=== PATIENT | male | born 1955 | race African-American/Black ===

== ENCOUNTER 2016-12-21 02:11 | Inpatient (IN) | payer MEDICARE, MEDICAID ==
[2016-12-21] VITALS (7 sets, daily range): BP systolic 89–125; BP diastolic 50–62
[~2016-12-21] VITALS: Ht 185.4 cm; Wt 91.3 kg
[~2016-12-21 02:11] MED LIST: ABILIFY5 MG ORAL; ASPIR 8181 MG ORAL; ASPIRIN81 M1 PO; CITALOPRAM HBR20 M1 ORAL; CITALOPRAM HBR20 MG PO; CITALOPRAM10 MG/5 ML PO; COREG6.25 MG ORAL; COREG6.25 MG PO; COUMADIN7.5 MG ORAL; COUMADIN7.5 MG PO; FUROSEMIDE40 MG ORAL; FUROSEMIDE40 MG PO; KLOR-CON 88 MEQ PO; LISINOPRIL5 MG ORAL; METHADONE HCL5 MG PO; NEXIUM40 MG ORAL; NEXIUM40 MG PO; NITROSTAT0.4 MG SL; NORCO 7.5-3251 EACH ORAL; OMEPRAZOLE40 MG PO; OXYCODONE HCL5 M2 ORAL; POTASSIUM CHLOR8 ME3 PO; PRAVACHOL20 MG ORAL; PREVASTATIN SODIUM PO; RANITIDINE HCL150 MG PO; SIMVASTATIN20 MG ORAL; SIMVASTATIN20 MG PO; VICODIN ES 7.51 EACH PO; ZANTAC150 MG ORAL; ZESTRIL5 MG PO
[2016-12-21] MEDS ORDERED: ATIVAN0.5 MG ORAL (02:23)
[2016-12-21] MEDS ORDERED: LASIX40 MG ORAL (02:23)
[2016-12-21] MEDS ORDERED: POTASSIUM CHLO10 ME3 ORAL (02:23)
[2016-12-21] MEDS ORDERED: PROTONIX40 MG ORAL (02:23)
[2016-12-21] MEDS ORDERED: OXYCONTIN20 MG ORAL (02:23)
[2016-12-21] MEDS ORDERED: ASPIR-TRIN325 M1 ORAL (02:23)
[2016-12-21] MEDS ORDERED: CEPHALEXIN500 MG ORAL (02:23)
[2016-12-21] MEDS ORDERED: AMIODARONE HCL200 MG ORAL (02:23)
[2016-12-21] MEDS ORDERED: ROXICODONE15 MG ORAL (02:23)
[2016-12-21] MEDS ORDERED: HYDROmorphone 1mg/ml Carpuject IVP ONE (02:30)
[2016-12-21 02:46] LABS: BASOPHILS % (AUTO) 1.2 % (0.0-2.0); EOSINOPHILS % (AUTO) 4.4 % (0.0-3.0); LYMPHOCYTES % (AUTO) 7.4 % (20.0-45.0); MEAN CORPUSCULAR HEMOGLOBIN 30.1 PG (27.0-31.0); MEAN CORPUSCULAR HGB CONC 31.9 G/DL (32.0-36.0); MEAN CORPUSCULAR VOLUME 95 FL (80-99); MEAN PLATELET VOLUME 7.3 FL (6.5-10.1); MONOCYTES % (AUTO) 7.6 % (1.0-10.0); NEUTROPHILS % (AUTO) 79.4 % (45.0-75.0); PLATELET COUNT 176 K/UL (150-450); RED CELL DISTRIBUTION WIDTH 14.4 % (11.6-14.8); WHITE BLOOD COUNT 7.8 K/UL (4.8-10.8)
[2016-12-21 02:57] LABS: INR 1.1 (0.9-1.1)
[2016-12-21 03:04] LABS: ALANINE AMINOTRANSFERASE 12 U/L (3-41); ALBUMIN/GLOBULIN RATIO 0.9 (1.0-2.7); ANION GAP 14 (5-15); ASPARTATE AMINO TRANSFERASE 27 U/L (5-40); CALCIUM 9.3 mg/dL (8.6-10.2); CARBON DIOXIDE 26 mEQ/L (20-30); CHLORIDE 98 mEQ/L (98-107); CREATININE 1.2 mg/dL (0.7-1.2); GLOMERULAR FILTRATION RATE > 60 mL/min (>60); HEMOLYSIS 2; POTASSIUM 4.4 mEQ/L (3.4-4.9); SODIUM 138 mEQ/L (135-145); TOTAL PROTEIN 6.7 g/dL (6.6-8.7)
[2016-12-21] MEDS ORDERED: Oxycodone/Acetaminophen 5-325 ORAL PRN ×2 (03:30→07:11)
[2016-12-21 03:53] LABS: TROPONIN I < 0.30 ng/mL (<=0.30)
[2016-12-21 03:54] LABS: BILIRUBIN,DIRECT 1.1 mg/dL (0.1-0.3)
--- NOTE | 2016-12-21 04:09 | Emergency Room Report ---
History of Present Illness General Chief Complaint: Chest Pain Source: Patient, Medical Record, EMS Present Illness HPI Is a 61-year-old male with a history of CAD and hypertension. He had a recent tricuspid valve replacement. He was just sent to a skilled nursing for rehabilitation. There he complaining of chest pain and shortness of breath. Was sent here to be evaluated. Patient pain is 10 out of 10. No nausea no vomiting. No fever or chills. No swelling. He has been here in the past for multiple pain complaint. He requested Dilaudid and Benadryl. Allergies: Coded Allergies: DABIGATRAN ETEXILATE (Unverified Allergy, Unknown, 12/21/16) KETOROLAC (Verified Allergy, Unknown, 11/17/11) KETOROLAC TROMETHAMINE (Unverified Allergy, Unknown, 02/05/16) UNK MORPHINE (Verified Allergy, Unknown, 11/17/11) Patient History Past Medical History: see triage record, old chart reviewed, HTN, CAD, CHF Past Surgical History: other Pertinent Family History: none Social History: Denies: drug use Immunizations: other Reviewed Nursing Documentation: PMH: Agreed, PSxH: Agreed Nursing Documentation-PMH Hx Cardiac Problems: Yes - DVT,PE ,IVC filter,3 heart attacks Hx Hypertension: Yes Hx Pacemaker: Yes - Defib/pacemaker Hx COPD: Yes Hx Diabetes: No Hx Cancer: No Hx Gastrointestinal Problems: Yes Hx Neurological Problems: Yes Hx Cerebrovascular Accident: Yes Hx Seizures: Yes Hx Epilepsy: Yes Hx Vertigo: Yes Hx Dizziness: Yes Hx Syncope: Yes Hx Headaches: Yes Hx Numbness: Yes Hx Weakness: Yes - LEFT ARM Hx Fatigue: Yes Review of Systems Eye: Denies: blurred vision, eye pain ENT: Denies: ear pain, nose congestion, throat swelling Respiratory: Denies: cough, shortness of breath Cardiovascular: Reports: chest pain, Denies: palpitations Gastrointestinal: Denies: abdominal pain, diarrhea, nausea, vomiting Musculoskeletal: Denies: back pain, joint pain Skin: Denies: rash Neurological: Denies: headache, numbness Endocrine: Denies: increased thirst, increased urine Hematologic/Lymphatic: Denies: easy bruising All Other Systems: negative except mentioned in HPI Physical Exam Vital Signs Date Time Temp Pulse Resp B/P Pulse Ox O2 Delivery O2 Flow Rate FiO2 12/21/16 02:02 98.4 80 16 118/57 100 Room Air vitals normal Sp02 EP Interpretation: reviewed, normal General Appearance: well appearing, no apparent distress, alert Head: normocephalic, atraumatic Eyes: bilateral eye EOMI, bilateral eye PERRL ENT: hearing grossly normal, normal pharynx Neck: full range of motion, supple, no meningismus Respiratory: chest non-tender, normal breath sounds, rales - Slight rales at the bases Cardiovascular #1: regular rate, rhythm, no murmur Gastrointestinal: normal bowel sounds, non tender, no mass, no organomegaly, no bruit, non-distended Musculoskeletal: back normal, normal range of motion Neurologic: alert, oriented x3 Psychiatric: mood/affect normal Skin: warm/dry Medical Decision Making Diagnostic Impression: Primary Impression: Chest pain Qualified Codes: R07.9 - Chest pain, unspecified Additional Impressions: Opioid dependence Qualified Codes: F11.29 - Opioid dependence with unspecified opioid-induced disorder CHF (congestive heart failure) Qualified Codes: I50.9 - Heart failure, unspecified History of cocaine abuse Anemia Qualified Codes: D64.9 - Anemia, unspecified ER Course Patient presents with chest pain. First set of troponin is negative. I suspect this is more of an opioid/drug-seeking behavior other than cardiac in etiology. Because of his recent surgery, will admit for further workup. He does have some slight fluid overloaded. He diuresed well. I contacted Dr. Michel for admission. Lab Results Impression labs unremarkable EKG Diagnostic Results EKG Time: 04:08 Rate: normal Rhythm: NSR ST Segments: no acute changes Rhythm Strip Diag. Results Rhythm Strip Time: 04:08 EP Interpretation: yes Rate: 80 Rhythm: NSR, no PVC's, no ectopy Chest X-Ray Diagnostic Results Chest X-Ray Diagnostic Results : Chest X-Ray Ordered: Yes # of Views/Limited/Complete: 1 View Indication: Chest Pain EP Interpretation: Yes Interpretation: no consolidation, no pneumothorax, other - CM with right effusion. Last Vital Signs Date Time Temp Pulse Resp B/P Pulse Ox O2 Delivery O2 Flow Rate FiO2 12/21/16 03:22 81 18 Room Air 12/21/16 03:20 125/59 96 12/21/16 02:02 98.4 Status: improved Disposition: ADMITTED INPATIENT Condition: Serious Referrals: Claudio Michel MD (PCP) RONALDO ALVARADO M.D. Dec 21, 2016 04:09
[2016-12-21] MEDS ORDERED: HYDROmorphone 1mg/ml Carpuject IVP PRN ×2 (04:55→08:55)
[2016-12-21] MEDS: HYDROmorphone 1mg/ml Carpuject IVP PRN ×2 (05:39→09:58)
[2016-12-21] MEDS ORDERED: TYLENOL EXTRA500 MG ORAL (06:01)
[2016-12-21] MEDS ORDERED: IPRATROPIU0.2 MG/1 M HHN (06:01)
[2016-12-21] MEDS ORDERED: DOCUSATE SODIU100 MG ORAL (06:01)
[2016-12-21] MEDS ORDERED: ALBUTEROL2.5 MG/3 M INH (06:01)
[2016-12-21] MEDS ORDERED: FLEET ENEMA133 ML RECTAL (06:01)
[2016-12-21] MEDS ORDERED: MILK OF MA400 MG/51 ORAL (06:01)
[2016-12-21] MEDS ORDERED: Miralax 17gm pkt ORAL PRN (06:30)
[2016-12-21] MEDS ORDERED: DuoNeb 0.5-3(2.5)mg/3ml neb HHN PRN (06:30)
--- NOTE | 2016-12-21 08:30 | Diagnostic Imaging Report ---
Indications: Chest pain Technique: Portable AP chest Findings: Comparison: 03/03/14 Cardiac silhouette has increased in size. Pulmonary vascular redistribution, bilateral interstitial infiltrates, bilateral pleural effusions have developed. Calcification and mild elongation aortic arch unchanged. Sternal wires, left chest wall pacemaker now present. IMPRESSION: Development of congestive heart failure Interval sternotomy, pacemaker placement
[2016-12-21] MEDS ORDERED: Heparin 5000 units/ml inj SUBQ SCH (09:00)
[2016-12-21 10:08] LABS: TROPONIN I < 0.30 ng/mL (<=0.30)
--- NOTE | 2016-12-21 10:55 | Consultation ---
History of Present Illness General Date patient seen: Dec 21, 2016 Chief Complaint: Chest Pain Referring physician: Dr. Michel Reason for Consultation: chest pain Present Illness HPI 61 year old male with hx of CAD, underwent tricuspid valve replacement and ICD placement, was transferred to rehab on [place], Pt started having chest pain at the facility and transferred to [facility] [place]. Allergies: Coded Allergies: DABIGATRAN ETEXILATE (Unverified Allergy, Unknown, 12/21/16) KETOROLAC (Verified Allergy, Unknown, 11/17/11) KETOROLAC TROMETHAMINE (Unverified Allergy, Unknown, 02/05/16) UNK MORPHINE (Verified Allergy, Unknown, 11/17/11) Medication History Scheduled Amiodarone Hcl* (Cordarone*), 200 MG ORAL EVERY 12 HOURS, (Reported) Aspirin* (Aspir-Kerry*), 325 MG ORAL DAILY, (Reported) Cephalexin* (Keflex*), 500 MG ORAL EVERY 8 HOURS, (Reported) Docusate Sodium* (Docusate Sodium*), 100 MG ORAL TWICE A DAY, (Reported) Furosemide* (Lasix*), 40 MG ORAL EVERY 12 HOURS, (Reported) Lorazepam* (Ativan*), 0.5 MG ORAL THREE TIMES A DAY, (Reported) Oxycodone Hcl Er* (Oxycontin*), 20 MG ORAL EVERY 12 HOURS, (Reported) Pantoprazole* (Protonix*), 40 MG ORAL DAILY, (Reported) Potassium Chloride (Potassium Chloride), 20 MEQ ORAL DAILY, (Reported) Scheduled PRN Acetaminophen* (Tylenol Extra Strength*), 500 MG ORAL Q6H PRN for Mild Pain/ Temp > 100.5, (Reported) Albuterol Sulfate* (Albuterol Sulfate Hhn*), 3 ML INH Q4H PRN for Shortness of Breath, (Reported) Ipratropium [place] 0.5MG/2.5ML (Ipratropium [place] 0.5MG/2.5ML), 0.5 MG HHN Q4HR PRN for Shortness of Breath, (Reported) Magnesium Hydroxide* (Milk Of Magnesia*), 30 ML ORAL BID PRN for Constipation, ( Reported) Na Phos,M-B/Na Phos,Di-Ba* (Fleet Enema*), 133 ML RECTAL DAILY PRN for Constipation, (Reported) OXYCODONE HCl* (Roxicodone*), 15 MG ORAL Q4HR PRN for For Pain, (Reported) Discontinued Medications Aripiprazole* (Abilify*), 5 MG ORAL DAILY, (Reported) Discontinued Reason: Pt stopped taking med Aspirin* (Aspir 81*), 81 MG ORAL DAILY, (Reported) Discontinued Reason: Pt stopped taking med Carvedilol (Coreg), 6.25 MG ORAL DAILY, (Reported) Discontinued Reason: Pt stopped taking med Citalopram Hydrobromide* (Citalopram Hbr*), 20 MG ORAL BID, (Reported) Discontinued Reason: Pt stopped taking med Esomeprazole Magnesium (Nexium), 40 MG ORAL DAILY, (Reported) Discontinued Reason: Pt stopped taking med Furosemide* (Lasix*), 40 MG ORAL DAILY, (Reported) Discontinued Reason: Pt stopped taking med Hydrocodone Bit/Acetaminophen 7.5-325* ([place] 7.5-325*), 1 TAB ORAL Q6H PRN for For Pain Discontinued Reason: Pt stopped taking med Hydrocodone/Acetaminophen 7.5-750 (Vicodin Es 7.5-750), 1 TAB PO BID, (Reported) Discontinued Reason: Pt stopped taking med Lisinopril (Lisinopril*), 5 MG ORAL BID, (Reported) Discontinued Reason: Pt stopped taking med Methadone Hcl* (Methadone*), 0 PO BID, (Reported) Discontinued Reason: Pt stopped taking med Nitroglycerin (Nitrostat), 0.4 MG SL, (Reported) Discontinued Reason: Pt stopped taking med Omeprazole (Omeprazole), 40 MG PO DAILY, (Reported) Discontinued Reason: Pt stopped taking med Oxycodone Hcl* (Oxycodone Hcl*), MG ORAL PRN, (Reported) Discontinued Reason: Pt stopped taking med Potassium Chloride (Potassium Chloride), 8 MEQ PO BID, (Reported) Discontinued Reason: Pt stopped taking med Pravastatin Sod* (Pravachol*), 20 MG ORAL BEDTIME, (Reported) Discontinued Reason: Pt stopped taking med Ranitidine Hcl* (Zantac*), 150 MG ORAL DAILY, (Reported) Discontinued Reason: Pt stopped taking med Simvastatin (Zocor), 20 MG ORAL BEDTIME, (Reported) Discontinued Reason: Pt stopped taking med Warfarin Sod (Coumadin*), 7.5 MG ORAL DAILY, (Reported) Discontinued Reason: Pt stopped taking med Patient History Healthcare decision maker Resuscitation status Full Code Advanced Directive on File Past Medical/Surgical History Past Medical/Surgical History: (1) History of cocaine abuse (2) Opioid dependence (3) Hypertension (4) History of DVT (deep vein thrombosis) (5) Cardiomyopathy (6) Depression Review of Systems All Other Systems: negative except mentioned in HPI Physical Exam General Appearance: WD/WN, no apparent distress Lines, tubes and drains: peripheral HEENT: normocephalic, atraumatic Neck: non-tender, normal alignment Respiratory/Chest: chest wall non-tender, lungs clear Breasts: no masses Cardiovascular/Chest: normal peripheral pulses, pacemaker/AICD, other - chest wall tenderness Abdomen: normal bowel sounds, non tender Genitourinary/Rectal: normal genital exam, normal rectal exam Extremities: normal range of motion, non-tender Skin Exam: normal pigmentation Neurologic: director of residential services II-XII grossly normal Last 24 Hour Vital Signs Date Time Temp Pulse Resp B/P Pulse Ox O2 Delivery O2 Flow Rate FiO2 12/21/16 09:50 80 18 106/55 99 Nasal Cannula 3.0 12/21/16 08:00 98.2 80 22 89/50 100 Nasal Cannula 3.0 12/21/16 07:24 80 12/21/16 07:11 Nasal Cannula 3.0 32 12/21/16 07:11 98 Nasal Cannula 3.0 32 12/21/16 07:11 83 18 Nasal Cannula 3.0 32 12/21/16 04:16 98.4 18 125/59 96 Room Air 12/21/16 03:22 81 18 Room Air 12/21/16 03:20 81 18 125/59 96 Room Air 12/21/16 02:02 98.4 80 16 118/57 100 Room Air Intake and Output 12/20/16 12/21/16 19:00 07:00 Intake Total 0 ml Output Total 0 ml Balance 0 ml Intake Oral 0 ml Output Urine Total 0 ml Laboratory Tests Test 12/21/16 02:22 12/21/16 08:10 White Blood Count 7.8 K/UL (4.8-10.8) Red Blood Count 2.90 M/UL (4.70-6.10) L Hemoglobin 8.7 G/DL (14.2-18.0) L Hematocrit 27.4 % (42.0-52.0) L Mean Corpuscular Volume 95 FL (80-99) Mean Corpuscular Hemoglobin 30.1 PG (27.0-31.0) Mean Corpuscular Hemoglobin Concent 31.9 G/DL (32.0-36.0) L Red Cell Distribution Width 14.4 % (11.6-14.8) Platelet Count 176 K/UL (150-450) Mean Platelet Volume 7.3 FL (6.5-10.1) Neutrophils (%) (Auto) 79.4 % (45.0-75.0) H Lymphocytes (%) (Auto) 7.4 % (20.0-45.0) L Monocytes (%) (Auto) 7.6 % (1.0-10.0) Eosinophils (%) (Auto) 4.4 % (0.0-3.0) H Basophils (%) (Auto) 1.2 % (0.0-2.0) Prothrombin Time 12.0 SEC (9.30-11.50) H Prothromb Time International Ratio 1.1 (0.9-1.1) Activated Partial Thromboplast Time 27 SEC (23-33) Sodium Level 138 mEQ/L (135-145) Potassium Level 4.4 mEQ/L (3.4-4.9) Chloride Level 98 mEQ/L (98-107) Carbon Dioxide Level 26 mEQ/L (20-30) Anion Gap 14 (5-15) Blood Urea Nitrogen 15 mg/dL (7-23) Creatinine 1.2 mg/dL (0.7-1.2) Estimat Glomerular Filtration Rate > 60 mL/min (>60) Glucose Level 102 mg/dL (74-106) Calcium Level 9.3 mg/dL (8.6-10.2) Total Bilirubin 1.9 mg/dL (0.0-1.2) H Direct Bilirubin 1.1 mg/dL (0.1-0.3) H Aspartate Amino Transf (AST/SGOT) 27 U/L (5-40) Alanine Aminotransferase (ALT/SGPT) 12 U/L (3-41) Alkaline Phosphatase 325 U/L (40-129) H Total Creatine Kinase 97 U/L (38-174) Creatine Kinase MB 2.0 ng/mL (< 6.7) Creatine Kinase MB Relative Index 2.0 Troponin I < 0.30 ng/mL (<=0.30) < 0.30 ng/mL (<=0.30) Pro-B-Type Natriuretic Peptide 3221 pg/mL (0-125) H Total Protein 6.7 g/dL (6.6-8.7) Albumin 3.3 g/dL (3.5-5.2) L Globulin 3.4 g/dL Albumin/Globulin Ratio 0.9 (1.0-2.7) L Height (Feet): 6 Height (Inches): 1.00 Weight (Pounds): 215 Medications Current Medications Medications (Trade) Dose Ordered Sig/Ana Route PRN Reason Start Time Stop Time Status Last Admin Dose Admin Acetaminophen (Tylenol) 650 mg Q4H PRN ORAL T>100.5 12/21/16 06:30 01/20/17 06:29 Albuterol/ Ipratropium (DuoNeb 0.5-3(2.5)mg/3ml) 3 ml Q4H PRN HHN Shortness of Breath 12/21/16 06:30 12/26/16 06:29 Dextrose (Dextrose 50%) STAT PRN IV Hypoglycemia 12/21/16 06:30 01/20/17 06:29 Furosemide (Lasix) 40 mg EVERY 8 HOURS IV 12/21/16 14:00 01/20/17 13:59 Heparin Sodium (Porcine) (Heparin 5000 units/ml) 5,000 units EVERY 12 HOURS SUBQ 12/21/16 09:00 01/20/17 08:59 12/21/16 09:38 Hydromorphone HCl (Dilaudid) 1 mg Q4H PRN IVP For Pain 12/21/16 05:28 12/28/16 05:27 12/21/16 09:58 Ondansetron HCl (Zofran) 4 mg Q6H PRN IVP Nausea & Vomiting 12/21/16 06:30 01/20/17 06:29 Oxycodone/ Acetaminophen (Percocet 5-325) 1 tab Q4H PRN ORAL Moderate Pain (Pain Scale 4-6) 12/21/16 07:11 12/28/16 03:29 Polyethylene Glycol (Miralax) 17 gm DAILYPRN PRN ORAL Constipation 12/21/16 06:30 01/20/17 06:29 Temazepam (Restoril) 15 mg HSPRN PRN ORAL Insomnia 12/21/16 21:00 12/28/16 20:59 Assessment/Plan Problem List: (1) Chest wall pain following surgery ICD Codes: G89.12 - Acute post-thoracotomy pain SNOMED: 181468481 (2) COPD (chronic obstructive pulmonary disease) ICD Codes: J44.9 - Chronic obstructive pulmonary disease, unspecified SNOMED: 28746349 (3) Cardiomyopathy ICD Codes: I42.9 - Cardiomyopathy SNOMED: 85168196 Assessment/Plan symptomatic treatment doubt acute ACS echo diuretics cardiology evaluation BLAKE SHETTY Dec 21, 2016 10:55
[2016-12-21] MEDS: Eucerin Cream 15gm TOPIC SCH (14:56)
--- NOTE | 2016-12-21 17:57 | Cardiology Progress Note ---
Assessment/Plan Assessment/Plan [id number] full note dicated noton naticoagualtion ? lv thrmbus will start lwo dose heparin keep ptt about 50 after 24 hour start on couamdin watch for periocardil bleedigng Objective Last 24 Hour Vital Signs Date Time Temp Pulse Resp B/P Pulse Ox O2 Delivery O2 Flow Rate FiO2 12/21/16 16:00 80 12/21/16 14:20 80 113/59 12/21/16 12:10 88 18 100 Nasal Cannula 2.0 12/21/16 12:00 98.2 80 21 101/54 99 Nasal Cannula 3.0 12/21/16 11:50 80 16 99 Nasal Cannula 2.0 12/21/16 11:39 80 12/21/16 09:50 80 18 106/55 99 Nasal Cannula 3.0 12/21/16 08:00 98.2 80 22 89/50 100 Nasal Cannula 3.0 12/21/16 07:24 80 12/21/16 07:11 Nasal Cannula 3.0 32 12/21/16 07:11 98 Nasal Cannula 3.0 32 12/21/16 07:11 83 18 Nasal Cannula 3.0 32 12/21/16 04:16 98.4 18 125/59 96 Room Air 12/21/16 03:22 81 18 Room Air 12/21/16 03:20 81 18 125/59 96 Room Air 12/21/16 02:02 98.4 80 16 118/57 100 Room Air Intake and Output 12/20/16 12/21/16 19:00 07:00 Intake Total 0 ml Output Total 0 ml Balance 0 ml Intake Oral 0 ml Output Urine Total 0 ml Laboratory Tests Test 12/21/16 02:22 12/21/16 08:10 White Blood Count 7.8 K/UL (4.8-10.8) Red Blood Count 2.90 M/UL (4.70-6.10) L Hemoglobin 8.7 G/DL (14.2-18.0) L Hematocrit 27.4 % (42.0-52.0) L Mean Corpuscular Volume 95 FL (80-99) Mean Corpuscular Hemoglobin 30.1 PG (27.0-31.0) Mean Corpuscular Hemoglobin Concent 31.9 G/DL (32.0-36.0) L Red Cell Distribution Width 14.4 % (11.6-14.8) Platelet Count 176 K/UL (150-450) Mean Platelet Volume 7.3 FL (6.5-10.1) Neutrophils (%) (Auto) 79.4 % (45.0-75.0) H Lymphocytes (%) (Auto) 7.4 % (20.0-45.0) L Monocytes (%) (Auto) 7.6 % (1.0-10.0) Eosinophils (%) (Auto) 4.4 % (0.0-3.0) H Basophils (%) (Auto) 1.2 % (0.0-2.0) Prothrombin Time 12.0 SEC (9.30-11.50) H Prothromb Time International Ratio 1.1 (0.9-1.1) Activated Partial Thromboplast Time 27 SEC (23-33) Sodium Level 138 mEQ/L (135-145) Potassium Level 4.4 mEQ/L (3.4-4.9) Chloride Level 98 mEQ/L (98-107) Carbon Dioxide Level 26 mEQ/L (20-30) Anion Gap 14 (5-15) Blood Urea Nitrogen 15 mg/dL (7-23) Creatinine 1.2 mg/dL (0.7-1.2) Estimat Glomerular Filtration Rate > 60 mL/min (>60) Glucose Level 102 mg/dL (74-106) Calcium Level 9.3 mg/dL (8.6-10.2) Total Bilirubin 1.9 mg/dL (0.0-1.2) H Direct Bilirubin 1.1 mg/dL (0.1-0.3) H Aspartate Amino Transf (AST/SGOT) 27 U/L (5-40) Alanine Aminotransferase (ALT/SGPT) 12 U/L (3-41) Alkaline Phosphatase 325 U/L (40-129) H Total Creatine Kinase 97 U/L (38-174) Creatine Kinase MB 2.0 ng/mL (< 6.7) Creatine Kinase MB Relative Index 2.0 Troponin I < 0.30 ng/mL (<=0.30) < 0.30 ng/mL (<=0.30) Pro-B-Type Natriuretic Peptide 3221 pg/mL (0-125) H Total Protein 6.7 g/dL (6.6-8.7) Albumin 3.3 g/dL (3.5-5.2) L Globulin 3.4 g/dL Albumin/Globulin Ratio 0.9 (1.0-2.7) L AZ ALVAREZ Dec 21, 2016 17:57
[2016-12-21] MEDS ORDERED: Heparin 5000 units/ml inj IV ONE (18:00)
[2016-12-21 18:39] LABS: MEAN CORPUSCULAR HEMOGLOBIN 30.7 PG (27.0-31.0); MEAN CORPUSCULAR HGB CONC 32.5 G/DL (32.0-36.0); MEAN CORPUSCULAR VOLUME 94 FL (80-99); MEAN PLATELET VOLUME 6.1 FL (6.5-10.1); PLATELET COUNT 150 K/UL (150-450); RED BLOOD COUNT 2.56 M/UL (4.70-6.10); RED CELL DISTRIBUTION WIDTH 14.4 % (11.6-14.8); WHITE BLOOD COUNT 6.8 K/UL (4.8-10.8)
[2016-12-21] MEDS ORDERED: Heparin 25,000u/D5W 500ml 500 ML IV SCH ×2 (18:45→18:47)
--- NOTE | 2016-12-21 19:50 | History & Physical ---
History and Physical History & Physicial Dictated for Int Med-Dr Michel no. [id number]. ISAIAS ORTIZ Dec 21, 2016 19:50
[2016-12-21 19:54] LABS: ANISOCYTOSIS 1+; BAND NEUTROPHILS % (MANUAL) 0 % (0-8); BASOPHILS % (MANUAL) 1 % (0-2); EOSINOPHILS % (MANUAL) 3 % (0-3); HYPOCHROMASIA 1+; LYMPHOCYTES % (MANUAL) 15 % (20-45); NEUTROPHILS % (MANUAL) 73 % (45-75); PLATELET ESTIMATE ADEQUATE; PLATELET MORPHOLOGY NORMAL; TOTAL CELLS COUNTED 100
[2016-12-21] MEDS: Cephalexin 500mg cap ORAL SCH (20:22)
[2016-12-21] MEDS: Amiodarone 200mg tab ORAL SCH (20:22)
[2016-12-21] MEDS: LORazepam 0.5mg tab ORAL PRN (22:25)
[2016-12-21 22:44] LABS: APPEARANCE,URINE CLEAR; KETONES,URINE NEGATIVE (NEGATIVE); LEUKOCYTE ESTERASE ,URINE 1+ (NEGATIVE); NITRITE,URINE NEGATIVE (NEGATIVE); PH,URINE 6 (4.5-8.0); PROTEIN,URINE 2+ (NEGATIVE); UROBILINOGEN,URINE 12 MG/DL (0.0-1.0)
[2016-12-21 22:53] LABS: AMORPHOUS SEDIMENT,UR FEW /LPF; BACTERIA,URINE FEW /HPF; RBC,URINE 0-2 /HPF (0 - 0)
[2016-12-21 22:54] LABS: ICTOTEST NEGATIVE
[2016-12-22 00:02] VITALS: BP 110/57
[2016-12-22 04:00] VITALS: BP 126/69
--- NOTE | 2016-12-22 04:28 | Consultation ---
DATE OF CONSULTATION: 12/21/2016 CARDIOLOGY CONSULTATION REFERRING PHYSICIAN: Claudio Michel M.D. REASON FOR REFERRAL: Chest pain and shortness of breath. HISTORY OF PRESENT ILLNESS: This 61-year-old gentleman with history of multiple medical problems. The patient has been hospitalized at [facility] between 10/28/2016 and was discharged yesterday. A number number of surgeries performed on his heart, in fact four procedures apparently. According to the patient, he was subsequently discharged yesterday to a convalescent facility. When he got there, he complained of shortness of breath and chest pressure. He was transferred to the emergency room here at [facility] and was readmitted. He feels better at the present time. He indicates that the pressure was present even before the surgery, but improved, now occurred again and he was more short of breath than usual. He has had some dizziness when he stands up, but not to the point of passing out, and he has shortness of breath on exertion, uses two pillows with the head of bed elevation, cannot sleep at night at all for various reasons so he cannot tell when he wakes up because of shortness of breath. PAST MEDICAL HISTORY: Extensive. He has been hospitalized previously here at [facility], but several things have occurred since then. The patient's most recent records in the ICU notes from [facility], he apparently has a history of ischemic cardiomyopathy, intracardiac defibrillator placement for permanent pacing as well as factor V Leiden deficiency, venous thromboembolism, CVA, and IVC filter. He was transferred because of congestive heart failure and signs of tricuspid regurgitation with congestion in setting of normal coronary angiogram with ejection fraction of 52% and status post tricuspid valve annuloplasty on 11/21/2016 recovered well on the floor and was transferred back to ICU for worsening , found to have tamponade, has the pericardial window on 12/04/2016 and subsequently had another procedure for removal of atrial lead, he had a permanent pacemaker revision, he had some function and eventually was apparently doing well. He also has a history of chronic back pain, deep venous thrombosis as mentioned, narcotic drug use, pleural effusion on the right side, and tricuspid valvular disorder as well as left-sided weakness, narcotic use, panic disorder, agoraphobia, pericardial effusion, pleural effusions, right heart failure, systolic heart failure, history of chronic recurrent chest pain. ALLERGIES: Toradol and Pradaxa. SOCIAL HISTORY: He used to smoke, use cocaine, and alcohol. REVIEW OF SYSTEMS: Gastrointestinal: He does have some constipation and some nausea. No bloody or black stool. Genitourinary: No discomfort on urination. Pulmonary: Occasional coughing. Constitutional: Negative. Neurologic: Negative. PHYSICAL EXAMINATION: GENERAL: The patient is an elderly gentleman, in no respiratory distress. He is lying down approximately 30 degrees head of bed elevation including two pillows that he is using. NECK: Supple. LUNGS: His lungs are relatively clear, although decreased breath sounds at the right base is noted. CARDIAC: Regular rate and rhythm. No heaves or thrills noted. ABDOMEN: Soft. There is some tenderness. No guarding. EXTREMITIES: There is a dressing on his legs bilaterally distal to the knees from reaction that he had to Eliquis according to himself. NEUROLOGIC: He is awake, responsive, and in no apparent respiratory distress. LABORATORY AND DIAGNOSTIC DATA: His laboratory values today white count is 7.8, hemoglobin 8.7, and platelet count of 176,000. His sodium 138, potassium 4.4, chloride 98, bicarbonate 26, BUN 15, creatinine 1.2, and glucose of 102. Bilirubin of 1.9. Alkaline phosphatase was 325. CK of 97. Three sets of cardiac enzymes are negative. ProBNP is only 3200. Albumin is 3.3. Coagulations, INR of 1.1 and PTT of 27. Chest x-ray shows congestive heart failure, sternotomy, and pacemaker implantation. Venous duplex, there is no evidence of DVT. CT angiogram showed no evidence of pulmonary embolism or aortic dissection, dependent atelectasis and cardiomegaly was noted. Aorta was normal caliber. He had chest x-ray that showed development of congestive heart failure and sternotomy and venous duplex showed no evidence of deep venous thrombosis. Preliminary echocardiogram shows septal hypokinesis, synchronous motion may be secondary to pacing, echogenic material found in the apex, cannot exclude thrombus, ejection fraction 40% to 45%, technically difficult study, moderate biatrial enlargement, and mild aortic vegetation. Aortic valve of 3, moderate mitral regurgitation with peak mitral valve of 5 mean of 2, mitral flow pseudo normalized, tricuspid velocities systolic pressure of 52. ASSESSMENT AND PLAN: 1. Congestive heart failure. 2. Questionable apical left ventricular thrombus. 3. Factor V Leiden deficiency, off anticoagulation due to removal of atrial leads on the 12/15/2016. 4. Recent tricuspid annuloplasty repair with a 30 Chadwick-Castanon pericardial valve. 5. Tamponade status post pericardial window. 6. Permanent pacemaker implantable cardioversion defibrillator implantation with atrial leads, redo recently. 7. Pleural effusion status post thoracentesis possibly. 8. Ischemic cardiomyopathy. 9. History of cerebrovascular accident. 10. History of inferior vena cava filter placement. 11. Renal insufficiency history. Dr. Adler, this patient was seen in cardiac consultation. It appears that the patient is not on anticoagulation, should be because of the factor V Leiden deficiency and has a possibility of a left ventricular thrombus. His pacemaker lead was removed six days ago and I suspect it will be okay to resume him on anticoagulation, although, I am not sure while that had not been initiated prior to his discharge. His medications on discharge do not include anticoagulation, but he has been maintained on unfractionated heparin subcutaneous injections for DVT prophylaxis. In either case, I think we do not have any cardiothoracic surgeon on staff here and I suspect that it should be okay by now, I will try to see if I can find out if safe to start him on blood thinners at this time and do so. He should be continued on diuretics. I do not think he needs any THUY inhibitors or ARBs as his LV function is not that bad. He should be watched on telemetry. His amiodarone should be continued and further recommendations depending on the results of his response to the above treatment. The case is quite complicated, highly dangerous, and threatening. Louis Orozco M.D. DR: TYRELL JOB#: [id number] CC:
--- NOTE | 2016-12-22 04:28 | History and Physical Report ---
DATE OF ADMISSION: 12/21/2016 CHIEF COMPLAINT: The patient is a 61-year-old, male, who presents with chief complaint of chest pain. HISTORY OF PRESENT ILLNESS: The patient was admitted to [facility] from 10/27/2016 to 12/20/2016. [facility]. The patient underwent a tricuspid valve replacement at [facility]. The patient also underwent a defibrillator replacement at that time, annuloplasty on 11/21/2016 and a pacemaker replacement at that time. The patient also had a pericardial window placed on 12/04/2016. The patient [facility] at [facility] yesterday 12/[facility]/2016. Early this morning, 12/21/2016, approximately 12:30 a.m., the patient began to experience chest pain. Chest pain is substernal in nature. It is constant. It radiates to the left shoulder. The patient presented to [facility]. The patient was admitted for chest pain to rule out acute coronary syndrome. PAST MEDICAL HISTORY: Significant for, 1. Congestive heart failure. 2. Tricuspid bowel insufficiency as above. 3. Factor 5 Leiden deficiency. 4. History of cerebrovascular accident. 5. History of deep venous thrombosis. PAST SURGICAL HISTORY: Significant for, 1. Tricuspid valve annuloplasty on 11/21/2016, as above. 2. Pericardial window, as above. 3. Pacemaker implantation and replacement, as above. CURRENT MEDICATIONS: 1. Tylenol 500 mg one tablet p.o. q.4 hours p.r.n. 2. Albuterol 2.5 mg nebulized q.4 hours p.r.n. 3. Amiodarone 200 mg one tablet p.o. twice daily. 4. Aspirin 325 mg one tablet p.o. daily. 5. Keflex 500 mg one tablet p.o. four times daily. 6. Lasix 40 mg one tablet p.o. q.2 hours. 7. Atrovent 0.5 mg q.4 hours p.r.n. 8. Ativan 0.5 mg one tablet p.o. 3 times daily. 9. Oxycodone 20 mg one tablet p.o. twice daily. 10. Oxycodone 15 mg one tablet p.o. q.4 hours p.r.n. 11. Protonix 40 mg one tablet p.o. daily. 12. Potassium chloride 10 mEq one tablet p.o. daily. ALLERGIES: To Toradol and morphine, however, the patient states that he has tolerated morphine in the past with Benadryl. 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 The patient denies tobacco or alcohol use. REVIEW OF SYSTEMS: Constitutional: The patient denies weight loss or weight gain. The patient denies fevers or chills. HEENT: The patient denies ear or throat pain. The patient denies headache. Cardiovascular: The patient complains of chest pain as above. The patient denies palpitations. Abdomen: The patient denies nausea, vomiting, diarrhea, or constipation. Genitourinary: The patient denies dysuria or increased frequency of urination. Neuromuscular: The patient denies seizures or generalized weakness. PHYSICAL EXAMINATION: VITAL SIGNS: Temperature 97.5 degrees, respirations 22, pulse 80, and blood pressure 112/62. GENERAL: The patient is a well-developed, well-nourished, male, in no apparent distress. HEENT: Pupils are equal and responsive to light and accommodation. Extraocular movements are intact. NECK: Supple without lymphadenopathy. CHEST: Lungs are clear to auscultation bilaterally with crackles at bilateral bases. ABDOMEN: Soft, nontender, and nondistended. Positive bowel sounds. No hepatosplenomegaly. Currently, no rebound or guarding noted. CARDIOVASCULAR: Regular rhythm and rate. S1 and S2 are normal with 2/6 systolic ejection murmur. EXTREMITIES: Negative for clubbing, cyanosis, or edema. RECTAL: Refused. GENITAL: Refused. NEUROLOGIC: Cranial nerves II through XII are grossly intact without focal deficits. Motor strength is 5/5 bilaterally. Deep tendon reflexes are 2+ plantar. LABORATORY STUDIES: WBC 7.8, hemoglobin 8.2, hematocrit 27.4, and platelets 176,000. Sodium 138, potassium 4.4, chloride 98, CO2 26, BUN 15, creatinine 1.2, and glucose 102. Total bilirubin elevated at 1.9. Direct bilirubin elevated at 1.1. Troponin is less than 0.3. BNP elevated at 3221. ASSESSMENT: This is a 61-year-old male. 1. Congestive heart failure. 2. Chest pain. 3. Factor 5 Leiden deficiency. 4. Tricuspid valve regurgitation. 5. History of cerebrovascular accident. 6. History of deep venous thrombosis. TREATMENT: 1. Congestive heart failure/tricuspid regurgitation. The patient is status post tricuspid annuloplasty as above. A Cardiology consultation was obtained with Dr. Louis Orozco. Serial troponin levels will be run. The patient has been started empirically on Lasix. An echocardiogram is pending. 2. Factor 5 Leiden deficiency/deep venous thrombosis. The patient is status post IVC filter placement. 3. History of cerebrovascular accident. Logan Awan M.D. DR: LISA JOB#: [id number] CC:
[2016-12-22] MEDS: Cephalexin 500mg cap ORAL SCH ×3 (06:01→21:34)
--- NOTE | 2016-12-22 07:30 | Cardiology Progress Note ---
Assessment/Plan Assessment/Plan 1. Congestive heart failure. 2. Questionable apical left ventricular thrombus. 3. Factor V Leiden deficiency, off anticoagulation due to removal of atrial leads on the 12/15/2016. 4. Recent tricuspid annuloplasty repair with a 30 Chadwick-Castanon pericardial valve. 5. Tamponade status post pericardial window. 6. Permanent pacemaker implantable cardioversion defibrillator implantation with atrial leads, redo recently. 7. Pleural effusion status post thoracentesis possibly. 8. Ischemic cardiomyopathy. 9. History of cerebrovascular accident. 10. History of inferior vena cava filter placement. 11. Renal insufficiency history. 12. anemia with acute drop in h/h 13. ? LV thrombus 14. Eliquis intolerance heparin never started as hgb dropped await stool sample no labs yet as pt hard stick may need picc line seem better to me will decrease lasix would like to start low dose heparin iff hgb ok and no bleeding will d/w pmd Subjective Cardiovascular: Reports: chest pain - some , Denies: lightheadedness, palpitations Respiratory: Reports: shortness of breath - some still Gastrointestinal/Abdominal: Denies: abdominal pain Genitourinary: Denies: burning Objective Last 24 Hour Vital Signs Date Time Temp Pulse Resp B/P Pulse Ox O2 Delivery O2 Flow Rate FiO2 12/22/16 04:00 80 12/22/16 04:00 97.9 80 18 126/69 98 Nasal Cannula 2.0 28 12/22/16 00:02 97.9 80 20 110/57 100 Nasal Cannula 2.0 28 12/22/16 00:00 80 12/21/16 20:01 98.2 80 20 109/62 100 Nasal Cannula 2.0 12/21/16 20:00 80 12/21/16 19:22 80 18 Nasal Cannula 2.0 12/21/16 19:21 Nasal Cannula 2.0 28 12/21/16 19:21 98 Nasal Cannula 2.0 28 12/21/16 16:30 97.5 80 22 112/62 98 Nasal Cannula 2.0 12/21/16 16:00 80 12/21/16 14:20 80 113/59 12/21/16 12:10 88 18 100 Nasal Cannula 2.0 12/21/16 12:00 98.2 80 21 101/54 99 Nasal Cannula 3.0 12/21/16 11:50 80 16 99 Nasal Cannula 2.0 12/21/16 11:39 80 12/21/16 09:50 80 18 106/55 99 Nasal Cannula 3.0 12/21/16 08:00 98.2 80 22 89/50 100 Nasal Cannula 3.0 General Appearance: no apparent distress, alert Neck: no JVD Cardiovascular: normal rate, regular rhythm Respiratory/Chest: crackles/rales - right base only Abdomen: normal bowel sounds, non tender, soft Extremities: other - bilaterally dresed Intake and Output 12/21/16 12/22/16 19:00 07:00 Intake Total 340 ml 120 ml Output Total 500 ml Balance 340 ml -380 ml Intake Oral 340 ml 120 ml Output Urine Total 500 ml Laboratory Tests Test 12/21/16 08:10 12/21/16 18:15 12/21/16 22:21 Troponin I < 0.30 ng/mL (<=0.30) White Blood Count 6.8 K/UL (4.8-10.8) Red Blood Count 2.56 M/UL (4.70-6.10) L Hemoglobin 7.8 G/DL (14.2-18.0) L Hematocrit 24.1 % (42.0-52.0) L Mean Corpuscular Volume 94 FL (80-99) Mean Corpuscular Hemoglobin 30.7 PG (27.0-31.0) Mean Corpuscular Hemoglobin Concent 32.5 G/DL (32.0-36.0) Red Cell Distribution Width 14.4 % (11.6-14.8) Platelet Count 150 K/UL (150-450) Mean Platelet Volume 6.1 FL (6.5-10.1) L Neutrophils (%) (Auto) % (45.0-75.0) Lymphocytes (%) (Auto) % (20.0-45.0) Monocytes (%) (Auto) % (1.0-10.0) Eosinophils (%) (Auto) % (0.0-3.0) Basophils (%) (Auto) % (0.0-2.0) Differential Total Cells Counted 100 Neutrophils % (Manual) 73 % (45-75) Lymphocytes % (Manual) 15 % (20-45) L Monocytes % (Manual) 8 % (1-10) Eosinophils % (Manual) 3 % (0-3) Basophils % (Manual) 1 % (0-2) Band Neutrophils 0 % (0-8) Platelet Estimate Adequate Platelet Morphology Normal Hypochromasia 1+ Anisocytosis 1+ Activated Partial Thromboplast Time 27 SEC (23-33) Urine Color Brown Urine Appearance Clear Urine pH 6 (4.5-8.0) Urine Specific [place] 1.015 (1.005-1.035) Urine Protein 2+ (NEGATIVE) H Urine Glucose (UA) Negative (NEGATIVE) Urine Ketones Negative (NEGATIVE) Urine Occult Blood Negative (NEGATIVE) Urine Nitrite Negative (NEGATIVE) Urine Bilirubin 1+ (NEGATIVE) H Urine Ictotest Negative Urine Urobilinogen 12 MG/DL (0.0-1.0) H Urine Leukocyte Esterase 1+ (NEGATIVE) H Urine RBC 0-2 /HPF (0 - 0) H Urine WBC 2-4 /HPF (0 - 0) Urine Squamous Epithelial Cells None /LPF (NONE/OCC) Urine Amorphous Sediment Few /LPF (NONE) H Urine Bacteria Few /HPF (NONE) [place] ALVAREZ Dec 22, 2016 07:30
[2016-12-22 08:00] VITALS: BP 115/66
[2016-12-22] MEDS: Aspirin EC 325mg tab ORAL SCH (08:20)
[2016-12-22] MEDS: LORazepam 0.5mg tab ORAL PRN (08:20)
[2016-12-22] MEDS: Amiodarone 200mg tab ORAL SCH ×2 (08:20→21:34)
--- NOTE | 2016-12-22 08:54 | Consultation ---
History of Present Illness General Chief Complaint: Chest Pain Referring physician: Dr. Michel Reason for Consultation: chest pain Present Illness Allergies: Coded Allergies: DABIGATRAN ETEXILATE (Unverified Allergy, Unknown, 12/21/16) KETOROLAC (Verified Allergy, Unknown, 11/17/11) KETOROLAC TROMETHAMINE (Unverified Allergy, Unknown, 02/05/16) UNK MORPHINE (Verified Allergy, Unknown, 11/17/11) Medication History Scheduled Amiodarone Hcl* (Cordarone*), 200 MG ORAL EVERY 12 HOURS, (Reported) Aspirin* (Aspir-Kerry*), 325 MG ORAL DAILY, (Reported) Cephalexin* (Keflex*), 500 MG ORAL EVERY 8 HOURS, (Reported) Docusate Sodium* (Docusate Sodium*), 100 MG ORAL TWICE A DAY, (Reported) Furosemide* (Lasix*), 40 MG ORAL EVERY 12 HOURS, (Reported) Lorazepam* (Ativan*), 0.5 MG ORAL THREE TIMES A DAY, (Reported) Oxycodone Hcl Er* (Oxycontin*), 20 MG ORAL EVERY 12 HOURS, (Reported) Pantoprazole* (Protonix*), 40 MG ORAL DAILY, (Reported) Potassium Chloride (Potassium Chloride), 20 MEQ ORAL DAILY, (Reported) Scheduled PRN Acetaminophen* (Tylenol Extra Strength*), 500 MG ORAL Q6H PRN for Mild Pain/ Temp > 100.5, (Reported) Albuterol Sulfate* (Albuterol Sulfate Hhn*), 3 ML INH Q4H PRN for Shortness of Breath, (Reported) Ipratropium [place] 0.5MG/2.5ML (Ipratropium [place] 0.5MG/2.5ML), 0.5 MG HHN Q4HR PRN for Shortness of Breath, (Reported) Magnesium Hydroxide* (Milk Of Magnesia*), 30 ML ORAL BID PRN for Constipation, ( Reported) Na Phos,M-B/Na Phos,Di-Ba* (Fleet Enema*), 133 ML RECTAL DAILY PRN for Constipation, (Reported) OXYCODONE HCl* (Roxicodone*), 15 MG ORAL Q4HR PRN for For Pain, (Reported) Discontinued Medications Aripiprazole* (Abilify*), 5 MG ORAL DAILY, (Reported) Discontinued Reason: Pt stopped taking med Aspirin* (Aspir 81*), 81 MG ORAL DAILY, (Reported) Discontinued Reason: Pt stopped taking med Carvedilol (Coreg), 6.25 MG ORAL DAILY, (Reported) Discontinued Reason: Pt stopped taking med Citalopram Hydrobromide* (Citalopram Hbr*), 20 MG ORAL BID, (Reported) Discontinued Reason: Pt stopped taking med Esomeprazole Magnesium (Nexium), 40 MG ORAL DAILY, (Reported) Discontinued Reason: Pt stopped taking med Furosemide* (Lasix*), 40 MG ORAL DAILY, (Reported) Discontinued Reason: Pt stopped taking med Hydrocodone Bit/Acetaminophen 7.5-325* (Denio 7.5-325*), 1 TAB ORAL Q6H PRN for For Pain Discontinued Reason: Pt stopped taking med Hydrocodone/Acetaminophen 7.5-750 (Vicodin Es 7.5-750), 1 TAB PO BID, (Reported) Discontinued Reason: Pt stopped taking med Lisinopril (Lisinopril*), 5 MG ORAL BID, (Reported) Discontinued Reason: Pt stopped taking med Methadone Hcl* (Methadone*), 0 PO BID, (Reported) Discontinued Reason: Pt stopped taking med Nitroglycerin (Nitrostat), 0.4 MG SL, (Reported) Discontinued Reason: Pt stopped taking med Omeprazole (Omeprazole), 40 MG PO DAILY, (Reported) Discontinued Reason: Pt stopped taking med Oxycodone Hcl* (Oxycodone Hcl*), MG ORAL PRN, (Reported) Discontinued Reason: Pt stopped taking med Potassium Chloride (Potassium Chloride), 8 MEQ PO BID, (Reported) Discontinued Reason: Pt stopped taking med Pravastatin Sod* (Pravachol*), 20 MG ORAL BEDTIME, (Reported) Discontinued Reason: Pt stopped taking med Ranitidine Hcl* (Zantac*), 150 MG ORAL DAILY, (Reported) Discontinued Reason: Pt stopped taking med Simvastatin (Zocor), 20 MG ORAL BEDTIME, (Reported) Discontinued Reason: Pt stopped taking med Warfarin Sod (Coumadin*), 7.5 MG ORAL DAILY, (Reported) Discontinued Reason: Pt stopped taking med Patient History Healthcare decision maker Resuscitation status Full Code Advanced Directive on File Physical Exam Last 24 Hour Vital Signs Date Time Temp Pulse Resp B/P Pulse Ox O2 Delivery O2 Flow Rate FiO2 7/14/17 08:00 98.2 80 21 115/66 98 Nasal Cannula 2.0 12/22/16 07:58 Nasal Cannula 2.0 12/22/16 07:58 98 Nasal Cannula 2.0 12/22/16 07:57 80 16 Nasal Cannula 2.0 12/22/16 04:00 80 12/22/16 04:00 97.9 80 18 126/69 98 Nasal Cannula 2.0 12/22/16 00:02 97.9 80 20 110/57 100 Nasal Cannula 2.0 12/22/16 00:00 80 12/21/16 20:01 98.2 80 20 109/62 100 Nasal Cannula 2.0 12/21/16 20:00 80 12/21/16 19:22 80 18 Nasal Cannula 2.0 12/21/16 19:21 Nasal Cannula 2.0 12/21/16 19:21 98 Nasal Cannula 2.0 12/21/16 16:30 97.5 80 22 112/62 98 Nasal Cannula 2.0 12/21/16 16:00 80 12/21/16 14:20 80 113/59 12/21/16 12:10 88 18 100 Nasal Cannula 2.0 12/21/16 12:00 98.2 80 21 101/54 99 Nasal Cannula 3.0 12/21/16 11:50 80 16 99 Nasal Cannula 2.0 12/21/16 11:39 80 12/21/16 09:50 80 18 106/55 99 Nasal Cannula 3.0 Intake and Output 12/21/16 12/22/16 19:00 07:00 Intake Total 340 ml 120 ml Output Total 500 ml Balance 340 ml -380 ml Intake Oral 340 ml 120 ml Output Urine Total 500 ml Laboratory Tests Test 12/21/16 18:15 12/21/16 22:21 White Blood Count 6.8 K/UL (4.8-10.8) Red Blood Count 2.56 M/UL (4.70-6.10) L Hemoglobin 7.8 G/DL (14.2-18.0) L Hematocrit 24.1 % (42.0-52.0) L Mean Corpuscular Volume 94 FL (80-99) Mean Corpuscular Hemoglobin 30.7 PG (27.0-31.0) Mean Corpuscular Hemoglobin Concent 32.5 G/DL (32.0-36.0) Red Cell Distribution Width 14.4 % (11.6-14.8) Platelet Count 150 K/UL (150-450) Mean Platelet Volume 6.1 FL (6.5-10.1) L Neutrophils (%) (Auto) % (45.0-75.0) Lymphocytes (%) (Auto) % (20.0-45.0) Monocytes (%) (Auto) % (1.0-10.0) Eosinophils (%) (Auto) % (0.0-3.0) Basophils (%) (Auto) % (0.0-2.0) Differential Total Cells Counted 100 Neutrophils % (Manual) 73 % (45-75) Lymphocytes % (Manual) 15 % (20-45) L Monocytes % (Manual) 8 % (1-10) Eosinophils % (Manual) 3 % (0-3) Basophils % (Manual) 1 % (0-2) Band Neutrophils 0 % (0-8) Platelet Estimate Adequate Platelet Morphology Normal Hypochromasia 1+ Anisocytosis 1+ Activated Partial Thromboplast Time 27 SEC (23-33) Urine Color Brown Urine Appearance Clear Urine pH 6 (4.5-8.0) Urine Specific [place] 1.015 (1.005-1.035) Urine Protein 2+ (NEGATIVE) H Urine Glucose (UA) Negative (NEGATIVE) Urine Ketones Negative (NEGATIVE) Urine Occult Blood Negative (NEGATIVE) Urine Nitrite Negative (NEGATIVE) Urine Bilirubin 1+ (NEGATIVE) H Urine Ictotest Negative Urine Urobilinogen 12 MG/DL (0.0-1.0) H Urine Leukocyte Esterase 1+ (NEGATIVE) H Urine RBC 0-2 /HPF (0 - 0) H Urine WBC 2-4 /HPF (0 - 0) Urine Squamous Epithelial Cells None /LPF (NONE/OCC) Urine Amorphous Sediment Few /LPF (NONE) H Urine Bacteria Few /HPF (NONE) Height (Feet): 6 Height (Inches): 1.00 Weight (Pounds): 209 Medications Current Medications Medications (Trade) Dose Ordered Sig/Ana Route PRN Reason Start Time Stop Time Status Last Admin Dose Admin Acetaminophen (Tylenol) 650 mg Q4H PRN ORAL T>100.5 12/21/16 06:30 01/20/17 06:29 Albuterol/ Ipratropium (DuoNeb 0.5-3(2.5)mg/3ml) 3 ml Q4H PRN HHN Shortness of Breath 12/21/16 06:30 12/26/16 06:29 12/21/16 12:18 Amiodarone HCl (Cordarone) 200 mg EVERY 12 HOURS ORAL 12/21/16 21:00 01/20/17 20:59 12/22/16 08:20 Aspirin (Ecotrin) 325 mg DAILY ORAL 12/22/16 09:00 01/21/17 08:59 12/22/16 08:20 Cephalexin (Keflex) 500 mg EVERY 8 HOURS ORAL 12/21/16 20:00 12/28/16 19:59 12/22/16 06:01 Dextrose (Dextrose 50%) STAT PRN IV Hypoglycemia 12/21/16 06:30 01/20/17 06:29 Furosemide (Lasix) 40 mg BID IV 12/22/16 09:00 01/21/17 08:59 12/22/16 08:20 Hydromorphone HCl (Dilaudid) 1.5 mg Q3H PRN IVP Severe Pain (Pain Scale 7-10) 12/21/16 11:00 12/28/16 10:59 12/22/16 06:00 Lorazepam (Ativan) 0.5 mg Q8H PRN ORAL For Anxiety 12/21/16 21:08 12/28/16 21:07 12/22/16 08:20 Multi-Ingredient Ointment (Eucerin) 1 applic DAILY TOPIC 12/22/16 12:30 01/21/17 12:29 12/21/16 14:56 Ondansetron HCl (Zofran) 4 mg Q6H PRN IVP Nausea & Vomiting 12/21/16 06:30 01/20/17 06:29 Oxycodone/ Acetaminophen (Percocet 5-325) 1 tab Q4H PRN ORAL Moderate Pain (Pain Scale 4-6) 12/21/16 07:11 12/28/16 03:29 Polyethylene Glycol (Miralax) 17 gm DAILYPRN PRN ORAL Constipation 12/21/16 06:30 01/20/17 06:29 Temazepam (Restoril) 15 mg HSPRN PRN ORAL Insomnia 12/21/16 21:00 12/28/16 20:59 Assessment/Plan Assessment/Plan (1) Chest wall pain following surgery (2) S/P Tricuspid valve replacement (3) Congestive heart failure (4) COPD (chronic obstructive pulmonary disease) (5) Lumbar DDD (6) Lumbar Spondylosis (7) Lumbar Radiculopathy Seen dictated HILTON CABRALES Dec 22, 2016 08:54
--- NOTE | 2016-12-22 10:48 | Diagnostic Imaging Report ---
Indication: DYSPNEA Technique: One view of the chest Comparison: 12/23/2016 Findings: There is increased lateral mid and lower lung pleural fluid or thickening. There is new apparent pleural-based opacity in the right upper hemithorax. There is increased pleural fluid on the left. There is increased retrocardiac consolidation. The heart remains enlarged. There is a left chest AICD again demonstrated. Mild interstitial congestive changes persists, probably stable allowing for technical differences. Prior median sternotomy Impression: Increasing bilateral pleural effusions, particularly on the right. Pleural fluid on the right may be loculated, given the nondependent distribution, although this would be unusual given the rapid development. Cardiomegaly
[2016-12-22 10:56] LABS: MEAN CORPUSCULAR HGB CONC 31.8 G/DL (32.0-36.0); MEAN CORPUSCULAR VOLUME 94 FL (80-99); MEAN PLATELET VOLUME 6.3 FL (6.5-10.1); PLATELET COUNT 153 K/UL (150-450); RED BLOOD COUNT 2.69 M/UL (4.70-6.10); RED CELL DISTRIBUTION WIDTH 14.2 % (11.6-14.8); WHITE BLOOD COUNT 6.3 K/UL (4.8-10.8)
[2016-12-22 11:01] LABS: INR 1.2 (0.9-1.1); PROTHROMBIN TIME 12.3 SEC (9.30-11.50)
[2016-12-22 11:19] LABS: ANION GAP 8 (5-15); CARBON DIOXIDE 31 mEQ/L (20-30); CHLORIDE 97 mEQ/L (98-107); CREATININE 1.3 mg/dL (0.7-1.2); GLOMERULAR FILTRATION RATE > 60 mL/min (>60); HEMOLYSIS 6; PHOSPHORUS 3.7 mg/dL (2.5-4.8); POTASSIUM 3.8 mEQ/L (3.4-4.9); SODIUM 136 mEQ/L (135-145)
[2016-12-22 11:20] LABS: ANISOCYTOSIS 1+; BAND NEUTROPHILS % (MANUAL) 0 % (0-8); BASOPHILS % (MANUAL) 0 % (0-2); EOSINOPHILS % (MANUAL) 6 % (0-3); HYPOCHROMASIA 1+; LYMPHOCYTES % (MANUAL) 13 % (20-45); NEUTROPHILS % (MANUAL) 71 % (45-75); PLATELET ESTIMATE ADEQUATE; PLATELET MORPHOLOGY NORMAL; TOTAL CELLS COUNTED 100
[2016-12-22 11:39] LABS: PATH BLOOD SMEAR/OMC SENT TO PATHOLOGIST
[2016-12-22 11:40] LABS: RETICULOCYTE COUNT 0.8 % (0.0-2.0)
[2016-12-22 11:59] LABS: TROPONIN I < 0.30 ng/mL (<=0.30)
[2016-12-22 12:00] VITALS: BP 108/64
[2016-12-22 12:29] LABS: ERYTHROCYTE SEDIMENTATION RATE 90 MM/HR (0-20)
--- NOTE | 2016-12-22 13:53 | Pulmonology Progress Note ---
Assessment/Plan Assessment/Plan ASSESSMENT Congestive heart failure. Possible apical left ventricular thrombus. Factor V Leiden deficiency, off anticoagulation due to removal of atrial leads on the 12/15/2016. Recent tricuspid annuloplasty repair Chest wall pain/postop pain Tamponade , status post pericardial window. AICD , redone recently. Pleural effusion bilateral, R>L Ischemic cardiomyopathy. moderate pulmonary HTN valvular heart disease: moderate AR, moderate TR, mdoerate MR History of cerebrovascular accident. History of inferior vena cava filter placement. Acute anemia Renal insufficiency history. Eliquis intolerance PLAN OF CARE tele O2 HHN prn fup CXR Increasing bilateral pleural effusions, particularly on the right. Pleural fluid on the right may be loculated, given the nondependent distribution, although this would be unusual given the rapid development fup with CXR in am serial troponin negative, ECG no acute changes, therefore patient was ruled out for acute UT chest pain is a chest wall pain,reproducible on palpation due to recent open heart surgery cardio follows ECHO this admission with EF 40-45% and RVSP of 52 c/w moderate pulmonary HTN, moderate AR, MR, TR and possible left apical thrombus diuretic monitor renal parameters, I/O, e/lytes Lasix dose decreased this am by cardio patient needs a/coagulation HH with small trend up intolerant to Eliquis probably should be started on low dose of Heparin gtt would recommend to consider heme eval for recommendation for a/coagulation in hospital and on discharge continue ASA, Amiodarone, abx GI prophylaxis pain management bowel regimen case discussed and evaluated by supervising physician . Subjective Allergies: Coded Allergies: DABIGATRAN ETEXILATE (Unverified Allergy, Unknown, 12/21/16) KETOROLAC (Verified Allergy, Unknown, 11/17/11) KETOROLAC TROMETHAMINE (Unverified Allergy, Unknown, 02/05/16) UNK MORPHINE (Verified Allergy, Unknown, 11/17/11) Subjective reports occasional chest wall pain s/p recent open heart surgery denies SOB, on RA pulse oximetry stable Objective Last 24 Hour Vital Signs Date Time Temp Pulse Resp B/P Pulse Ox O2 Delivery O2 Flow Rate FiO2 12/22/16 12:00 98.2 81 21 108/64 97 Nasal Cannula 2.0 12/22/16 08:00 98.2 80 21 115/66 98 Nasal Cannula 2.0 12/22/16 07:58 Nasal Cannula 2.0 12/22/16 07:58 98 Nasal Cannula 2.0 12/22/16 07:57 80 16 Nasal Cannula 2.0 12/22/16 04:00 80 12/22/16 04:00 97.9 80 18 126/69 98 Nasal Cannula 2.0 12/22/16 00:02 97.9 80 20 110/57 100 Nasal Cannula 2.0 12/22/16 00:00 80 12/21/16 20:01 98.2 80 20 109/62 100 Nasal Cannula 2.0 12/21/16 20:00 80 12/21/16 19:22 80 18 Nasal Cannula 2.0 12/21/16 19:21 Nasal Cannula 2.0 12/21/16 19:21 98 Nasal Cannula 2.0 12/21/16 16:30 97.5 80 22 112/62 98 Nasal Cannula 2.0 12/21/16 16:00 80 12/21/16 14:20 80 113/59 Intake and Output 12/21/16 12/22/16 19:00 07:00 Intake Total 340 ml 120 ml Output Total 500 ml Balance 340 ml -380 ml Intake Oral 340 ml 120 ml Output Urine Total 500 ml General Appearance: WD/WN, no acute distress HEENT: normocephalic, atraumatic, anicteric, mucous membranes moist, PERRL Respiratory/Chest: chest wall non-tender, lungs clear, no respiratory distress , other - sternal scar healed well , left chest surgical incision with steri strips, intact, tenderness on palaption around surgical site, mild edema Cardiovascular: normal rate, regular rhythm, no JVD, edema - +1 BLE Abdomen: normal bowel sounds, soft, non tender, non distended Extremities: other - trace to + 1 edema BLE Neurologic/Psychiatric: no motor/sensory deficits, alert, oriented x 3, responsive Lymphatic: no neck adenopathy Musculoskeletal: normal muscle bulk Laboratory Tests 12/21/16 18:15: White Blood Count 6.8, Red Blood Count 2.56L, Hemoglobin 7.8L, Hematocrit 24.1L , Mean Corpuscular Volume 94, Mean Corpuscular Hemoglobin 30.7, Mean Corpuscular Hemoglobin Concent 32.5, Red Cell Distribution Width 14.4, Platelet Count 150, Mean Platelet Volume 6.1L, Neutrophils (%) (Auto) , Lymphocytes (%) ( Auto) , Monocytes (%) (Auto) , Eosinophils (%) (Auto) , Basophils (%) (Auto) , Differential Total Cells Counted 100, Neutrophils % (Manual) 73, Lymphocytes % ( Manual) 15L, Monocytes % (Manual) 8, Eosinophils % (Manual) 3, Basophils % ( Manual) 1, Band Neutrophils 0, Platelet Estimate Adequate, Platelet Morphology Normal, Hypochromasia 1+, Anisocytosis 1+, Activated Partial Thromboplast Time 27 12/21/16 22:21: Urine Color Brown, Urine Appearance Clear, Urine pH 6, Urine Specific [place] 1.015, Urine Protein 2+H, Urine Glucose (UA) Negative, Urine Ketones Negative, Urine Occult Blood Negative, Urine Nitrite Negative, Urine Bilirubin 1+H, Urine Ictotest Negative, Urine Urobilinogen 12H, Urine Leukocyte Esterase 1+H, Urine RBC 0-2H, Urine WBC 2-4, Urine Squamous Epithelial Cells None, Urine Amorphous Sediment FewH, Urine Bacteria Few 12/22/16 10:30: White Blood Count 6.3, Red Blood Count 2.69L, Hemoglobin 8.1L, Hematocrit 25.4L , Mean Corpuscular Volume 94, Mean Corpuscular Hemoglobin 30.0, Mean Corpuscular Hemoglobin Concent 31.8L, Red Cell Distribution Width 14.2, Platelet Count 153, Mean Platelet Volume 6.3L, Neutrophils (%) (Auto) , Lymphocytes (%) (Auto) , Monocytes (%) (Auto) , Eosinophils (%) (Auto) , Basophils (%) (Auto) , Differential Total Cells Counted 100, Neutrophils % ( Manual) 71, Lymphocytes % (Manual) 13L, Monocytes % (Manual) 10, Eosinophils % ( Manual) 6H, Basophils % (Manual) 0, Band Neutrophils 0, Platelet Estimate Adequate, Platelet Morphology Normal, Hypochromasia 1+, Anisocytosis 1+, Activated Partial Thromboplast Time 26, Erythrocyte Sedimentation Rate 90H, Reticulocyte Count 0.8, Prothrombin Time 12.3H, Prothromb Time International Ratio 1.2H, Sodium Level 136, Potassium Level 3.8, Chloride Level 97L, Carbon Dioxide Level 31H, Anion Gap 8, Blood Urea Nitrogen 14, Creatinine 1.3H, Estimat Glomerular Filtration Rate > 60, Glucose Level 91, Calcium Level 9.0, Phosphorus Level 3.7, Iron Level 45L, Total Iron Binding Capacity 238L, Percent Iron Saturation 19, Unsaturated Iron Binding 193, Lactate Dehydrogenase 265H, Troponin I < 0.30, Albumin 3.2L, Carcinoembryonic Antigen 5.3H, Vitamin B12 Level 514, Folate [Pending] Current Medications Medications (Trade) Dose Ordered Sig/Ana Route PRN Reason Start Time Stop Time Status Last Admin Dose Admin Acetaminophen (Tylenol) 650 mg Q4H PRN ORAL T>100.5 12/21/16 06:30 01/20/17 06:29 Albuterol/ Ipratropium (DuoNeb 0.5-3(2.5)mg/3ml) 3 ml Q4H PRN HHN Shortness of Breath 12/21/16 06:30 12/26/16 06:29 12/21/16 12:18 Amiodarone HCl (Cordarone) 200 mg EVERY 12 HOURS ORAL 12/21/16 21:00 01/20/17 20:59 12/22/16 08:20 Aspirin (Ecotrin) 325 mg DAILY ORAL 12/22/16 09:00 01/21/17 08:59 12/22/16 08:20 Cephalexin (Keflex) 500 mg EVERY 8 HOURS ORAL 12/21/16 20:00 12/28/16 19:59 12/22/16 06:01 Dextrose (Dextrose 50%) STAT PRN IV Hypoglycemia 12/21/16 06:30 01/20/17 06:29 Furosemide (Lasix) 40 mg BID IV 12/22/16 09:00 01/21/17 08:59 12/22/16 08:20 Hydromorphone HCl (Dilaudid) 1.5 mg Q3H PRN IVP Severe Pain (Pain Scale 7-10) 12/21/16 11:00 12/28/16 10:59 12/22/16 12:20 Lorazepam (Ativan) 0.5 mg Q8H PRN ORAL For Anxiety 12/21/16 21:08 12/28/16 21:07 12/22/16 08:20 Multi-Ingredient Ointment (Eucerin) 1 applic DAILY TOPIC 12/22/16 12:30 01/21/17 12:29 12/21/16 14:56 Ondansetron HCl (Zofran) 4 mg Q6H PRN IVP Nausea & Vomiting 12/21/16 06:30 01/20/17 06:29 Oxycodone/ Acetaminophen (Percocet 5-325) 1 tab Q4H PRN ORAL Moderate Pain (Pain Scale 4-6) 12/21/16 07:11 12/28/16 03:29 Pantoprazole (Protonix) 40 mg DAILY ORAL 12/22/16 14:00 01/21/17 13:59 Polyethylene Glycol (Miralax) 17 gm DAILYPRN PRN ORAL Constipation 12/21/16 06:30 01/20/17 06:29 Temazepam (Restoril) 15 mg HSPRN PRN ORAL Insomnia 12/21/16 21:00 12/28/16 20:59 Greg ([facility])Katerine NP Dec 22, 2016 13:53
[2016-12-22] MEDS ORDERED: Lidocaine 1% Plain 30 ml INJ SCH (15:15)
[2016-12-22] MEDS ORDERED: Heparin 2000 units/Ns 1000ml INJ SCH (15:15)
--- NOTE | 2016-12-22 15:57 | Internal Med Progress Note ---
Subjective Physician Name Claudio Michel Attending Physician Claudio Michel MD Current Medications Medications (Trade) Dose Ordered Sig/Ana Route PRN Reason Start Time Stop Time Status Last Admin Dose Admin Acetaminophen (Tylenol) 650 mg Q4H PRN ORAL T>100.5 12/21/16 06:30 01/20/17 06:29 Albuterol/ Ipratropium (DuoNeb 0.5-3(2.5)mg/3ml) 3 ml Q4H PRN HHN Shortness of Breath 12/21/16 06:30 12/26/16 06:29 12/21/16 12:18 Amiodarone HCl (Cordarone) 200 mg EVERY 12 HOURS ORAL 12/21/16 21:00 01/20/17 20:59 12/22/16 08:20 Aspirin (Ecotrin) 325 mg DAILY ORAL 12/22/16 09:00 01/21/17 08:59 12/22/16 08:20 Cephalexin (Keflex) 500 mg EVERY 8 HOURS ORAL 12/21/16 20:00 12/28/16 19:59 12/22/16 13:55 Chlorhexidine Gluconate (Tara-Hex 2%) 1 applic DAILY TOPIC 12/23/16 09:00 01/22/17 08:59 Dextrose (Dextrose 50%) STAT PRN IV Hypoglycemia 12/21/16 06:30 01/20/17 06:29 Furosemide (Lasix) 40 mg BID IV 12/22/16 09:00 01/21/17 08:59 12/22/16 08:20 Heparin Sodium/ Sodium Chloride (Heparin 2000 units/Ns 1000ml premix) 2,000 unit ONCE INJ 12/22/16 15:15 12/23/16 23:59 Hydromorphone HCl (Dilaudid) 1.5 mg Q3H PRN IVP Severe Pain (Pain Scale 7-10) 12/21/16 11:00 12/28/16 10:59 12/22/16 15:27 Lidocaine HCl (Xylocaine 1% 30ml) 30 ml ONCE INJ 12/22/16 15:15 12/23/16 23:59 Lorazepam (Ativan) 0.5 mg Q8H PRN ORAL For Anxiety 12/21/16 21:08 12/28/16 21:07 12/22/16 08:20 Multi-Ingredient Ointment (Eucerin) 1 applic DAILY TOPIC 12/22/16 12:30 01/21/17 12:29 12/21/16 14:56 Ondansetron HCl (Zofran) 4 mg Q6H PRN IVP Nausea & Vomiting 12/21/16 06:30 01/20/17 06:29 Oxycodone/ Acetaminophen (Percocet 5-325) 1 tab Q4H PRN ORAL Moderate Pain (Pain Scale 4-6) 12/21/16 07:11 12/28/16 03:29 Pantoprazole (Protonix) 40 mg DAILY ORAL 12/22/16 14:00 01/21/17 13:59 12/22/16 13:55 Polyethylene Glycol (Miralax) 17 gm DAILYPRN PRN ORAL Constipation 12/21/16 06:30 01/20/17 06:29 Temazepam (Restoril) 15 mg HSPRN PRN ORAL Insomnia 12/21/16 21:00 12/28/16 20:59 Allergies: Coded Allergies: DABIGATRAN ETEXILATE (Unverified Allergy, Unknown, 12/21/16) KETOROLAC (Verified Allergy, Unknown, 11/17/11) KETOROLAC TROMETHAMINE (Unverified Allergy, Unknown, 02/05/16) UNK MORPHINE (Verified Allergy, Unknown, 11/17/11) Subjective awake, alert, responsive, NAD, No CP or SOB Objective Last Vital Signs Date Time Temp Pulse Resp B/P Pulse Ox O2 Delivery O2 Flow Rate FiO2 12/22/16 12:00 98.2 81 21 108/64 97 Nasal Cannula 2.0 12/22/16 07:58 28 Laboratory Tests Test 12/21/16 18:15 12/21/16 22:21 12/22/16 10:30 White Blood Count 6.8 K/UL (4.8-10.8) 6.3 K/UL (4.8-10.8) Red Blood Count 2.56 M/UL (4.70-6.10) L 2.69 M/UL (4.70-6.10) L Hemoglobin 7.8 G/DL (14.2-18.0) L 8.1 G/DL (14.2-18.0) L Hematocrit 24.1 % (42.0-52.0) L 25.4 % (42.0-52.0) L Mean Corpuscular Volume 94 FL (80-99) 94 FL (80-99) Mean Corpuscular Hemoglobin 30.7 PG (27.0-31.0) 30.0 PG (27.0-31.0) Mean Corpuscular Hemoglobin Concent 32.5 G/DL (32.0-36.0) 31.8 G/DL (32.0-36.0) L Red Cell Distribution Width 14.4 % (11.6-14.8) 14.2 % (11.6-14.8) Platelet Count 150 K/UL (150-450) 153 K/UL (150-450) Mean Platelet Volume 6.1 FL (6.5-10.1) L 6.3 FL (6.5-10.1) L Neutrophils (%) (Auto) % (45.0-75.0) % (45.0-75.0) Lymphocytes (%) (Auto) % (20.0-45.0) % (20.0-45.0) Monocytes (%) (Auto) % (1.0-10.0) % (1.0-10.0) Eosinophils (%) (Auto) % (0.0-3.0) % (0.0-3.0) Basophils (%) (Auto) % (0.0-2.0) % (0.0-2.0) Differential Total Cells Counted 100 100 Neutrophils % (Manual) 73 % (45-75) 71 % (45-75) Lymphocytes % (Manual) 15 % (20-45) L 13 % (20-45) L Monocytes % (Manual) 8 % (1-10) 10 % (1-10) Eosinophils % (Manual) 3 % (0-3) 6 % (0-3) H Basophils % (Manual) 1 % (0-2) 0 % (0-2) Band Neutrophils 0 % (0-8) 0 % (0-8) Platelet Estimate Adequate Adequate Platelet Morphology Normal Normal Hypochromasia 1+ 1+ Anisocytosis 1+ 1+ Activated Partial Thromboplast Time 27 SEC (23-33) 26 SEC (23-33) Urine Color Brown Urine Appearance Clear Urine pH 6 (4.5-8.0) Urine Specific [place] 1.015 (1.005-1.035) Urine Protein 2+ (NEGATIVE) H Urine Glucose (UA) Negative (NEGATIVE) Urine Ketones Negative (NEGATIVE) Urine Occult Blood Negative (NEGATIVE) Urine Nitrite Negative (NEGATIVE) Urine Bilirubin 1+ (NEGATIVE) H Urine Ictotest Negative Urine Urobilinogen 12 MG/DL (0.0-1.0) H Urine Leukocyte Esterase 1+ (NEGATIVE) H Urine RBC 0-2 /HPF (0 - 0) H Urine WBC 2-4 /HPF (0 - 0) Urine Squamous Epithelial Cells None /LPF (NONE/OCC) Urine Amorphous Sediment Few /LPF (NONE) H Urine Bacteria Few /HPF (NONE) Erythrocyte Sedimentation Rate 90 MM/HR (0-20) H Reticulocyte Count 0.8 % (0.0-2.0) Prothrombin Time 12.3 SEC (9.30-11.50) H Prothromb Time International Ratio 1.2 (0.9-1.1) H Sodium Level 136 mEQ/L (135-145) Potassium Level 3.8 mEQ/L (3.4-4.9) Chloride Level 97 mEQ/L (98-107) L Carbon Dioxide Level 31 mEQ/L (20-30) H Anion Gap 8 (5-15) Blood Urea Nitrogen 14 mg/dL (7-23) Creatinine 1.3 mg/dL (0.7-1.2) H Estimat Glomerular Filtration Rate > 60 mL/min (>60) Glucose Level 91 mg/dL (74-106) Calcium Level 9.0 mg/dL (8.6-10.2) Phosphorus Level 3.7 mg/dL (2.5-4.8) Iron Level 45 ug/dL (59-158) L Total Iron Binding Capacity 238 ug/dL (250-400) L Percent Iron Saturation 19 % (15-50) Unsaturated Iron Binding 193 ug/dL (112-346) Lactate Dehydrogenase 265 U/L (135-230) H Troponin I < 0.30 ng/mL (<=0.30) Albumin 3.2 g/dL (3.5-5.2) L Carcinoembryonic Antigen 5.3 ng/mL H Vitamin B12 Level 514 pg/mL (211-946) Folate Pending Intake and Output 12/21/16 12/22/16 19:00 07:00 Intake Total 340 ml 120 ml Output Total 500 ml Balance 340 ml -380 ml Intake Oral 340 ml 120 ml Output Urine Total 500 ml Objective General: No acute distress, awake and alert HEENT: NCAT, sclera anicteric, PERRL, EOMI. Neck: Supple, no significant jugular venous distention, Left IJ cath. Lungs: Good inspiratory effort, no accessory muscle use, clear to auscultation bilaterally, no Wheeze or Rales. Heart: Regular rate and rhythm, normal S1/S2, no murmurs, Left ICD with steri strips. Abdomen: soft, nontender, nondistended. Normoactive bowel sounds. / Rectal: Refused and deferred. Extremities: No Cyanosis , clubbing or edema. Bilateral LE's THUY bandage Neuro: A&O x 3, Able to move all extremities Skin: warm, no rashes or lesions Psych: Normal mood and affect Assessment/Plan Assessment/Plan 1. Congestive heart failure. 2. Questionable apical left ventricular thrombus / LV thrombus 3. Factor V Leiden deficiency, off anticoagulation due to removal of atrial leads on the 12/15/2016. 4. Recent tricuspid annuloplasty repair with a 30 Chadwick-Castanon pericardial valve. 5. Tamponade status post pericardial window. 6. Permanent pacemaker implantable cardioversion defibrillator implantation with atrial leads, redo recently. 7. Pleural effusion status post thoracentesis possibly. 8. Ischemic cardiomyopathy. 9. History of cerebrovascular accident. 10. History of inferior vena cava filter placement. 11. Renal insufficiency history. 12. Anemia with acute drop in h/h 13. Eliquis intolerance Plan: monitor labs stool for OOB Start Heparin Drip and Coumadin PT Mobility Full code F/U with cardiology recommendations Claudio Michel MD Dec 22, 2016 15:57
[2016-12-22 16:00] VITALS: BP 122/61
[2016-12-22] MEDS ORDERED: Heparin 25,000u/D5W 500ml (VTE/AF) IV SCH (16:30)
[2016-12-22] MEDS ORDERED: NS Irrig 1000ml ONE (16:58)
--- NOTE | 2016-12-22 17:30 | Wound Care Consultation ---
Wound Assessment Wound Assessment : Wound Number: #1 Wound Present on Admission: Yes New Wound: No Status Change of Wound: No Wound Location Body Site Modif: left, right, lower Wound Location Body Site: leg Wound Type: other - dry skin Elyssa Test: Does not Elyssa Wound Drainage Amount: None Wound Drainage Odor: None/Absent Tissue Surrounding Wound: Intact Wound Comment #1 Left and right lower leg dry skin noted Recommendation -Keep clean and dry -Apply A&D oint daily for moisturizer -Optimize nutrition -Assess and f/u with MD for any changes MARK VASQUEZ RN Dec 22, 2016 17:30
[2016-12-22] MEDS: Vitamin A&D Oint 2oz Tube TOPIC SCH (21:34)
[2016-12-22] MEDS ORDERED: Enoxaparin 100mg Inj SUBQ SCH (23:30)
[2016-12-23 04:00] VITALS: BP 114/67
[2016-12-23] MEDS: Cephalexin 500mg cap ORAL SCH ×3 (06:06→20:44)
[2016-12-23 07:28] LABS: BASOPHILS % (AUTO) 1.3 % (0.0-2.0); EOSINOPHILS % (AUTO) 5.4 % (0.0-3.0); LYMPHOCYTES % (AUTO) 14.6 % (20.0-45.0); MEAN CORPUSCULAR HGB CONC 32.4 G/DL (32.0-36.0); MEAN CORPUSCULAR VOLUME 95 FL (80-99); MEAN PLATELET VOLUME 7.3 FL (6.5-10.1); MONOCYTES % (AUTO) 7.2 % (1.0-10.0); NEUTROPHILS % (AUTO) 71.4 % (45.0-75.0); PLATELET COUNT 153 K/UL (150-450); RED BLOOD COUNT 2.66 M/UL (4.70-6.10); RED CELL DISTRIBUTION WIDTH 14.8 % (11.6-14.8); WHITE BLOOD COUNT 7.1 K/UL (4.8-10.8)
[2016-12-23 07:46] LABS: INR 1.2 (0.9-1.1); PROTHROMBIN TIME 12.7 SEC (9.30-11.50)
[2016-12-23 08:00] VITALS: BP 115/67
[2016-12-23] MEDS: Dyna-Hex 2% Top Sol 8oz TOPIC SCH (08:06)
[2016-12-23] MEDS: LORazepam 0.5mg tab ORAL PRN (08:11)
[2016-12-23] MEDS: Furosemide 40mg tab ORAL SCH ×2 (08:11→20:45)
[2016-12-23] MEDS: Aspirin EC 325mg tab ORAL SCH (08:11)
[2016-12-23] MEDS: Eucerin Cream 15gm TOPIC SCH (08:12)
[2016-12-23] MEDS: Vitamin A&D Oint 2oz Tube TOPIC SCH ×2 (08:12→20:46)
[2016-12-23] MEDS: Amiodarone 200mg tab ORAL SCH ×2 (08:12→20:45)
[2016-12-23 08:22] LABS: IRON 39 ug/dL (59-158)
[2016-12-23 08:23] LABS: HEMOLYSIS 8; TOTAL IRON BINDING CAPACITY 238 ug/dL (250-400)
[2016-12-23 08:28] LABS: ANION GAP 14 (5-15); CALCIUM 9.1 mg/dL (8.6-10.2); CARBON DIOXIDE 27 mEQ/L (20-30); CHLORIDE 98 mEQ/L (98-107); CREATININE 1.4 mg/dL (0.7-1.2); GLOMERULAR FILTRATION RATE > 60 mL/min (>60); HEMOLYSIS 11; MAGNESIUM 1.6 mg/dL (1.7-2.5); POTASSIUM 4.1 mEQ/L (3.4-4.9); SODIUM 139 mEQ/L (135-145)
[2016-12-23 08:30] LABS: TROPONIN I < 0.30 ng/mL (<=0.30)
--- NOTE | 2016-12-23 09:24 | Cardiology Progress Note ---
Assessment/Plan Assessment/Plan 1. Congestive heart failure. 2. Questionable apical left ventricular thrombus. 3. Factor V Leiden deficiency, off anticoagulation due to removal of atrial leads on the 12/15/2016. 4. Recent tricuspid annuloplasty repair with a 30 Chadwick-Castanon pericardial valve. 5. Tamponade status post pericardial window. 6. Permanent pacemaker implantable cardioversion defibrillator implantation with atrial leads removal and redo 12/14 7. Pleural effusion status post thoracentesis possibly. 8. Ischemic cardiomyopathy. 9. History of cerebrovascular accident. 10. History of inferior vena cava filter placement. 11. Renal insufficiency history. 12. anemia with acute drop in h/h 13. ? LV thrombus 14. Eliquis intolerance heparin never started as hgb dropped btu was started on lmwh full dose when repeat hgb showed stable today is 8 day post atrial lead removal should probably be ok will decrease lovenox to 90mg await stool sample labs ntoed no iv access seem better to me will decrease lasix Subjective Cardiovascular: Denies: chest pain Respiratory: Reports: shortness of breath Gastrointestinal/Abdominal: Denies: abdominal pain Genitourinary: Denies: burning Objective Last 24 Hour Vital Signs Date Time Temp Pulse Resp B/P Pulse Ox O2 Delivery O2 Flow Rate FiO2 12/23/16 08:00 97.8 81 20 115/67 97 Nasal Cannula 3.0 12/23/16 07:25 98 Nasal Cannula 2.0 28 12/23/16 07:25 Nasal Cannula 2.0 28 12/23/16 07:24 80 16 Nasal Cannula 2.0 28 12/23/16 04:00 80 12/23/16 04:00 98.1 80 19 114/67 99 Room Air 12/23/16 00:00 80 12/22/16 20:00 80 12/22/16 19:11 82 17 Nasal Cannula 2.0 28 12/22/16 19:11 99 Nasal Cannula 2.0 28 12/22/16 19:11 Nasal Cannula 2.0 28 12/22/16 16:00 80 12/22/16 16:00 97.2 83 20 122/61 97 Nasal Cannula 2.0 12/22/16 12:00 98.2 81 21 108/64 97 Nasal Cannula 2.0 12/22/16 12:00 80 General Appearance: no apparent distress, alert Neck: supple Cardiovascular: normal rate, regular rhythm Respiratory/Chest: crackles/rales - right base Abdomen: normal bowel sounds, non tender, soft Extremities: other - dressed Intake and Output 12/22/16 12/23/16 19:00 07:00 Output Total 600 ml Balance -600 ml Output Urine Total 600 ml # Voids 2 2 Laboratory Tests Test 12/22/16 10:30 12/22/16 19:00 12/23/16 07:00 White Blood Count 6.3 K/UL (4.8-10.8) 7.1 K/UL (4.8-10.8) Red Blood Count 2.69 M/UL (4.70-6.10) L 2.66 M/UL (4.70-6.10) L Hemoglobin 8.1 G/DL (14.2-18.0) L 8.2 G/DL (14.2-18.0) L Hematocrit 25.4 % (42.0-52.0) L 25.4 % (42.0-52.0) L Mean Corpuscular Volume 94 FL (80-99) 95 FL (80-99) Mean Corpuscular Hemoglobin 30.0 PG (27.0-31.0) 31.0 PG (27.0-31.0) Mean Corpuscular Hemoglobin Concent 31.8 G/DL (32.0-36.0) L 32.4 G/DL (32.0-36.0) Red Cell Distribution Width 14.2 % (11.6-14.8) 14.8 % (11.6-14.8) Platelet Count 153 K/UL (150-450) 153 K/UL (150-450) Mean Platelet Volume 6.3 FL (6.5-10.1) L 7.3 FL (6.5-10.1) Neutrophils (%) (Auto) % (45.0-75.0) 71.4 % (45.0-75.0) Lymphocytes (%) (Auto) % (20.0-45.0) 14.6 % (20.0-45.0) L Monocytes (%) (Auto) % (1.0-10.0) 7.2 % (1.0-10.0) Eosinophils (%) (Auto) % (0.0-3.0) 5.4 % (0.0-3.0) H Basophils (%) (Auto) % (0.0-2.0) 1.3 % (0.0-2.0) Differential Total Cells Counted 100 Neutrophils % (Manual) 71 % (45-75) Lymphocytes % (Manual) 13 % (20-45) L Monocytes % (Manual) 10 % (1-10) Eosinophils % (Manual) 6 % (0-3) H Basophils % (Manual) 0 % (0-2) Band Neutrophils 0 % (0-8) Platelet Estimate Adequate Platelet Morphology Normal Hypochromasia 1+ Anisocytosis 1+ Erythrocyte Sedimentation Rate 90 MM/HR (0-20) H Reticulocyte Count 0.8 % (0.0-2.0) Prothrombin Time 12.3 SEC (9.30-11.50) H 12.7 SEC (9.30-11.50) H Prothromb Time International Ratio 1.2 (0.9-1.1) H 1.2 (0.9-1.1) H Activated Partial Thromboplast Time 26 SEC (23-33) Sodium Level 136 mEQ/L (135-145) 139 mEQ/L (135-145) Potassium Level 3.8 mEQ/L (3.4-4.9) 4.1 mEQ/L (3.4-4.9) Chloride Level 97 mEQ/L (98-107) L 98 mEQ/L (98-107) Carbon Dioxide Level 31 mEQ/L (20-30) H 27 mEQ/L (20-30) Anion Gap 8 (5-15) 14 (5-15) Blood Urea Nitrogen 14 mg/dL (7-23) 15 mg/dL (7-23) Creatinine 1.3 mg/dL (0.7-1.2) H 1.4 mg/dL (0.7-1.2) H Estimat Glomerular Filtration Rate > 60 mL/min (>60) > 60 mL/min (>60) Glucose Level 91 mg/dL (74-106) 98 mg/dL (74-106) Calcium Level 9.0 mg/dL (8.6-10.2) 9.1 mg/dL (8.6-10.2) Phosphorus Level 3.7 mg/dL (2.5-4.8) Iron Level 45 ug/dL (59-158) L 39 ug/dL (59-158) L Total Iron Binding Capacity 238 ug/dL (250-400) L 238 ug/dL (250-400) L Percent Iron Saturation 19 % (15-50) 16 % (15-50) Unsaturated Iron Binding 193 ug/dL (112-346) 199 ug/dL (112-346) Lactate Dehydrogenase 265 U/L (135-230) H Troponin I < 0.30 ng/mL (<=0.30) < 0.30 ng/mL (<=0.30) Albumin 3.2 g/dL (3.5-5.2) L Carcinoembryonic Antigen 5.3 ng/mL H 5.4 ng/mL H Vitamin B12 Level 514 pg/mL (211-946) 562 pg/mL (211-946) Folate Pending Stool Occult Blood Pending Magnesium Level 1.6 mg/dL (1.7-2.5) L Pro-B-Type Natriuretic Peptide 3941 pg/mL (0-125) H Microbiology Date/Time Source Procedure Growth Status 12/21/16 10:15 Nasal Nares MRSA Culture - Final NO METHICILLIN RESISTANT STAPH AUREUS... Complete 12/21/16 10:15 Rectum VRE Culture - Final NO VANCOMYCIN RESISTANT ENTEROCOCCUS ... Complete [place] ALVAREZ Dec 23, 2016 09:24
[2016-12-23] MEDS: Enoxaparin 100mg Inj SUBQ SCH ×2 (10:43→23:30)
--- NOTE | 2016-12-23 11:17 | Pulmonology Progress Note ---
Assessment/Plan Assessment/Plan ASSESSMENT Congestive heart failure. Possible apical left ventricular thrombus. Factor V Leiden deficiency, off anticoagulation due to removal of atrial leads on the 12/15/2016. Recent tricuspid annuloplasty repair Chest wall pain/postop pain Tamponade , status post pericardial window. AICD , redone recently. Pleural effusion bilateral, R>L Ischemic cardiomyopathy. moderate pulmonary HTN valvular heart disease: moderate AR, moderate TR, mdoerate MR History of cerebrovascular accident. History of inferior vena cava filter placement. Acute anemia Renal insufficiency history. Eliquis intolerance hypo Mg PLAN OF CARE tele O2 HHN prn fup CXR Increasing bilateral pleural effusions, particularly on the right. Pleural fluid on the right may be loculated, given the nondependent distribution, although this would be unusual given the rapid development fup with CXR serial troponin negative, ECG no acute changes, therefore patient was ruled out for acute [place] chest pain is a chest wall pain,reproducible on palpation due to recent open heart surgery cardio follows ECHO this admission with EF 40-45% and RVSP of 52 c/w moderate pulmonary HTN, moderate AR, MR, TR and possible left apical thrombus diuretic monitor renal parameters, I/O, e/lytes Lasix dose decreased by cardio patient started on a/coagulation with Lovenox and Coumadin to bridge to therapeutic INR HH at baseline, anemia workup with low iron and low TIBC intolerant to Eliquis continue ASA, Amiodarone, abx GI prophylaxis pain management bowel regimen case discussed and evaluated by supervising physician . Subjective Allergies: Coded Allergies: DABIGATRAN ETEXILATE (Unverified Allergy, Unknown, 12/21/16) KETOROLAC (Verified Allergy, Unknown, 11/17/11) KETOROLAC TROMETHAMINE (Unverified Allergy, Unknown, 02/05/16) UNK MORPHINE (Verified Allergy, Unknown, 11/17/11) Subjective reports occasional chest wall pain s/p recent open heart surgery denies SOB, on O2 via NC pulse oximetry stable started on Lovenox Mg low Objective Last 24 Hour Vital Signs Date Time Temp Pulse Resp B/P Pulse Ox O2 Delivery O2 Flow Rate FiO2 12/23/16 08:00 97.8 81 20 115/67 97 Nasal Cannula 3.0 12/23/16 08:00 80 12/23/16 07:25 98 Nasal Cannula 2.0 28 12/23/16 07:25 Nasal Cannula 2.0 28 12/23/16 07:24 80 16 Nasal Cannula 2.0 28 12/23/16 04:00 80 12/23/16 04:00 98.1 80 19 114/67 99 Room Air 12/23/16 00:00 80 12/22/16 20:00 80 12/22/16 19:11 82 17 Nasal Cannula 2.0 28 12/22/16 19:11 99 Nasal Cannula 2.0 28 12/22/16 19:11 Nasal Cannula 2.0 28 12/22/16 16:00 80 12/22/16 16:00 97.2 83 20 122/61 97 Nasal Cannula 2.0 12/22/16 12:00 98.2 81 21 108/64 97 Nasal Cannula 2.0 12/22/16 12:00 80 Intake and Output 12/22/16 12/23/16 19:00 07:00 Output Total 600 ml Balance -600 ml Output Urine Total 600 ml # Voids 2 2 Objective General Appearance: WD/WN, no acute distress HEENT: normocephalic, atraumatic, anicteric, mucous membranes moist, PERRL Respiratory/Chest: chest wall non-tender, lungs clear, no respiratory distress , old sternal scar healed well ,elft upper chest surgical site with steri strips, intact, tenderness on palpation around it, mild edema, no erythema Cardiovascular: normal rate, V pacing on tele, no JVD, edema - +1 BLE Abdomen: normal bowel sounds, soft, non tender, non distended Extremities: other - trace to + 1 edema BLE Neurologic/Psychiatric: no motor/sensory deficits, alert, oriented x 3, responsive Lymphatic: no neck adenopathy Musculoskeletal: normal muscle bulk Microbiology Date/Time Source Procedure Growth Status 12/21/16 10:15 Nasal Nares MRSA Culture - Final NO METHICILLIN RESISTANT STAPH AUREUS... Complete 12/21/16 10:15 Rectum VRE Culture - Final NO VANCOMYCIN RESISTANT ENTEROCOCCUS ... Complete Laboratory Tests 12/22/16 19:00: Stool Occult Blood [Pending] 12/23/16 07:00: White Blood Count 7.1, Red Blood Count 2.66L, Hemoglobin 8.2L, Hematocrit 25.4L , Mean Corpuscular Volume 95, Mean Corpuscular Hemoglobin 31.0, Mean Corpuscular Hemoglobin Concent 32.4, Red Cell Distribution Width 14.8, Platelet Count 153, Mean Platelet Volume 7.3, Neutrophils (%) (Auto) 71.4, Lymphocytes (% ) (Auto) 14.6L, Monocytes (%) (Auto) 7.2, Eosinophils (%) (Auto) 5.4H, Basophils (%) (Auto) 1.3, Prothrombin Time 12.7H, Prothromb Time International Ratio 1.2H, Sodium Level 139, Potassium Level 4.1, Chloride Level 98, Carbon Dioxide Level 27, Anion Gap 14, Blood Urea Nitrogen 15, Creatinine 1.4H, Estimat Glomerular Filtration Rate > 60, Glucose Level 98, Calcium Level 9.1, Magnesium Level 1.6L, Iron Level 39L, Total Iron Binding Capacity 238L, Percent Iron Saturation 16, Unsaturated Iron Binding 199, Troponin I < 0.30, Pro-B-Type Natriuretic Peptide 3941H, Carcinoembryonic Antigen 5.4H, Vitamin B12 Level 562 Current Medications Medications (Trade) Dose Ordered Sig/Ana Route PRN Reason Start Time Stop Time Status Last Admin Dose Admin Acetaminophen (Tylenol) 650 mg Q4H PRN ORAL T>100.5 12/21/16 06:30 01/20/17 06:29 Albuterol/ Ipratropium (DuoNeb 0.5-3(2.5)mg/3ml) 3 ml Q4H PRN HHN Shortness of Breath 12/21/16 06:30 12/26/16 06:29 12/21/16 12:18 Amiodarone HCl (Cordarone) 200 mg EVERY 12 HOURS ORAL 12/21/16 21:00 01/20/17 20:59 12/23/16 08:12 Aspirin (Ecotrin) 325 mg DAILY ORAL 12/22/16 09:00 01/21/17 08:59 12/23/16 08:11 Cephalexin (Keflex) 500 mg EVERY 8 HOURS ORAL 12/21/16 20:00 12/28/16 19:59 12/23/16 06:06 Chlorhexidine Gluconate (Tara-Hex 2%) 1 applic DAILY TOPIC 12/23/16 09:00 01/22/17 08:59 Dextrose (Dextrose 50%) STAT PRN IV Hypoglycemia 12/21/16 06:30 01/20/17 06:29 Enoxaparin Sodium (Lovenox) 90 mg Q12H SUBQ 12/23/16 11:30 01/22/17 11:29 12/23/16 10:43 Furosemide (Lasix) 40 mg EVERY 12 HOURS ORAL 12/23/16 09:00 01/22/17 08:59 12/23/16 08:11 Heparin Sodium/ Sodium Chloride (Heparin 2000 units/Ns 1000ml premix) 2,000 unit ONCE INJ 12/22/16 15:15 12/23/16 23:59 Hydromorphone HCl (Dilaudid) 1.5 mg Q3H PRN SUBQ Severe Pain (Pain Scale 7-10) 12/22/16 23:00 12/29/16 22:59 12/23/16 09:17 Lidocaine HCl (Xylocaine 1% 30ml) 30 ml ONCE INJ 12/22/16 15:15 12/23/16 23:59 Lorazepam (Ativan) 0.5 mg Q8H PRN ORAL For Anxiety 12/21/16 21:08 12/28/16 21:07 12/23/16 08:11 Multi-Ingredient Ointment (Eucerin) 1 applic DAILY TOPIC 12/22/16 12:30 01/21/17 12:29 12/21/16 14:56 Ondansetron HCl (Zofran) 4 mg Q6H PRN IVP Nausea & Vomiting 12/21/16 06:30 01/20/17 06:29 Oxycodone/ Acetaminophen (Percocet 5-325) 1 tab Q4H PRN ORAL Moderate Pain (Pain Scale 4-6) 12/21/16 07:11 12/28/16 03:29 Pantoprazole (Protonix) 40 mg DAILY ORAL 12/22/16 14:00 01/21/17 13:59 12/23/16 08:11 Polyethylene Glycol (Miralax) 17 gm DAILYPRN PRN ORAL Constipation 12/21/16 06:30 01/20/17 06:29 Temazepam (Restoril) 15 mg HSPRN PRN ORAL Insomnia 12/21/16 21:00 12/28/16 20:59 Vitamin A/Vitamin D (A & D Oint) 1 applic EVERY 12 HOURS TOPIC 12/22/16 21:00 01/21/17 20:59 12/23/16 08:12 Warfarin Sodium (Coumadin per pharmacy) 1 ea DAILY PRN MISC PER RX PROTOCOL 12/23/16 06:00 01/22/17 05:59 Warfarin Sodium (Coumadin) 3 mg COUMADIN ONCE ORAL 12/23/16 17:00 12/23/16 17:01 Greg ([facility])Katerine NP Dec 23, 2016 11:17
--- NOTE | 2016-12-23 11:32 | Diagnostic Imaging Report ---
Indication: Shortness of breath Technique: XRAY CHEST 1 V Comparison: 12/22/16 Findings: Cardiomediastinal silhouette is stable. Sternotomy wires and left chest pacemaker are again noted. There is again interstitial edema and a left basilar pleural effusion. Moderate right possibly loculated pleural fluid is unchanged. The osseous structures are stable. Impression: No significant change from 12/22/16.
[2016-12-23 12:00] VITALS: BP 118/67
--- NOTE | 2016-12-23 12:43 | Internal Med Progress Note ---
Subjective Date of Service: Dec 23, 2016 Physician Name Isaias Ortiz Attending Physician Claudio Michel MD Current Medications Medications (Trade) Dose Ordered Sig/Ana Route PRN Reason Start Time Stop Time Status Last Admin Dose Admin Acetaminophen (Tylenol) 650 mg Q4H PRN ORAL T>100.5 12/21/16 06:30 01/20/17 06:29 Albuterol/ Ipratropium (DuoNeb 0.5-3(2.5)mg/3ml) 3 ml Q4H PRN HHN Shortness of Breath 12/21/16 06:30 12/26/16 06:29 12/21/16 12:18 Amiodarone HCl (Cordarone) 200 mg EVERY 12 HOURS ORAL 12/21/16 21:00 01/20/17 20:59 12/23/16 08:12 Aspirin (Ecotrin) 325 mg DAILY ORAL 12/22/16 09:00 01/21/17 08:59 12/23/16 08:11 Cephalexin (Keflex) 500 mg EVERY 8 HOURS ORAL 12/21/16 20:00 12/28/16 19:59 12/23/16 06:06 Chlorhexidine Gluconate (Tara-Hex 2%) 1 applic DAILY TOPIC 12/23/16 09:00 01/22/17 08:59 Dextrose (Dextrose 50%) STAT PRN IV Hypoglycemia 12/21/16 06:30 01/20/17 06:29 Enoxaparin Sodium (Lovenox) 90 mg Q12H SUBQ 12/23/16 11:30 01/22/17 11:29 12/23/16 10:43 Furosemide (Lasix) 40 mg EVERY 12 HOURS ORAL 12/23/16 09:00 01/22/17 08:59 12/23/16 08:11 Heparin Sodium/ Sodium Chloride (Heparin 2000 units/Ns 1000ml premix) 2,000 unit ONCE INJ 12/22/16 15:15 12/23/16 23:59 Hydromorphone HCl (Dilaudid) 1.5 mg Q3H PRN SUBQ Severe Pain (Pain Scale 7-10) 12/22/16 23:00 12/29/16 22:59 12/23/16 12:29 Lidocaine HCl (Xylocaine 1% 30ml) 30 ml ONCE INJ 12/22/16 15:15 12/23/16 23:59 Lorazepam (Ativan) 0.5 mg Q8H PRN ORAL For Anxiety 12/21/16 21:08 12/28/16 21:07 12/23/16 08:11 Magnesium Sulfate (Magnesium Sulfate 1gm/100ml) 100 ml @ 100 mls/hr Q1H IVPB 12/23/16 12:15 12/23/16 14:14 Multi-Ingredient Ointment (Eucerin) 1 applic DAILY TOPIC 12/22/16 12:30 01/21/17 12:29 12/21/16 14:56 Ondansetron HCl (Zofran) 4 mg Q6H PRN IVP Nausea & Vomiting 12/21/16 06:30 01/20/17 06:29 Oxycodone/ Acetaminophen (Percocet 5-325) 1 tab Q4H PRN ORAL Moderate Pain (Pain Scale 4-6) 12/21/16 07:11 12/28/16 03:29 Pantoprazole (Protonix) 40 mg DAILY ORAL 12/22/16 14:00 01/21/17 13:59 12/23/16 08:11 Polyethylene Glycol (Miralax) 17 gm DAILYPRN PRN ORAL Constipation 12/21/16 06:30 01/20/17 06:29 Temazepam (Restoril) 15 mg HSPRN PRN ORAL Insomnia 12/21/16 21:00 12/28/16 20:59 Vitamin A/Vitamin D (A & D Oint) 1 applic EVERY 12 HOURS TOPIC 12/22/16 21:00 01/21/17 20:59 12/23/16 08:12 Warfarin Sodium (Coumadin per pharmacy) 1 ea DAILY PRN MISC PER RX PROTOCOL 12/23/16 06:00 01/22/17 05:59 Warfarin Sodium 3 mg 3 mg COUMADIN ONCE ORAL 12/23/16 17:00 12/23/16 17:01 Allergies: Coded Allergies: DABIGATRAN ETEXILATE (Unverified Allergy, Unknown, 12/21/16) KETOROLAC (Verified Allergy, Unknown, 11/17/11) KETOROLAC TROMETHAMINE (Unverified Allergy, Unknown, 02/05/16) UNK MORPHINE (Verified Allergy, Unknown, 11/17/11) ROS Limited/Unobtainable: No Constitutional: Reports: no symptoms HEENT: Reports: no symptoms Cardiovascular: Reports: chest pain Respiratory: Reports: no symptoms Gastrointestinal/Abdominal: Reports: no symptoms Genitourinary: Reports: no symptoms Neurologic/Psychiatric: Reports: no symptoms Subjective 61 YO M admitted with chest pain. S/P tricuspid anuloplasty. Cover for Int [place] -Dr Michel. Objective Last Vital Signs Date Time Temp Pulse Resp B/P Pulse Ox O2 Delivery O2 Flow Rate FiO2 12/23/16 12:00 98.2 80 21 118/67 98 Room Air 12/23/16 08:00 3.0 12/23/16 07:25 28 General Appearance: WD/WN, no apparent distress, alert EENT: PERRL/EOMI, normal ENT inspection, TMs normal Neck: non-tender, normal alignment, supple Cardiovascular: normal peripheral pulses, normal rate, regular rhythm, no gallop/murmur, no JVD Respiratory/Chest: chest wall non-tender, lungs clear, normal breath sounds, no respiratory distress, no accessory muscle use Abdomen: normal bowel sounds, non tender, soft, no organomegaly, no mass Edema: trace edema Neurologic: immersion 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 II-XII grossly normal Skin: normal pigmentation Laboratory Tests Test 12/22/16 19:00 12/23/16 07:00 Stool Occult Blood Negative (NEGATIVE) White Blood Count 7.1 K/UL (4.8-10.8) Red Blood Count 2.66 M/UL (4.70-6.10) L Hemoglobin 8.2 G/DL (14.2-18.0) L Hematocrit 25.4 % (42.0-52.0) L Mean Corpuscular Volume 95 FL (80-99) Mean Corpuscular Hemoglobin 31.0 PG (27.0-31.0) Mean Corpuscular Hemoglobin Concent 32.4 G/DL (32.0-36.0) Red Cell Distribution Width 14.8 % (11.6-14.8) Platelet Count 153 K/UL (150-450) Mean Platelet Volume 7.3 FL (6.5-10.1) Neutrophils (%) (Auto) 71.4 % (45.0-75.0) Lymphocytes (%) (Auto) 14.6 % (20.0-45.0) L Monocytes (%) (Auto) 7.2 % (1.0-10.0) Eosinophils (%) (Auto) 5.4 % (0.0-3.0) H Basophils (%) (Auto) 1.3 % (0.0-2.0) Prothrombin Time 12.7 SEC (9.30-11.50) H Prothromb Time International Ratio 1.2 (0.9-1.1) H Sodium Level 139 mEQ/L (135-145) Potassium Level 4.1 mEQ/L (3.4-4.9) Chloride Level 98 mEQ/L (98-107) Carbon Dioxide Level 27 mEQ/L (20-30) Anion Gap 14 (5-15) Blood Urea Nitrogen 15 mg/dL (7-23) Creatinine 1.4 mg/dL (0.7-1.2) H Estimat Glomerular Filtration Rate > 60 mL/min (>60) Glucose Level 98 mg/dL (74-106) Calcium Level 9.1 mg/dL (8.6-10.2) Magnesium Level 1.6 mg/dL (1.7-2.5) L Iron Level 39 ug/dL (59-158) L Total Iron Binding Capacity 238 ug/dL (250-400) L Percent Iron Saturation 16 % (15-50) Unsaturated Iron Binding 199 ug/dL (112-346) Troponin I < 0.30 ng/mL (<=0.30) Pro-B-Type Natriuretic Peptide 3941 pg/mL (0-125) H Carcinoembryonic Antigen 5.4 ng/mL H Vitamin B12 Level 562 pg/mL (211-946) Microbiology Date/Time Source Procedure Growth Status 12/21/16 10:15 Nasal Nares MRSA Culture - Final NO METHICILLIN RESISTANT STAPH AUREUS... Complete 12/21/16 10:15 Rectum VRE Culture - Final NO VANCOMYCIN RESISTANT ENTEROCOCCUS ... Complete Intake and Output 12/22/16 12/23/16 19:00 07:00 Output Total 600 ml Balance -600 ml Output Urine Total 600 ml # Voids 2 2 Assessment/Plan Problem List: (1) Mural thrombus of left ventricular apex Assessment & Plan: Possible thrombus. See cardiology note. Continue lovenox until coumadin therapeutic. (2) Tricuspid insufficiency Assessment & Plan: S/P annuloplasty 11/21/16 at [facility] (3) chest pain (4) CHF (congestive heart failure) Assessment & Plan: See cardiology note. Cont lasix (5) Factor V Leiden Assessment & Plan: Continue lovenox until coumadin therapeutic. (6) Cerebral vascular disease (7) Pacemaker (8) History of DVT (deep vein thrombosis) (9) Cardiomyopathy Status: not improved ISAIAS ORTIZ Dec 23, 2016 12:43
[2016-12-23] MEDS: Magnesium Oxide 400mg tab ORAL SCH ×2 (13:50→17:21)
[2016-12-23 16:00] VITALS: BP 117/59
[2016-12-23] MEDS ORDERED: Warfarin Sodium 3mg ORAL ONE (17:00)
[2016-12-23 20:00] VITALS: BP 108/58
[2016-12-24] VITALS: BP 105/59
[2016-12-24] MEDS: LORazepam 0.5mg tab ORAL PRN ×2 (06:08→19:14)
[2016-12-24] MEDS: Cephalexin 500mg cap ORAL SCH ×3 (06:12→22:17)
[2016-12-24] MEDS: Furosemide 40mg tab ORAL SCH ×2 (08:14→22:17)
[2016-12-24] MEDS: Aspirin EC 325mg tab ORAL SCH (08:14)
[2016-12-24] MEDS: Magnesium Oxide 400mg tab ORAL SCH ×3 (08:14→17:08)
[2016-12-24] MEDS: Amiodarone 200mg tab ORAL SCH ×2 (08:15→22:17)
[2016-12-24] MEDS: Eucerin Cream 15gm TOPIC SCH ×2 (08:15→22:18)
[2016-12-24] MEDS: Vitamin A&D Oint 2oz Tube TOPIC SCH ×2 (08:15→21:00)
[2016-12-24] MEDS: Dyna-Hex 2% Top Sol 8oz TOPIC SCH (08:15)
[2016-12-24 09:22] LABS: OTHERS PATHOLOGIST COMMENT
[2016-12-24 10:08] LABS: BASOPHILS % (AUTO) 1.5 % (0.0-2.0); EOSINOPHILS % (AUTO) 4.1 % (0.0-3.0); LYMPHOCYTES % (AUTO) 12.4 % (20.0-45.0); MEAN CORPUSCULAR HEMOGLOBIN 30.6 PG (27.0-31.0); MEAN CORPUSCULAR HGB CONC 32.8 G/DL (32.0-36.0); MEAN CORPUSCULAR VOLUME 93 FL (80-99); MEAN PLATELET VOLUME 7.7 FL (6.5-10.1); MONOCYTES % (AUTO) 7.5 % (1.0-10.0); NEUTROPHILS % (AUTO) 74.4 % (45.0-75.0); PLATELET COUNT 170 K/UL (150-450); RED BLOOD COUNT 2.72 M/UL (4.70-6.10); RED CELL DISTRIBUTION WIDTH 14.3 % (11.6-14.8); WHITE BLOOD COUNT 7.4 K/UL (4.8-10.8)
[2016-12-24 10:19] LABS: INR 1.2 (0.9-1.1); PROTHROMBIN TIME 12.5 SEC (9.30-11.50)
[2016-12-24 10:22] LABS: ANION GAP 11 (5-15); CALCIUM 8.6 mg/dL (8.6-10.2); CARBON DIOXIDE 30 mEQ/L (20-30); CHLORIDE 98 mEQ/L (98-107); CREATININE 1.2 mg/dL (0.7-1.2); GLOMERULAR FILTRATION RATE > 60 mL/min (>60); HEMOLYSIS 1; MAGNESIUM 1.5 mg/dL (1.7-2.5); POTASSIUM 3.9 mEQ/L (3.4-4.9); SODIUM 139 mEQ/L (135-145)
[2016-12-24] MEDS: Enoxaparin 100mg Inj SUBQ SCH (10:33)
--- NOTE | 2016-12-24 10:37 | Pulmonology Progress Note ---
Assessment/Plan Assessment/Plan ASSESSMENT Congestive heart failure. Possible apical left ventricular thrombus. Factor V Leiden deficiency, off anticoagulation due to removal of atrial leads on the 12/15/2016. Recent tricuspid annuloplasty repair Chest wall pain/postop pain Tamponade , status post pericardial window. AICD , redone recently. Pleural effusion bilateral, R>L Ischemic cardiomyopathy. moderate pulmonary HTN valvular heart disease: moderate AR, moderate TR, mdoerate MR History of cerebrovascular accident. History of inferior vena cava filter placement. Acute anemia Renal insufficiency history. Eliquis intolerance hypo Mg PLAN OF CARE tele O2 HHN prn fup CXR Increasing bilateral pleural effusions, particularly on the right. Pleural fluid on the right may be loculated, given the nondependent distribution, although this would be unusual given the rapid development fup with CXR in am serial troponin negative, ECG no acute changes, therefore patient was ruled out for acute [place] chest pain is a chest wall pain,reproducible on palpation due to recent open heart surgery cardio follows ECHO this admission with EF 40-45% and RVSP of 52 c/w moderate pulmonary HTN, moderate AR, MR, TR and possible left apical thrombus diuretic monitor renal parameters, I/O, e/lytes Lasix dose decreased by cardio patient started on a/coagulation with Lovenox and Coumadin to bridge to therapeutic INR , INR subtherapeutic HH at baseline, anemia workup with low iron and low TIBC intolerant to Eliquis continue ASA, Amiodarone, abx GI prophylaxis pain management, increased dose since IM injections currently ( no IV access) replace Mg via po Mg oxide, still low, no line for IV access, check level in am, PICC in am, may need IV replacement if not corrected with oral supplements bowel regimen case discussed and evaluated by supervising physician . Subjective Allergies: Coded Allergies: DABIGATRAN ETEXILATE (Unverified Allergy, Unknown, 12/21/16) KETOROLAC (Verified Allergy, Unknown, 11/17/11) KETOROLAC TROMETHAMINE (Unverified Allergy, Unknown, 02/05/16) UNK MORPHINE (Verified Allergy, Unknown, 11/17/11) Subjective reports chest wall pain at the surgical site s/p recent open heart surgery on O2 via NC pulse oximetry stable on Lovenox no IV access Mg still low Objective Last 24 Hour Vital Signs Date Time Temp Pulse Resp B/P Pulse Ox O2 Delivery O2 Flow Rate FiO2 12/24/16 08:00 80 12/24/16 07:40 Nasal Cannula 2.0 28 12/24/16 07:40 98 Nasal Cannula 2.0 28 12/24/16 07:40 80 16 Nasal Cannula 2.0 28 12/24/16 04:00 80 12/24/16 00:00 80 12/24/16 00:00 98.0 80 18 105/59 100 Nasal Cannula 2.0 12/23/16 22:08 98.6 12/23/16 21:57 81 16 Nasal Cannula 2.0 28 12/23/16 21:57 Nasal Cannula 2.0 28 12/23/16 20:00 80 12/23/16 20:00 98.6 81 18 108/58 98 Room Air 12/23/16 19:00 98 Nasal Cannula 2.0 28 12/23/16 16:00 80 12/23/16 16:00 98.1 80 20 117/59 99 Nasal Cannula 2.0 12/23/16 12:00 98.2 80 21 118/67 98 Room Air 12/23/16 12:00 80 Intake and Output 12/23/16 12/24/16 19:00 07:00 Output Total 500 ml Balance -500 ml Output Urine Total 500 ml # Voids 2 Objective General Appearance: WD/WN, no acute distress HEENT: normocephalic, atraumatic, anicteric, mucous membranes moist, PERRL Respiratory/Chest: chest wall non-tender, lungs clear, no respiratory distress , old sternal scar healed well , Left upper chest with steri strips, tenderness on palpation around surgical site and mild edema , no erythema, no drainage Cardiovascular: normal rate, V pacing on tele, no JVD, edema - +1 BLE Abdomen: normal bowel sounds, soft, non tender, non distended Extremities: other - trace to + 1 edema BLE Neurologic/Psychiatric: no motor/sensory deficits, alert, oriented x 3, responsive Lymphatic: no neck adenopathy Musculoskeletal: normal muscle bulk Laboratory Tests 12/24/16 09:45: White Blood Count 7.4, Red Blood Count 2.72L, Hemoglobin 8.3L, Hematocrit 25.4L , Mean Corpuscular Volume 93, Mean Corpuscular Hemoglobin 30.6, Mean Corpuscular Hemoglobin Concent 32.8, Red Cell Distribution Width 14.3, Platelet Count 170, Mean Platelet Volume 7.7, Neutrophils (%) (Auto) 74.4, Lymphocytes (% ) (Auto) 12.4L, Monocytes (%) (Auto) 7.5, Eosinophils (%) (Auto) 4.1H, Basophils (%) (Auto) 1.5, Prothrombin Time 12.5H, Prothromb Time International Ratio 1.2H, Sodium Level 139, Potassium Level 3.9, Chloride Level 98, Carbon Dioxide Level 30, Anion Gap 11, Blood Urea Nitrogen 11, Creatinine 1.2, Estimat Glomerular Filtration Rate > 60, Glucose Level 96, Calcium Level 8.6, Magnesium Level 1.5L Current Medications Medications (Trade) Dose Ordered Sig/Ana Route PRN Reason Start Time Stop Time Status Last Admin Dose Admin Acetaminophen (Tylenol) 650 mg Q4H PRN ORAL T>100.5 12/21/16 06:30 01/20/17 06:29 Albuterol/ Ipratropium (DuoNeb 0.5-3(2.5)mg/3ml) 3 ml Q4H PRN HHN Shortness of Breath 12/21/16 06:30 12/26/16 06:29 12/21/16 12:18 Amiodarone HCl (Cordarone) 200 mg EVERY 12 HOURS ORAL 12/21/16 21:00 01/20/17 20:59 12/24/16 08:15 Aspirin (Ecotrin) 325 mg DAILY ORAL 12/22/16 09:00 01/21/17 08:59 12/24/16 08:14 Cephalexin (Keflex) 500 mg EVERY 8 HOURS ORAL 12/21/16 20:00 12/28/16 19:59 12/24/16 06:12 Chlorhexidine Gluconate (Tara-Hex 2%) 1 applic DAILY TOPIC 12/23/16 09:00 01/22/17 08:59 Dextrose (Dextrose 50%) STAT PRN IV Hypoglycemia 12/21/16 06:30 01/20/17 06:29 Enoxaparin Sodium (Lovenox) 90 mg Q12H SUBQ 12/23/16 11:30 01/22/17 11:29 12/24/16 10:33 Furosemide (Lasix) 40 mg EVERY 12 HOURS ORAL 12/23/16 09:00 8/14/17 08:59 12/24/16 08:14 Hydromorphone HCl (Dilaudid) 2 mg Q3H PRN IM Severe Pain (Pain Scale 7-10) 12/24/16 08:45 12/31/16 08:44 12/24/16 09:52 Lorazepam (Ativan) 0.5 mg Q8H PRN ORAL For Anxiety 12/21/16 21:08 12/28/16 21:07 12/24/16 06:08 Magnesium Oxide (Mag-Ox 400mg) 400 mg THREE TIMES A DAY ORAL 12/23/16 13:00 01/22/17 12:59 12/24/16 08:14 Multi-Ingredient Ointment (Eucerin) 1 applic DAILY TOPIC 12/22/16 12:30 01/21/17 12:29 12/24/16 08:15 Ondansetron HCl (Zofran) 4 mg Q6H PRN IVP Nausea & Vomiting 12/21/16 06:30 01/20/17 06:29 Oxycodone/ Acetaminophen (Percocet 5-325) 1 tab Q4H PRN ORAL Moderate Pain (Pain Scale 4-6) 12/21/16 07:11 12/28/16 03:29 Pantoprazole (Protonix) 40 mg DAILY ORAL 12/22/16 14:00 01/21/17 13:59 12/24/16 08:14 Polyethylene Glycol (Miralax) 17 gm DAILYPRN PRN ORAL Constipation 12/21/16 06:30 01/20/17 06:29 Temazepam (Restoril) 15 mg HSPRN PRN ORAL Insomnia 12/21/16 21:00 12/28/16 20:59 Vitamin A/Vitamin D (A & D Oint) 1 applic EVERY 12 HOURS TOPIC 12/22/16 21:00 01/21/17 20:59 12/24/16 08:15 Warfarin Sodium (Coumadin per pharmacy) 1 ea DAILY PRN MISC PER RX PROTOCOL 12/23/16 06:00 01/22/17 05:59 Greg (Kendra)Katerine NP Dec 24, 2016 10:37
[2016-12-24 12:00] VITALS: BP 100/53
--- NOTE | 2016-12-24 12:50 | Cardiology Progress Note ---
Assessment/Plan Assessment/Plan 1. Congestive heart failure. 2. Questionable apical left ventricular thrombus. 3. Factor V Leiden deficiency, off anticoagulation due to removal of atrial leads on the 12/15/2016. 4. Recent tricuspid annuloplasty repair with a 30 Chadwick-Castanon pericardial valve. 5. Tamponade status post pericardial window. 6. Permanent pacemaker implantable cardioversion defibrillator implantation with atrial leads removal and redo 12/14 7. Pleural effusion status post thoracentesis possibly. 8. Ischemic cardiomyopathy. 9. History of cerebrovascular accident. 10. History of inferior vena cava filter placement. 11. Renal insufficiency history. 12. anemia with acute drop in h/h 13. ? LV thrombus 14. Eliquis intolerance 15. peripacer hematoma ? hg stable bp is ok but lower than yest pt feel pacer site is more swollen on evaluation that may be more prominent to me as well will dc lovenox for now evluate the pacer site are daily decerase lasix to daily Subjective Cardiovascular: Denies: irregular heart rate, lightheadedness Respiratory: Reports: shortness of breath Gastrointestinal/Abdominal: Denies: abdominal pain Genitourinary: Denies: burning Subjective not feel good feel pacer sit is more swollen Objective Last 24 Hour Vital Signs Date Time Temp Pulse Resp B/P Pulse Ox O2 Delivery O2 Flow Rate FiO2 12/24/16 08:00 80 12/24/16 07:40 Nasal Cannula 2.0 28 12/24/16 07:40 98 Nasal Cannula 2.0 28 12/24/16 07:40 80 16 Nasal Cannula 2.0 28 12/24/16 04:00 80 12/24/16 00:00 80 12/24/16 00:00 98.0 80 18 105/59 100 Nasal Cannula 2.0 12/23/16 22:08 98.6 12/23/16 21:57 81 16 Nasal Cannula 2.0 28 12/23/16 21:57 Nasal Cannula 2.0 28 12/23/16 20:00 80 12/23/16 20:00 98.6 81 18 108/58 98 Room Air 12/23/16 19:00 98 Nasal Cannula 2.0 28 12/23/16 16:00 80 12/23/16 16:00 98.1 80 20 117/59 99 Nasal Cannula 2.0 General Appearance: no apparent distress, alert Neck: no JVD Cardiovascular: normal rate, regular rhythm, other - pacer sigt may be littelr more prominent Respiratory/Chest: crackles/rales - right Abdomen: normal bowel sounds, non tender, soft Extremities: other - chronic venous stais changes Intake and Output 12/23/16 12/24/16 19:00 07:00 Output Total 500 ml Balance -500 ml Output Urine Total 500 ml # Voids 2 Laboratory Tests Test 12/24/16 09:45 White Blood Count 7.4 K/UL (4.8-10.8) Red Blood Count 2.72 M/UL (4.70-6.10) L Hemoglobin 8.3 G/DL (14.2-18.0) L Hematocrit 25.4 % (42.0-52.0) L Mean Corpuscular Volume 93 FL (80-99) Mean Corpuscular Hemoglobin 30.6 PG (27.0-31.0) Mean Corpuscular Hemoglobin Concent 32.8 G/DL (32.0-36.0) Red Cell Distribution Width 14.3 % (11.6-14.8) Platelet Count 170 K/UL (150-450) Mean Platelet Volume 7.7 FL (6.5-10.1) Neutrophils (%) (Auto) 74.4 % (45.0-75.0) Lymphocytes (%) (Auto) 12.4 % (20.0-45.0) L Monocytes (%) (Auto) 7.5 % (1.0-10.0) Eosinophils (%) (Auto) 4.1 % (0.0-3.0) H Basophils (%) (Auto) 1.5 % (0.0-2.0) Prothrombin Time 12.5 SEC (9.30-11.50) H Prothromb Time International Ratio 1.2 (0.9-1.1) H Sodium Level 139 mEQ/L (135-145) Potassium Level 3.9 mEQ/L (3.4-4.9) Chloride Level 98 mEQ/L (98-107) Carbon Dioxide Level 30 mEQ/L (20-30) Anion Gap 11 (5-15) Blood Urea Nitrogen 11 mg/dL (7-23) Creatinine 1.2 mg/dL (0.7-1.2) Estimat Glomerular Filtration Rate > 60 mL/min (>60) Glucose Level 96 mg/dL (74-106) Calcium Level 8.6 mg/dL (8.6-10.2) Magnesium Level 1.5 mg/dL (1.7-2.5) [place] SILVA Dec 24, 2016 12:50
--- NOTE | 2016-12-24 13:41 | General Progress Note ---
Assessment/Plan Assessment/Plan (1) Chest wall pain following surgery (2) S/P Tricuspid valve replacement (3) Congestive heart failure (4) COPD (chronic obstructive pulmonary disease) (5) Lumbar DDD (6) Lumbar Spondylosis (7) Lumbar Radiculopathy Patient will be continued on Dilaudid and Percocet. Pt was d/w Dr. Mota and he concurred. Subjective Date patient seen: Dec 24, 2016 Time patient seen: 01:00 - pm Constitutional: Reports: weakness HEENT: Reports: no symptoms Cardiovascular: Reports: chest pain Respiratory: Reports: shortness of breath Gastrointestinal/Abdominal: Reports: no symptoms Genitourinary: Reports: no symptoms Neurologic/Psychiatric: Reports: weakness Endocrine: Reports: no symptoms Hematologic/Lymphatic: Reports: no symptoms Allergies: Coded Allergies: DABIGATRAN ETEXILATE (Unverified Allergy, Unknown, 12/21/16) KETOROLAC (Verified Allergy, Unknown, 11/17/11) KETOROLAC TROMETHAMINE (Unverified Allergy, Unknown, 02/05/16) UNK MORPHINE (Verified Allergy, Unknown, 11/17/11) Subjective Patient continues to c/o pain. His IV line stopped working and the Dilaudid was changed to 2mg IM as needed which has been helping to reduce his pain. Objective Last 24 Hour Vital Signs Date Time Temp Pulse Resp B/P Pulse Ox O2 Delivery O2 Flow Rate FiO2 12/24/16 12:00 98.4 80 17 100/53 98 Room Air 12/24/16 08:00 80 12/24/16 07:40 Nasal Cannula 2.0 28 12/24/16 07:40 98 Nasal Cannula 2.0 28 12/24/16 07:40 80 16 Nasal Cannula 2.0 28 12/24/16 04:00 80 12/24/16 00:00 80 12/24/16 00:00 98.0 80 18 105/59 100 Nasal Cannula 2.0 12/23/16 22:08 98.6 12/23/16 21:57 81 16 Nasal Cannula 2.0 28 12/23/16 21:57 Nasal Cannula 2.0 28 12/23/16 20:00 80 12/23/16 20:00 98.6 81 18 108/58 98 Room Air 12/23/16 19:00 98 Nasal Cannula 2.0 28 12/23/16 16:00 80 12/23/16 16:00 98.1 80 20 117/59 99 Nasal Cannula 2.0 Intake and Output 12/23/16 12/24/16 19:00 07:00 Output Total 500 ml Balance -500 ml Output Urine Total 500 ml # Voids 2 Laboratory Tests 12/24/16 09:45: White Blood Count 7.4, Red Blood Count 2.72L, Hemoglobin 8.3L, Hematocrit 25.4L , Mean Corpuscular Volume 93, Mean Corpuscular Hemoglobin 30.6, Mean Corpuscular Hemoglobin Concent 32.8, Red Cell Distribution Width 14.3, Platelet Count 170, Mean Platelet Volume 7.7, Neutrophils (%) (Auto) 74.4, Lymphocytes (% ) (Auto) 12.4L, Monocytes (%) (Auto) 7.5, Eosinophils (%) (Auto) 4.1H, Basophils (%) (Auto) 1.5, Prothrombin Time 12.5H, Prothromb Time International Ratio 1.2H, Sodium Level 139, Potassium Level 3.9, Chloride Level 98, Carbon Dioxide Level 30, Anion Gap 11, Blood Urea Nitrogen 11, Creatinine 1.2, Estimat Glomerular Filtration Rate > 60, Glucose Level 96, Calcium Level 8.6, Magnesium Level 1.5L Height (Feet): 6 Height (Inches): 1.00 Weight (Pounds): 192 General Appearance: no apparent distress, alert EENT: PERRL/EOMI, normal ENT inspection Neck: supple, normal inspection Cardiovascular: pacemaker/AICD Respiratory/Chest: decreased breath sounds Abdomen: soft, no organomegaly Extremities: swelling Edema: 1+ Arm (L), 1+ Arm (R), 1+ Leg (L), 1+ Leg (R), 1+ Pedal (L), 1+ Pedal ( R), 1+ Generalized Neurologic: alert, oriented x 3 Skin: warm/dry HILTON CABRALES Dec 24, 2016 13:41
--- NOTE | 2016-12-24 15:57 | Internal Med Progress Note ---
Subjective Date of Service: Dec 24, 2016 Physician Name Isaias Ortiz Attending Physician Claudio Michel MD Current Medications Medications (Trade) Dose Ordered Sig/Ana Route PRN Reason Start Time Stop Time Status Last Admin Dose Admin Acetaminophen (Tylenol) 650 mg Q4H PRN ORAL T>100.5 12/21/16 06:30 01/20/17 06:29 Albuterol/ Ipratropium (DuoNeb 0.5-3(2.5)mg/3ml) 3 ml Q4H PRN HHN Shortness of Breath 12/21/16 06:30 12/26/16 06:29 12/21/16 12:18 Amiodarone HCl (Cordarone) 200 mg EVERY 12 HOURS ORAL 12/21/16 21:00 01/20/17 20:59 12/24/16 08:15 Aspirin (Ecotrin) 325 mg DAILY ORAL 12/22/16 09:00 01/21/17 08:59 12/24/16 08:14 Cephalexin (Keflex) 500 mg EVERY 8 HOURS ORAL 12/21/16 20:00 12/28/16 19:59 12/24/16 13:04 Chlorhexidine Gluconate (Tara-Hex 2%) 1 applic DAILY TOPIC 12/23/16 09:00 01/22/17 08:59 Dextrose (Dextrose 50%) STAT PRN IV Hypoglycemia 12/21/16 06:30 01/20/17 06:29 Furosemide (Lasix) 40 mg EVERY 12 HOURS ORAL 12/23/16 09:00 01/22/17 08:59 12/24/16 08:14 Hydromorphone HCl (Dilaudid) 2 mg Q3H PRN IM Severe Pain (Pain Scale 7-10) 12/24/16 08:45 12/31/16 08:44 12/24/16 13:04 Lorazepam (Ativan) 0.5 mg Q8H PRN ORAL For Anxiety 12/21/16 21:08 12/28/16 21:07 12/24/16 06:08 Magnesium Oxide (Mag-Ox 400mg) 400 mg THREE TIMES A DAY ORAL 12/23/16 13:00 01/22/17 12:59 12/24/16 13:04 Multi-Ingredient Ointment (Eucerin) 1 applic DAILY TOPIC 12/22/16 12:30 01/21/17 12:29 12/24/16 08:15 Ondansetron HCl (Zofran) 4 mg Q6H PRN IVP Nausea & Vomiting 12/21/16 06:30 01/20/17 06:29 Oxycodone/ Acetaminophen (Percocet 5-325) 1 tab Q4H PRN ORAL Moderate Pain (Pain Scale 4-6) 12/21/16 07:11 12/28/16 03:29 Pantoprazole (Protonix) 40 mg DAILY ORAL 12/22/16 14:00 01/21/17 13:59 12/24/16 08:14 Polyethylene Glycol (Miralax) 17 gm DAILYPRN PRN ORAL Constipation 12/21/16 06:30 01/20/17 06:29 Temazepam (Restoril) 15 mg HSPRN PRN ORAL Insomnia 12/21/16 21:00 12/28/16 20:59 Vitamin A/Vitamin D (A & D Oint) 1 applic EVERY 12 HOURS TOPIC 12/22/16 21:00 01/21/17 20:59 12/24/16 08:15 Warfarin Sodium (Coumadin per pharmacy) 1 ea DAILY PRN MISC PER RX PROTOCOL 12/23/16 06:00 01/22/17 05:59 Warfarin Sodium (Coumadin) 3 mg COUMADIN ONCE ORAL 12/24/16 17:00 12/24/16 17:01 Allergies: Coded Allergies: DABIGATRAN ETEXILATE (Unverified Allergy, Unknown, 12/21/16) KETOROLAC (Verified Allergy, Unknown, 11/17/11) KETOROLAC TROMETHAMINE (Unverified Allergy, Unknown, 02/05/16) UNK MORPHINE (Verified Allergy, Unknown, 11/17/11) ROS Limited/Unobtainable: No Constitutional: Reports: no symptoms HEENT: Reports: no symptoms Cardiovascular: Reports: chest pain Respiratory: Reports: no symptoms Gastrointestinal/Abdominal: Reports: no symptoms Genitourinary: Reports: no symptoms Neurologic/Psychiatric: Reports: no symptoms Subjective 61 YO M admitted with chest pain. S/P tricuspid anuloplasty. Cover for Int [place] -Dr Michel. Objective Last Vital Signs Date Time Temp Pulse Resp B/P Pulse Ox O2 Delivery O2 Flow Rate FiO2 12/24/16 12:00 98.4 80 17 100/53 98 Room Air 12/24/16 07:40 2.0 28 Laboratory Tests Test 12/24/16 09:45 White Blood Count 7.4 K/UL (4.8-10.8) Red Blood Count 2.72 M/UL (4.70-6.10) L Hemoglobin 8.3 G/DL (14.2-18.0) L Hematocrit 25.4 % (42.0-52.0) L Mean Corpuscular Volume 93 FL (80-99) Mean Corpuscular Hemoglobin 30.6 PG (27.0-31.0) Mean Corpuscular Hemoglobin Concent 32.8 G/DL (32.0-36.0) Red Cell Distribution Width 14.3 % (11.6-14.8) Platelet Count 170 K/UL (150-450) Mean Platelet Volume 7.7 FL (6.5-10.1) Neutrophils (%) (Auto) 74.4 % (45.0-75.0) Lymphocytes (%) (Auto) 12.4 % (20.0-45.0) L Monocytes (%) (Auto) 7.5 % (1.0-10.0) Eosinophils (%) (Auto) 4.1 % (0.0-3.0) H Basophils (%) (Auto) 1.5 % (0.0-2.0) Prothrombin Time 12.5 SEC (9.30-11.50) H Prothromb Time International Ratio 1.2 (0.9-1.1) H Sodium Level 139 mEQ/L (135-145) Potassium Level 3.9 mEQ/L (3.4-4.9) Chloride Level 98 mEQ/L (98-107) Carbon Dioxide Level 30 mEQ/L (20-30) Anion Gap 11 (5-15) Blood Urea Nitrogen 11 mg/dL (7-23) Creatinine 1.2 mg/dL (0.7-1.2) Estimat Glomerular Filtration Rate > 60 mL/min (>60) Glucose Level 96 mg/dL (74-106) Calcium Level 8.6 mg/dL (8.6-10.2) Magnesium Level 1.5 mg/dL (1.7-2.5) L Intake and Output 12/23/16 12/24/16 19:00 07:00 Output Total 500 ml Balance -500 ml Output Urine Total 500 ml # Voids 2 Objective General Appearance: WD/WN, no apparent distress, alert EENT: PERRL/EOMI, normal ENT inspection, TMs normal Neck: non-tender, normal alignment, supple Cardiovascular: normal peripheral pulses, normal rate, regular rhythm, no gallop/murmur, no JVD Respiratory/Chest: chest wall non-tender, lungs clear, normal breath sounds, no respiratory distress, no accessory muscle use Abdomen: normal bowel sounds, non tender, soft, no organomegaly, no mass Edema: trace edema 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 See cardiology note. Continue lovenox until coumadin therapeutic. (2) Tricuspid insufficiency Assessment & Plan: S/P annuloplasty 11/21/16 at [facility] (3) chest pain (4) CHF (congestive heart failure) Assessment & Plan: See cardiology note. Cont lasix (5) Factor V Leiden Assessment & Plan: Continue lovenox until coumadin therapeutic. (6) Cerebral vascular disease (7) Pacemaker (8) History of DVT (deep vein thrombosis) (9) Cardiomyopathy Status: not improved ISAIAS ORTIZ Dec 24, 2016 15:57
[2016-12-24 16:00] VITALS: BP 113/98
[2016-12-24] MEDS: Warfarin Sodium 3mg ORAL ONE ×2 (17:09→18:35)
[2016-12-24 20:00] VITALS: BP 98/53
[2016-12-25] VITALS (7 sets, daily range): BP systolic 103–116; BP diastolic 58–66
[2016-12-25] MEDS: Cephalexin 500mg cap ORAL SCH ×3 (05:59→21:25)
[2016-12-25] MEDS: LORazepam 0.5mg tab ORAL PRN ×2 (06:04→21:26)
--- NOTE | 2016-12-25 08:32 | General Progress Note ---
Assessment/Plan Assessment/Plan (1) Chest wall pain following surgery (2) S/P Tricuspid valve replacement (3) Congestive heart failure (4) COPD (chronic obstructive pulmonary disease) (5) Lumbar DDD (6) Lumbar Spondylosis (7) Lumbar Radiculopathy Patient will be continued on Dilaudid and Percocet. Pt was d/w Dr. Mota and he concurred. Subjective Date patient seen: Dec 25, 2016 Time patient seen: 07:00 - am Allergies: Coded Allergies: DABIGATRAN ETEXILATE (Unverified Allergy, Unknown, 12/21/16) KETOROLAC (Verified Allergy, Unknown, 11/17/11) KETOROLAC TROMETHAMINE (Unverified Allergy, Unknown, 02/05/16) UNK MORPHINE (Verified Allergy, Unknown, 11/17/11) Subjective Constitutional: Reports: weakness HEENT: Reports: no symptoms Cardiovascular: Reports: chest pain Respiratory: Reports: shortness of breath Gastrointestinal/Abdominal: Reports: no symptoms Genitourinary: Reports: no symptoms Neurologic/Psychiatric: Reports: weakness Endocrine: Reports: no symptoms Hematologic/Lymphatic: Reports: no symptoms Subjective: His pain has been stable on the Dilaudid and is reduced from a 9/10 to a 5/10. Objective Last 24 Hour Vital Signs Date Time Temp Pulse Resp B/P Pulse Ox O2 Delivery O2 Flow Rate FiO2 12/25/16 04:41 97.8 12/25/16 04:00 80 12/25/16 04:00 97.5 80 21 116/66 98 Room Air 12/25/16 00:00 98.1 81 20 112/60 100 Room Air 12/25/16 00:00 80 12/24/16 20:00 98.1 80 20 98/53 98 Room Air 12/24/16 20:00 77 12/24/16 19:23 100 Nasal Cannula 2.0 12/24/16 19:23 Nasal Cannula 2.0 12/24/16 19:22 88 16 Nasal Cannula 2.0 28 12/24/16 16:00 80 12/24/16 16:00 98.2 84 18 113/98 98 Room Air 12/24/16 12:00 98.4 80 17 100/53 98 Room Air 12/24/16 12:00 80 Intake and Output 12/24/16 12/25/16 19:00 07:00 Intake Total 640 ml Output Total 840 ml 600 ml Balance -200 ml -600 ml Intake Oral 640 ml Output Urine Total 840 ml 600 ml # Voids 3 2 Laboratory Tests 12/24/16 09:45: White Blood Count 7.4, Red Blood Count 2.72L, Hemoglobin 8.3L, Hematocrit 25.4L , Mean Corpuscular Volume 93, Mean Corpuscular Hemoglobin 30.6, Mean Corpuscular Hemoglobin Concent 32.8, Red Cell Distribution Width 14.3, Platelet Count 170, Mean Platelet Volume 7.7, Neutrophils (%) (Auto) 74.4, Lymphocytes (% ) (Auto) 12.4L, Monocytes (%) (Auto) 7.5, Eosinophils (%) (Auto) 4.1H, Basophils (%) (Auto) 1.5, Prothrombin Time 12.5H, Prothromb Time International Ratio 1.2H, Sodium Level 139, Potassium Level 3.9, Chloride Level 98, Carbon Dioxide Level 30, Anion Gap 11, Blood Urea Nitrogen 11, Creatinine 1.2, Estimat Glomerular Filtration Rate > 60, Glucose Level 96, Calcium Level 8.6, Magnesium Level 1.5L Height (Feet): 6 Height (Inches): 1.00 Weight (Pounds): 198 Objective General Appearance: no apparent distress, alert EENT: PERRL/EOMI, normal ENT inspection Neck: supple, normal inspection Cardiovascular: pacemaker/AICD Respiratory/Chest: decreased breath sounds Abdomen: soft, no organomegaly Extremities: swelling Edema: 1+ Generalized Neurologic: alert, oriented x 3 Skin: warm/dry HILTON CABRALES P.Cheryl Dec 25, 2016 08:32
[2016-12-25] MEDS: Aspirin EC 325mg tab ORAL SCH (09:19)
[2016-12-25] MEDS: Magnesium Oxide 400mg tab ORAL SCH ×3 (09:19→18:53)
[2016-12-25] MEDS: Furosemide 40mg tab ORAL SCH ×2 (09:20→21:26)
[2016-12-25] MEDS: Amiodarone 200mg tab ORAL SCH ×2 (09:26→21:25)
[2016-12-25] MEDS: Vitamin A&D Oint 2oz Tube TOPIC SCH ×2 (09:27→21:26)
[2016-12-25] MEDS: Dyna-Hex 2% Top Sol 8oz TOPIC SCH (09:27)
--- NOTE | 2016-12-25 11:49 | Internal Med Progress Note ---
Subjective Date of Service: Dec 25, 2016 Physician Name Isaias Ortiz Attending Physician Claudio Michel MD Current Medications Medications (Trade) Dose Ordered Sig/Ana Route PRN Reason Start Time Stop Time Status Last Admin Dose Admin Acetaminophen (Tylenol) 650 mg Q4H PRN ORAL T>100.5 12/21/16 06:30 01/20/17 06:29 Albuterol/ Ipratropium (DuoNeb 0.5-3(2.5)mg/3ml) 3 ml Q4H PRN HHN Shortness of Breath 12/21/16 06:30 12/26/16 06:29 12/21/16 12:18 Amiodarone HCl (Cordarone) 200 mg EVERY 12 HOURS ORAL 12/21/16 21:00 01/20/17 20:59 12/25/16 09:26 Aspirin (Ecotrin) 325 mg DAILY ORAL 12/22/16 09:00 01/21/17 08:59 12/25/16 09:19 Cephalexin (Keflex) 500 mg EVERY 8 HOURS ORAL 12/21/16 20:00 12/28/16 19:59 12/25/16 05:59 Chlorhexidine Gluconate (Tara-Hex 2%) 1 applic DAILY TOPIC 12/23/16 09:00 01/22/17 08:59 12/25/16 09:27 Dextrose (Dextrose 50%) STAT PRN IV Hypoglycemia 12/21/16 06:30 01/20/17 06:29 Furosemide (Lasix) 40 mg EVERY 12 HOURS ORAL 12/23/16 09:00 01/22/17 08:59 12/25/16 09:20 Hydromorphone HCl (Dilaudid) 2 mg Q3H PRN IM Severe Pain (Pain Scale 7-10) 12/24/16 08:45 12/31/16 08:44 12/25/16 10:53 Lorazepam (Ativan) 0.5 mg Q8H PRN ORAL For Anxiety 12/21/16 21:08 12/28/16 21:07 12/25/16 06:04 Magnesium Oxide (Mag-Ox 400mg) 400 mg THREE TIMES A DAY ORAL 12/23/16 13:00 01/22/17 12:59 12/25/16 09:19 Multi-Ingredient Ointment (Eucerin) 1 applic DAILY TOPIC 12/22/16 12:30 01/21/17 12:29 12/24/16 22:18 Ondansetron HCl (Zofran) 4 mg Q6H PRN IVP Nausea & Vomiting 12/21/16 06:30 01/20/17 06:29 Oxycodone/ Acetaminophen (Percocet 5-325) 1 tab Q4H PRN ORAL Moderate Pain (Pain Scale 4-6) 12/21/16 07:11 12/28/16 03:29 Pantoprazole (Protonix) 40 mg DAILY ORAL 12/22/16 14:00 01/21/17 13:59 12/25/16 09:19 Polyethylene Glycol (Miralax) 17 gm DAILYPRN PRN ORAL Constipation 12/21/16 06:30 01/20/17 06:29 Temazepam (Restoril) 15 mg HSPRN PRN ORAL Insomnia 12/21/16 21:00 12/28/16 20:59 Vitamin A/Vitamin D (A & D Oint) 1 applic EVERY 12 HOURS TOPIC 12/22/16 21:00 01/21/17 20:59 12/25/16 09:27 Warfarin Sodium (Coumadin per pharmacy) 1 ea DAILY PRN MISC PER RX PROTOCOL 12/23/16 06:00 01/22/17 05:59 Allergies: Coded Allergies: DABIGATRAN ETEXILATE (Unverified Allergy, Unknown, 12/21/16) KETOROLAC (Verified Allergy, Unknown, 11/17/11) KETOROLAC TROMETHAMINE (Unverified Allergy, Unknown, 02/05/16) UNK MORPHINE (Verified Allergy, Unknown, 11/17/11) ROS Limited/Unobtainable: No Constitutional: Reports: no symptoms HEENT: Reports: no symptoms Cardiovascular: Reports: chest pain Respiratory: Reports: no symptoms Gastrointestinal/Abdominal: Reports: no symptoms Genitourinary: Reports: no symptoms Neurologic/Psychiatric: Reports: no symptoms Subjective 61 YO M admitted with chest pain. S/P tricuspid anuloplasty. Cover for Tj Michel. Objective Last Vital Signs Date Time Temp Pulse Resp B/P Pulse Ox O2 Delivery O2 Flow Rate FiO2 12/25/16 11:20 98.4 12/25/16 09:08 80 18 110/58 100 Nasal Cannula 2.0 12/25/16 08:45 28 Intake and Output 12/24/16 12/25/16 19:00 07:00 Intake Total 640 ml Output Total 840 ml 600 ml Balance -200 ml -600 ml Intake Oral 640 ml Output Urine Total 840 ml 600 ml # Voids 3 2 Objective General Appearance: WD/WN, no apparent distress, alert EENT: PERRL/EOMI, normal ENT inspection, TMs normal Neck: non-tender, normal alignment, supple Cardiovascular: normal peripheral pulses, normal rate, regular rhythm, no gallop/murmur, no JVD Respiratory/Chest: chest wall non-tender, lungs clear, normal breath sounds, no respiratory distress, no accessory muscle use Abdomen: normal bowel sounds, non tender, soft, no organomegaly, no mass Edema: trace edema 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 See cardiology note. Continue coumadin ; D/C lovenox per cardiology (2) Tricuspid insufficiency Assessment & Plan: S/P annuloplasty 11/21/16 at [facility] (3) chest pain (4) CHF (congestive heart failure) Assessment & Plan: See cardiology note. Cont lasix (5) Factor V Leiden Assessment & Plan: Continue lovenox until coumadin therapeutic. (6) Cerebral vascular disease (7) Pacemaker (8) History of DVT (deep vein thrombosis) (9) Cardiomyopathy ISAIAS ORTIZ Dec 25, 2016 11:49
--- NOTE | 2016-12-25 12:50 | Diagnostic Imaging Report ---
Indication: Dyspnea Comparison: 12/23/16 A single view chest radiograph was obtained. Findings: Interstitial edema is suspected. Heart is enlarged. There is evidence of a left pleural effusion. There is a large pleural-based density on the right, non-gravity dependent which may be a loculated pleural effusion relatively unchanged in appearance. Impression: Interstitial edema unchanged. Other findings stable
--- NOTE | 2016-12-25 17:03 | Diagnostic Imaging Report ---
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 The right upper extremity was prepped with alcohol. All elements of maximal sterile barrier technique were followed including usage of a cap, mask, sterile gown, sterile gloves, hand hygiene and a large sterile sheet. Sonographic evaluation of the upper extremity was performed demonstrating a patent and compressible brachial vein. Access was obtained under real-time ultrasound guidance and digital image was saved and archived. An .018 wire was introduced. Needle exchanged for a 5 Romansh peel-away sheath. Measurements were obtained. A 5 Romansh dual-lumen Power PICC line catheter was cut to 35 cm and introduced over the wire. Peel-away sheath and wire were removed.Catheter was secured to the skin using 2-0 Prolene suture. Both ports aspirate and flush easily. Fluoroscopic Images show distal tip in the superior vena cava. Total fluoroscopic time one minute Impression: Successful placement of an upper extremity PICC line catheter
--- NOTE | 2016-12-25 18:27 | Cardiology Progress Note ---
Assessment/Plan Assessment/Plan 1. Congestive heart failure. 2. Questionable apical left ventricular thrombus. 3. Factor V Leiden deficiency, off anticoagulation due to removal of atrial leads on the 12/15/2016. 4. Recent tricuspid annuloplasty repair with a 30 Chadwick-Castanon pericardial valve. 5. Tamponade status post pericardial window. 6. Permanent pacemaker implantable cardioversion defibrillator implantation with atrial leads removal and redo 12/14 7. Pleural effusion status post thoracentesis possibly. 8. Ischemic cardiomyopathy. 9. History of cerebrovascular accident. 10. History of inferior vena cava filter placement. 11. Renal insufficiency history. 12. anemia with acute drop in h/h 13. ? LV thrombus 14. Eliquis intolerance 15. peripacer hematoma ? check cbc in am off anticoagulation with lmwh due to hematoma on the pacer bp is ok y on lasix to daily i have expl;aien to the pt the problem with anticoagulation is till on coumadin but nto therapeutic may hope is may be he will stabilize with respect to hematoma by the time he get somewhat therapeutic with inr , if hematoma grows i may have to dc couamdin as well cxr reviwed Subjective Cardiovascular: Denies: chest pain, lightheadedness, palpitations Respiratory: Reports: shortness of breath Gastrointestinal/Abdominal: Denies: abdomen distended Genitourinary: Denies: burning Subjective not feel good say he had "labored breathing " but he does not look labored at all feel pacer sit is swollen Objective Last 24 Hour Vital Signs Date Time Temp Pulse Resp B/P Pulse Ox O2 Delivery O2 Flow Rate FiO2 12/25/16 16:00 98.0 92 18 110/60 98 Room Air 12/25/16 15:00 98.4 12/25/16 12:00 98.4 90 18 109/59 98 Room Air 12/25/16 12:00 80 12/25/16 09:08 98.4 80 18 110/58 100 Nasal Cannula 2.0 12/25/16 08:45 84 16 Nasal Cannula 2.0 28 12/25/16 08:45 98 Nasal Cannula 2.0 28 12/25/16 08:45 Nasal Cannula 2.0 28 12/25/16 08:00 98.4 82 18 110/59 99 Room Air 12/25/16 07:51 80 12/25/16 04:00 80 12/25/16 04:00 97.5 80 21 116/66 98 Room Air 12/25/16 00:00 98.1 81 20 112/60 100 Room Air 12/25/16 00:00 80 12/24/16 20:00 98.1 80 20 98/53 98 Room Air 12/24/16 20:00 77 12/24/16 19:23 100 Nasal Cannula 2.0 12/24/16 19:23 Nasal Cannula 2.0 12/24/16 19:22 88 16 Nasal Cannula 2.0 28 General Appearance: alert Neck: supple Cardiovascular: normal rate, regular rhythm, other - hematoma over lyign the pacer adn surroundign the pacer may be the same size as yest Respiratory/Chest: lungs clear Intake and Output 12/24/16 12/25/16 19:00 07:00 Intake Total 640 ml Output Total 840 ml 600 ml Balance -200 ml -600 ml Intake Oral 640 ml Output Urine Total 840 ml 600 ml # Voids 3 2 [place] ALVAREZ Dec 25, 2016 18:27
--- NOTE | 2016-12-25 19:00 | Cardiology Report ---
APPROVED REPORT EKG Measurement Heart [id number] Low voltage QRS Left posterior fascicular block Cannot rule out Anterior infarct, age undetermined Abnormal ECG
[2016-12-25 21:05] LABS: BASOPHILS % (AUTO) 1.2 % (0.0-2.0); MEAN CORPUSCULAR HEMOGLOBIN 31.6 PG (27.0-31.0); MEAN CORPUSCULAR HGB CONC 33.8 G/DL (32.0-36.0); MEAN CORPUSCULAR VOLUME 94 FL (80-99); MEAN PLATELET VOLUME 8.1 FL (6.5-10.1); MONOCYTES % (AUTO) 5.4 % (1.0-10.0); NEUTROPHILS % (AUTO) 77.4 % (45.0-75.0); PLATELET COUNT 133 K/UL (150-450); RED BLOOD COUNT 2.58 M/UL (4.70-6.10); RED CELL DISTRIBUTION WIDTH 14.3 % (11.6-14.8); WHITE BLOOD COUNT 6.7 K/UL (4.8-10.8)
[2016-12-25 21:22] LABS: INR 1.2 (0.9-1.1); PROTHROMBIN TIME 12.7 SEC (9.30-11.50)
[2016-12-25 21:29] LABS: ANION GAP 9 (5-15); CALCIUM 8.7 mg/dL (8.6-10.2); CARBON DIOXIDE 31 mEQ/L (20-30); CHLORIDE 94 mEQ/L (98-107); CREATININE 1.2 mg/dL (0.7-1.2); GLOMERULAR FILTRATION RATE > 60 mL/min (>60); HEMOLYSIS 3; MAGNESIUM 1.6 mg/dL (1.7-2.5); POTASSIUM 3.7 mEQ/L (3.4-4.9); SODIUM 134 mEQ/L (135-145)
[2016-12-25] MEDS ORDERED: Warfarin Sodium 5mg ORAL ONE (22:00)
[2016-12-25] MEDS ORDERED: DuoNeb 0.5-3(2.5)mg/3ml neb HHN PRN (22:30)
[2016-12-25] MEDS ORDERED: Oxycodone/Acetaminophen 5-325 ORAL PRN (23:15)
[2016-12-26] VITALS (7 sets, daily range): BP systolic 107–131; BP diastolic 57–69
[2016-12-26] MEDS: Cephalexin 500mg cap ORAL SCH ×3 (05:38→20:57)
[2016-12-26] MEDS: LORazepam 0.5mg tab ORAL PRN ×2 (06:18→21:56)
[2016-12-26] MEDS ORDERED: Miralax 17gm pkt ORAL PRN (06:30)
[2016-12-26 07:36] LABS: MEAN CORPUSCULAR HEMOGLOBIN 31.1 PG (27.0-31.0); MEAN CORPUSCULAR HGB CONC 32.6 G/DL (32.0-36.0); MEAN CORPUSCULAR VOLUME 95 FL (80-99); MEAN PLATELET VOLUME 7.1 FL (6.5-10.1); PLATELET COUNT 142 K/UL (150-450); RED BLOOD COUNT 2.52 M/UL (4.70-6.10); RED CELL DISTRIBUTION WIDTH 14.1 % (11.6-14.8); WHITE BLOOD COUNT 6.4 K/UL (4.8-10.8)
[2016-12-26 07:46] LABS: ANION GAP 10 (5-15); CALCIUM 8.9 mg/dL (8.6-10.2); CARBON DIOXIDE 33 mEQ/L (20-30); CHLORIDE 97 mEQ/L (98-107); CREATININE 1.2 mg/dL (0.7-1.2); GLOMERULAR FILTRATION RATE > 60 mL/min (>60); HEMOLYSIS 4; POTASSIUM 3.9 mEQ/L (3.4-4.9); SODIUM 140 mEQ/L (135-145)
[2016-12-26 07:57] LABS: INR 1.2 (0.9-1.1); PROTHROMBIN TIME 12.6 SEC (9.30-11.50)
[2016-12-26 08:40] LABS: ANISOCYTOSIS 1+; BAND NEUTROPHILS % (MANUAL) 0 % (0-8); BASOPHILS % (MANUAL) 1 % (0-2); EOSINOPHILS % (MANUAL) 2 % (0-3); HYPOCHROMASIA 3+; LYMPHOCYTES % (MANUAL) 13 % (20-45); NEUTROPHILS % (MANUAL) 75 % (45-75); PLATELET ESTIMATE DECREASED; PLATELET MORPHOLOGY NORMAL; SPHEROCYTES 1+; TOTAL CELLS COUNTED 100
[2016-12-26] MEDS: Aspirin EC 325mg tab ORAL SCH (08:48)
[2016-12-26] MEDS: Furosemide 40mg tab ORAL SCH ×2 (08:48→20:57)
[2016-12-26] MEDS: Amiodarone 200mg tab ORAL SCH ×2 (08:48→20:58)
[2016-12-26] MEDS: Magnesium Oxide 400mg tab ORAL SCH ×3 (08:48→17:17)
[2016-12-26] MEDS: Dyna-Hex 2% Top Sol 8oz TOPIC SCH (11:08)
[2016-12-26] MEDS: Eucerin Cream 15gm TOPIC SCH (11:10)
[2016-12-26] MEDS: Vitamin A&D Oint 2oz Tube TOPIC SCH ×2 (11:11→21:05)
--- NOTE | 2016-12-26 11:27 | Cardiology Report ---
APPROVED REPORT EXAM: Two-dimensional and M-mode echocardiogram with Doppler and color Doppler. INDICATION LV function Other Information Technically limited study due to pts severe pain and sensitivity to scan probe. M-mode measurements of left ventricle not obtainable due to cardiac position (angle) Normal left ventricular chamber size. Septal hypokinesis with asynchronous motion maybe due to pacemaker. Echogenic material noted at LV apex likely myocardial tissue, rather than thrombus. Left ventricular ejection fraction estimated to be 50 %. Study quality precludes accurate assessment of regional wall motion. Mild left ventricular hypertrophy by 2-D. Anterior Echo-free space, may be due to pericardial fat or effusion. Moderate bi-atrial enlargement. Mild right ventricular enlargement. Possible Mitral valve prosthesis is seen and appears to move appropriately. Possible Aortic valve prosthesis is seen and appears to move appropriately. Moderate mitral annulus and aortic root calcification. Pulmonic valve not well visualized. Normal tricuspid valve structure. No subcostal views obtained due to new surgical site. Pacemaker wire present in the right side chambers. A color flow and spectral Doppler study was performed and revealed: Moderate aortic regurgitation. Peak aortic valve gradient of 9 mm Hg and a mean of 5 mmHg. Aortic valve area 3.0 cm2 calculated by continuity equation. Moderate mitral regurgitation. Peak mitral valve diastolic gradient of 5 mmHg and a mean gradient of 2 mmHg with calculated mitral valve area of 4 cm2. Mitral inflow velocities indicates possible pseudo normalization pattern implying moderately elevated left atrial pressure (Grade II ). Moderate tricuspid regurgitation. Tricuspid systolic velocities suggests peak right ventricular systolic pressure of 52 mmHg, consistent with moderate pulmonary hypertension. Notified Dr. Adler by Goran 11:00 am December 21, 2016.
[2016-12-26 13:43] LABS: MEAN CORPUSCULAR HEMOGLOBIN 29.7 PG (27.0-31.0); MEAN CORPUSCULAR HGB CONC 31.5 G/DL (32.0-36.0); MEAN CORPUSCULAR VOLUME 94 FL (80-99); MEAN PLATELET VOLUME 6.1 FL (6.5-10.1); PLATELET COUNT 151 K/UL (150-450); RED CELL DISTRIBUTION WIDTH 14.4 % (11.6-14.8)
[2016-12-26 14:12] LABS: ANISOCYTOSIS 1+; BAND NEUTROPHILS % (MANUAL) 0 % (0-8); BASOPHILS % (MANUAL) 1 % (0-2); EOSINOPHILS % (MANUAL) 2 % (0-3); HYPOCHROMASIA 3+; LYMPHOCYTES % (MANUAL) 11 % (20-45); NEUTROPHILS % (MANUAL) 81 % (45-75); PLATELET ESTIMATE ADEQUATE; PLATELET MORPHOLOGY NORMAL; TOTAL CELLS COUNTED 100
[2016-12-26] MEDS ORDERED: Warfarin Sodium 7.5mg ORAL ONE (17:00)
--- NOTE | 2016-12-26 18:07 | Internal Med Progress Note ---
Subjective Date of Service: Dec 26, 2016 Physician Name Isaias Awan Attending Physician Claudio Michel MD Current Medications Medications (Trade) Dose Ordered Sig/Ana Route PRN Reason Start Time Stop Time Status Last Admin Dose Admin Acetaminophen (Tylenol) 650 mg Q4H PRN ORAL T>100.5 12/25/16 22:30 01/24/17 22:29 Albuterol/ Ipratropium (DuoNeb 0.5-3(2.5)mg/3ml) 3 ml Q4H PRN HHN Shortness of Breath 12/25/16 22:30 12/30/16 22:29 Amiodarone HCl (Cordarone) 200 mg EVERY 12 HOURS ORAL 12/25/16 21:00 01/24/17 20:59 12/26/16 08:48 Aspirin (Ecotrin) 325 mg DAILY ORAL 12/26/16 09:00 01/25/17 08:59 12/26/16 08:48 Cephalexin (Keflex) 500 mg EVERY 8 HOURS ORAL 12/25/16 22:00 01/01/17 21:59 12/26/16 14:37 Chlorhexidine Gluconate (Tara-Hex 2%) 1 applic DAILY TOPIC 12/26/16 09:00 01/25/17 08:59 12/26/16 11:08 Dextrose (Dextrose 50%) STAT PRN IV Hypoglycemia 12/26/16 06:30 01/25/17 06:29 Furosemide (Lasix) 40 mg EVERY 12 HOURS ORAL 12/25/16 21:00 01/24/17 20:59 12/26/16 08:48 Hydromorphone HCl (Dilaudid) 2.5 mg EVERY 3 HOURS PRN IVP pain 7-12/26/16 18:00 01/02/17 17:59 12/26/16 17:56 Lorazepam (Ativan) 0.5 mg Q8H PRN ORAL For Anxiety 12/25/16 21:15 01/01/17 21:14 12/26/16 06:18 Magnesium Oxide (Mag-Ox 400mg) 400 mg THREE TIMES A DAY ORAL 12/26/16 09:00 01/25/17 08:59 12/26/16 17:17 Multi-Ingredient Ointment (Eucerin) 1 applic DAILY TOPIC 12/26/16 09:00 01/25/17 08:59 12/26/16 11:10 Ondansetron HCl (Zofran) 4 mg Q6H PRN IVP Nausea & Vomiting 12/26/16 00:30 01/25/17 00:29 Oxycodone/ Acetaminophen (Percocet 5-325) 1 tab Q4H PRN ORAL Moderate Pain (Pain Scale 4-6) 12/25/16 23:15 01/01/17 23:14 Pantoprazole (Protonix) 40 mg DAILY ORAL 12/26/16 09:00 01/25/17 08:59 12/26/16 08:47 Polyethylene Glycol (Miralax) 17 gm DAILYPRN PRN ORAL Constipation 12/26/16 06:30 01/25/17 06:29 Temazepam (Restoril) 15 mg HSPRN PRN ORAL Insomnia 12/25/16 21:00 01/01/17 20:59 Vitamin A/Vitamin D (A & D Oint) 1 applic EVERY 12 HOURS TOPIC 12/25/16 21:00 01/24/17 20:59 12/26/16 11:11 Warfarin Sodium (Coumadin per pharmacy) 1 ea DAILY PRN MISC PER RX PROTOCOL 12/26/16 09:00 01/25/17 08:59 Allergies: Coded Allergies: DABIGATRAN ETEXILATE (Unverified Allergy, Unknown, 12/21/16) KETOROLAC (Verified Allergy, Unknown, 11/17/11) KETOROLAC TROMETHAMINE (Unverified Allergy, Unknown, 02/05/16) UNK MORPHINE (Verified Allergy, Unknown, 11/17/11) ROS Limited/Unobtainable: No Constitutional: Reports: no symptoms HEENT: Reports: no symptoms Cardiovascular: Reports: chest pain Respiratory: Reports: no symptoms Gastrointestinal/Abdominal: Reports: no symptoms Genitourinary: Reports: no symptoms Neurologic/Psychiatric: Reports: no symptoms Subjective 61 YO M admitted with chest pain. S/P tricuspid anuloplasty. Cover for Int [place] -Dr Michel. C/O pacemaker swelling/pain Objective Last Vital Signs Date Time Temp Pulse Resp B/P Pulse Ox O2 Delivery O2 Flow Rate FiO2 12/26/16 16:22 97.5 80 20 107/63 99 Nasal Cannula 3.0 12/26/16 07:57 28 Laboratory Tests Test 12/25/16 19:45 7/18/17 05:00 12/26/16 13:29 White Blood Count 6.7 K/UL (4.8-10.8) 6.4 K/UL (4.8-10.8) 7.0 K/UL (4.8-10.8) Red Blood Count 2.58 M/UL (4.70-6.10) L 2.52 M/UL (4.70-6.10) L 2.60 M/UL (4.70-6.10) L Hemoglobin 8.1 G/DL (14.2-18.0) L 7.8 G/DL (14.2-18.0) L 7.7 G/DL (14.2-18.0) L Hematocrit 24.1 % (42.0-52.0) L 24.0 % (42.0-52.0) L 24.5 % (42.0-52.0) L Mean Corpuscular Volume 94 FL (80-99) 95 FL (80-99) 94 FL (80-99) Mean Corpuscular Hemoglobin 31.6 PG (27.0-31.0) H 31.1 PG (27.0-31.0) H 29.7 PG (27.0-31.0) Mean Corpuscular Hemoglobin Concent 33.8 G/DL (32.0-36.0) 32.6 G/DL (32.0-36.0) 31.5 G/DL (32.0-36.0) L Red Cell Distribution Width 14.3 % (11.6-14.8) 14.1 % (11.6-14.8) 14.4 % (11.6-14.8) Platelet Count 133 K/UL (150-450) L 142 K/UL (150-450) L 151 K/UL (150-450) Mean Platelet Volume 8.1 FL (6.5-10.1) 7.1 FL (6.5-10.1) 6.1 FL (6.5-10.1) L Neutrophils (%) (Auto) 77.4 % (45.0-75.0) H % (45.0-75.0) % (45.0-75.0) Lymphocytes (%) (Auto) 12.0 % (20.0-45.0) L % (20.0-45.0) % (20.0-45.0) Monocytes (%) (Auto) 5.4 % (1.0-10.0) % (1.0-10.0) % (1.0-10.0) Eosinophils (%) (Auto) 4.0 % (0.0-3.0) H % (0.0-3.0) % (0.0-3.0) Basophils (%) (Auto) 1.2 % (0.0-2.0) % (0.0-2.0) % (0.0-2.0) Prothrombin Time 12.7 SEC (9.30-11.50) H 12.6 SEC (9.30-11.50) H Prothromb Time International Ratio 1.2 (0.9-1.1) H 1.2 (0.9-1.1) H Sodium Level 134 mEQ/L (135-145) L 140 mEQ/L (135-145) Potassium Level 3.7 mEQ/L (3.4-4.9) 3.9 mEQ/L (3.4-4.9) Chloride Level 94 mEQ/L (98-107) L 97 mEQ/L (98-107) L Carbon Dioxide Level 31 mEQ/L (20-30) H 33 mEQ/L (20-30) H Anion Gap 9 (5-15) 10 (5-15) Blood Urea Nitrogen 11 mg/dL (7-23) 13 mg/dL (7-23) Creatinine 1.2 mg/dL (0.7-1.2) 1.2 mg/dL (0.7-1.2) Estimat Glomerular Filtration Rate > 60 mL/min (>60) > 60 mL/min (>60) Glucose Level 98 mg/dL (74-106) 103 mg/dL (74-106) Calcium Level 8.7 mg/dL (8.6-10.2) 8.9 mg/dL (8.6-10.2) Magnesium Level 1.6 mg/dL (1.7-2.5) L Differential Total Cells Counted 100 100 Neutrophils % (Manual) 75 % (45-75) 81 % (45-75) H Lymphocytes % (Manual) 13 % (20-45) L 11 % (20-45) L Monocytes % (Manual) 9 % (1-10) 5 % (1-10) Eosinophils % (Manual) 2 % (0-3) 2 % (0-3) Basophils % (Manual) 1 % (0-2) 1 % (0-2) Band Neutrophils 0 % (0-8) 0 % (0-8) Platelet Estimate Decreased L Adequate Platelet Morphology Normal Normal Hypochromasia 3+ 3+ Anisocytosis 1+ 1+ Spherocytes 1+ Intake and Output 12/25/16 12/26/16 19:00 07:00 Intake Total 640 ml 600 ml Output Total 910 ml 500 ml Balance -270 ml 100 ml Intake Oral 640 ml 600 ml Output Urine Total 910 ml 500 ml # Voids 3 3 Objective General Appearance: WD/WN, no apparent distress, alert EENT: PERRL/EOMI, normal ENT inspection, TMs normal Neck: non-tender, normal alignment, supple Cardiovascular: normal peripheral pulses, normal rate, regular rhythm, no gallop/murmur, no JVD Respiratory/Chest: chest wall non-tender, lungs clear, normal breath sounds, no respiratory distress, no accessory muscle use Abdomen: normal bowel sounds, non tender, soft, no organomegaly, no mass Edema: trace edema Neurologic: hide and skin classer II-XII grossly normal Skin: ?hematoma over pacemaker? normal pigmentation Assessment/Plan Problem List: (1) Mural thrombus of left ventricular apex Assessment & Plan: Possible thrombus. See cardiology note. Continue coumadin ; D/C lovenox per cardiology (2) Tricuspid insufficiency Assessment & Plan: S/P annul[facility] 11/21/16 [facility] (3) chest pain Assessment & Plan: See cardiology note. (4) CHF (congestive heart failure) Assessment & Plan: See cardiology note. Cont lasix (5) Factor V Leiden Assessment & Plan: Continue lovenox until coumadin therapeutic. (6) Cerebral vascular disease (7) Pacemaker (8) History of DVT (deep vein thrombosis) (9) Cardiomyopathy (10) Hematoma complicating a procedure Assessment & Plan: Pacemaker-see cardiology discussion concerning anticoagulation Status: ISAIAS Youngblood Dec 26, 2016 18:07
--- NOTE | 2016-12-26 19:22 | Pulmonology Progress Note ---
Assessment/Plan Problems: (1) Chest wall pain following surgery (2) COPD (chronic obstructive pulmonary disease) (3) Cardiomyopathy Assessment/Plan pt wants his dilaudid frequency to be changed to Q3 adjust pain meds titrate cardiac meds all note reviewed med/surg floor dc planning soon Subjective ROS Limited/Unobtainable: No Constitutional: Reports: no symptoms HEENT: Repors: no symptoms Respiratory: Reports: no symptoms Allergies: Coded Allergies: DABIGATRAN ETEXILATE (Unverified Allergy, Unknown, 12/21/16) KETOROLAC (Verified Allergy, Unknown, 11/17/11) KETOROLAC TROMETHAMINE (Unverified Allergy, Unknown, 02/05/16) UNK MORPHINE (Verified Allergy, Unknown, 11/17/11) Objective Last 24 Hour Vital Signs Date Time Temp Pulse Resp B/P Pulse Ox O2 Delivery O2 Flow Rate FiO2 12/26/16 18:26 97.5 12/26/16 16:22 97.5 80 20 107/63 99 Nasal Cannula 3.0 12/26/16 15:14 99.0 12/26/16 12:41 99.0 81 20 116/65 97 Room Air 12/26/16 08:43 99.0 83 20 120/69 97 Room Air 12/26/16 07:57 97 Nasal Cannula 2.0 28 12/26/16 07:57 Nasal Cannula 2.0 28 12/26/16 07:57 80 16 Nasal Cannula 2.0 28 12/26/16 04:00 98.1 80 18 113/64 97 Room Air 12/26/16 00:00 99.0 67 18 131/57 97 Room Air 12/25/16 20:15 Nasal Cannula 2.0 28 12/25/16 20:15 97 Nasal Cannula 2.0 28 12/25/16 20:14 79 16 Nasal Cannula 2.0 28 12/25/16 20:03 98.6 80 20 103/59 95 Room Air 12/25/16 19:44 98.6 Intake and Output 12/25/16 12/26/16 19:00 07:00 Intake Total 640 ml 600 ml Output Total 910 ml 500 ml Balance -270 ml 100 ml Intake Oral 640 ml 600 ml Output Urine Total 910 ml 500 ml # Voids 3 3 General Appearance: WD/WN HEENT: normocephalic, atraumatic Respiratory/Chest: chest wall non-tender, lungs clear Cardiovascular: normal peripheral pulses, normal rate Abdomen: normal bowel sounds, soft, non tender Genitourinary: normal external genitalia Laboratory Tests 12/25/16 19:45: White Blood Count 6.7, Red Blood Count 2.58L, Hemoglobin 8.1L, Hematocrit 24.1L , Mean Corpuscular Volume 94, Mean Corpuscular Hemoglobin 31.6H, Mean Corpuscular Hemoglobin Concent 33.8, Red Cell Distribution Width 14.3, Platelet Count 133L, Mean Platelet Volume 8.1, Neutrophils (%) (Auto) 77.4H, Lymphocytes (%) (Auto) 12.0L, Monocytes (%) (Auto) 5.4, Eosinophils (%) (Auto) 4.0H, Basophils (%) (Auto) 1.2, Prothrombin Time 12.7H, Prothromb Time International Ratio 1.2H, Sodium Level 134L, Potassium Level 3.7, Chloride Level 94L, Carbon Dioxide Level 31H, Anion Gap 9, Blood Urea Nitrogen 11, Creatinine 1.2, Estimat Glomerular Filtration Rate > 60, Glucose Level 98, Calcium Level 8.7, Magnesium Level 1.6L 12/26/16 05:00: White Blood Count 6.4, Red Blood Count 2.52L, Hemoglobin 7.8L, Hematocrit 24.0L , Mean Corpuscular Volume 95, Mean Corpuscular Hemoglobin 31.1H, Mean Corpuscular Hemoglobin Concent 32.6, Red Cell Distribution Width 14.1, Platelet Count 142L, Mean Platelet Volume 7.1, Neutrophils (%) (Auto) , Lymphocytes (%) ( Auto) , Monocytes (%) (Auto) , Eosinophils (%) (Auto) , Basophils (%) (Auto) , Prothrombin Time 12.6H, Prothromb Time International Ratio 1.2H, Sodium Level 140, Potassium Level 3.9, Chloride Level 97L, Carbon Dioxide Level 33H, Anion Gap 10, Blood Urea Nitrogen 13, Creatinine 1.2, Estimat Glomerular Filtration Rate > 60, Glucose Level 103, Calcium Level 8.9, Differential Total Cells Counted 100, Neutrophils % (Manual) 75, Lymphocytes % (Manual) 13L, Monocytes % (Manual) 9, Eosinophils % (Manual) 2, Basophils % (Manual) 1, Band Neutrophils 0 , Platelet Estimate DecreasedL, Platelet Morphology Normal, Hypochromasia 3+, Anisocytosis 1+, Spherocytes 1+ 12/26/16 13:29: White Blood Count 7.0, Red Blood Count 2.60L, Hemoglobin 7.7L, Hematocrit 24.5L , Mean Corpuscular Volume 94, Mean Corpuscular Hemoglobin 29.7, Mean Corpuscular Hemoglobin Concent 31.5L, Red Cell Distribution Width 14.4, Platelet Count 151, Mean Platelet Volume 6.1L, Neutrophils (%) (Auto) , Lymphocytes (%) (Auto) , Monocytes (%) (Auto) , Eosinophils (%) (Auto) , Basophils (%) (Auto) , Differential Total Cells Counted 100, Neutrophils % ( Manual) 81H, Lymphocytes % (Manual) 11L, Monocytes % (Manual) 5, Eosinophils % ( Manual) 2, Basophils % (Manual) 1, Band Neutrophils 0, Platelet Estimate Adequate, Platelet Morphology Normal, Hypochromasia 3+, Anisocytosis 1+ Current Medications Medications (Trade) Dose Ordered Sig/Ana Route PRN Reason Start Time Stop Time Status Last Admin Dose Admin Acetaminophen (Tylenol) 650 mg Q4H PRN ORAL T>100.5 12/25/16 22:30 01/24/17 22:29 Albuterol/ Ipratropium (DuoNeb 0.5-3(2.5)mg/3ml) 3 ml Q4H PRN HHN Shortness of Breath 12/25/16 22:30 12/30/16 22:29 Amiodarone HCl (Cordarone) 200 mg EVERY 12 HOURS ORAL 12/25/16 21:00 01/24/17 20:59 12/26/16 08:48 Aspirin (Ecotrin) 325 mg DAILY ORAL 12/26/16 09:00 01/25/17 08:59 12/26/16 08:48 Cephalexin (Keflex) 500 mg EVERY 8 HOURS ORAL 12/25/16 22:00 01/01/17 21:59 12/26/16 14:37 Chlorhexidine Gluconate (Tara-Hex 2%) 1 applic DAILY TOPIC 12/26/16 09:00 01/25/17 08:59 12/26/16 11:08 Dextrose (Dextrose 50%) STAT PRN IV Hypoglycemia 12/26/16 06:30 01/25/17 06:29 Furosemide (Lasix) 40 mg EVERY 12 HOURS ORAL 12/25/16 21:00 01/24/17 20:59 12/26/16 08:48 Hydromorphone HCl (Dilaudid) 2.5 mg EVERY 3 HOURS PRN IVP pain 7-10 12/26/16 18:00 01/02/17 17:59 12/26/16 17:56 Lorazepam (Ativan) 0.5 mg Q8H PRN ORAL For Anxiety 12/25/16 21:15 01/01/17 21:14 12/26/16 06:18 Magnesium Oxide (Mag-Ox 400mg) 400 mg THREE TIMES A DAY ORAL 12/26/16 09:00 01/25/17 08:59 12/26/16 17:17 Multi-Ingredient Ointment (Eucerin) 1 applic DAILY TOPIC 12/26/16 09:00 01/25/17 08:59 12/26/16 11:10 Ondansetron HCl (Zofran) 4 mg Q6H PRN IVP Nausea & Vomiting 12/26/16 00:30 01/25/17 00:29 Oxycodone/ Acetaminophen (Percocet 5-325) 1 tab Q4H PRN ORAL Moderate Pain (Pain Scale 4-6) 12/25/16 23:15 01/01/17 23:14 Pantoprazole (Protonix) 40 mg DAILY ORAL 12/26/16 09:00 01/25/17 08:59 12/26/16 08:47 Polyethylene Glycol (Miralax) 17 gm DAILYPRN PRN ORAL Constipation 12/26/16 06:30 01/25/17 06:29 Temazepam (Restoril) 15 mg HSPRN PRN ORAL Insomnia 12/25/16 21:00 01/01/17 20:59 Vitamin A/Vitamin D (A & D Oint) 1 applic EVERY 12 HOURS TOPIC 12/25/16 21:00 01/24/17 20:59 12/26/16 11:11 Warfarin Sodium (Coumadin per pharmacy) 1 ea DAILY PRN MISC PER RX PROTOCOL 12/26/16 09:00 01/25/17 08:59 BLAKE SHETTY Dec 26, 2016 19:22
--- NOTE | 2016-12-26 19:22 | Cardiology Progress Note ---
Assessment/Plan Assessment/Plan 1. Congestive heart failure. 2. Questionable apical left ventricular thrombus. 3. Factor V Leiden deficiency, off anticoagulation due to removal of atrial leads on the 12/15/2016. 4. Recent tricuspid annuloplasty repair with a 30 Chadwick-Castanon pericardial valve. 5. Tamponade status post pericardial window. 6. Permanent pacemaker implantable cardioversion defibrillator implantation with atrial leads removal and redo 12/14 7. Pleural effusion status post thoracentesis possibly. 8. Ischemic cardiomyopathy. 9. History of cerebrovascular accident. 10. History of inferior vena cava filter placement. 11. Renal insufficiency history. 12. anemia with acute drop in h/h 13. ? LV thrombus 14. Eliquis intolerance 15. peripacer hematoma ? check cbc in am off anticoagulation with lmwh due to hematoma on the pacer bp is ok y on lasix to daily i have expl;aien to the pt the problem with anticoagulation is till on coumadin but nto therapeutic may hope is may be he will stabilize with respect to hematoma by the time he get somewhat therapeutic with inr , nto appear to be any larger Subjective Cardiovascular: Reports: chest pain Respiratory: Reports: shortness of breath Gastrointestinal/Abdominal: Denies: abdomen distended, poor appetite Subjective say he had "labored breathing " but he does not look labored at all feel pacer sit is swollen but to pt is not changed Objective Last 24 Hour Vital Signs Date Time Temp Pulse Resp B/P Pulse Ox O2 Delivery O2 Flow Rate FiO2 12/26/16 18:26 97.5 12/26/16 16:22 97.5 80 20 107/63 99 Nasal Cannula 3.0 12/26/16 15:14 99.0 12/26/16 12:41 99.0 81 20 116/65 97 Room Air 12/26/16 08:43 99.0 83 20 120/69 97 Room Air 12/26/16 07:57 97 Nasal Cannula 2.0 28 12/26/16 07:57 Nasal Cannula 2.0 28 12/26/16 07:57 80 16 Nasal Cannula 2.0 28 12/26/16 04:00 98.1 80 18 113/64 97 Room Air 12/26/16 00:00 99.0 67 18 131/57 97 Room Air 12/25/16 20:15 Nasal Cannula 2.0 12/25/16 20:15 97 Nasal Cannula 2.0 28 12/25/16 20:14 79 16 Nasal Cannula 2.0 28 12/25/16 20:03 98.6 80 20 103/59 95 Room Air 12/25/16 19:44 98.6 General Appearance: no apparent distress, alert Neck: supple Cardiovascular: normal rate, regular rhythm Respiratory/Chest: lungs clear Abdomen: normal bowel sounds, non tender, soft Extremities: no swelling Intake and Output 12/25/16 12/26/16 19:00 07:00 Intake Total 640 ml 600 ml Output Total 910 ml 500 ml Balance -270 ml 100 ml Intake Oral 640 ml 600 ml Output Urine Total 910 ml 500 ml # Voids 3 3 Laboratory Tests Test 12/25/16 19:45 12/26/16 05:00 12/26/16 13:29 White Blood Count 6.7 K/UL (4.8-10.8) 6.4 K/UL (4.8-10.8) 7.0 K/UL (4.8-10.8) Red Blood Count 2.58 M/UL (4.70-6.10) L 2.52 M/UL (4.70-6.10) L 2.60 M/UL (4.70-6.10) L Hemoglobin 8.1 G/DL (14.2-18.0) L 7.8 G/DL (14.2-18.0) L 7.7 G/DL (14.2-18.0) L Hematocrit 24.1 % (42.0-52.0) L 24.0 % (42.0-52.0) L 24.5 % (42.0-52.0) L Mean Corpuscular Volume 94 FL (80-99) 95 FL (80-99) 94 FL (80-99) Mean Corpuscular Hemoglobin 31.6 PG (27.0-31.0) H 31.1 PG (27.0-31.0) H 29.7 PG (27.0-31.0) Mean Corpuscular Hemoglobin Concent 33.8 G/DL (32.0-36.0) 32.6 G/DL (32.0-36.0) 31.5 G/DL (32.0-36.0) L Red Cell Distribution Width 14.3 % (11.6-14.8) 14.1 % (11.6-14.8) 14.4 % (11.6-14.8) Platelet Count 133 K/UL (150-450) L 142 K/UL (150-450) L 151 K/UL (150-450) Mean Platelet Volume 8.1 FL (6.5-10.1) 7.1 FL (6.5-10.1) 6.1 FL (6.5-10.1) L Neutrophils (%) (Auto) 77.4 % (45.0-75.0) H % (45.0-75.0) % (45.0-75.0) Lymphocytes (%) (Auto) 12.0 % (20.0-45.0) L % (20.0-45.0) % (20.0-45.0) Monocytes (%) (Auto) 5.4 % (1.0-10.0) % (1.0-10.0) % (1.0-10.0) Eosinophils (%) (Auto) 4.0 % (0.0-3.0) H % (0.0-3.0) % (0.0-3.0) Basophils (%) (Auto) 1.2 % (0.0-2.0) % (0.0-2.0) % (0.0-2.0) Prothrombin Time 12.7 SEC (9.30-11.50) H 12.6 SEC (9.30-11.50) H Prothromb Time International Ratio 1.2 (0.9-1.1) H 1.2 (0.9-1.1) H Sodium Level 134 mEQ/L (135-145) L 140 mEQ/L (135-145) Potassium Level 3.7 mEQ/L (3.4-4.9) 3.9 mEQ/L (3.4-4.9) Chloride Level 94 mEQ/L (98-107) L 97 mEQ/L (98-107) L Carbon Dioxide Level 31 mEQ/L (20-30) H 33 mEQ/L (20-30) H Anion Gap 9 (5-15) 10 (5-15) Blood Urea Nitrogen 11 mg/dL (7-23) 13 mg/dL (7-23) Creatinine 1.2 mg/dL (0.7-1.2) 1.2 mg/dL (0.7-1.2) Estimat Glomerular Filtration Rate > 60 mL/min (>60) > 60 mL/min (>60) Glucose Level 98 mg/dL (74-106) 103 mg/dL (74-106) Calcium Level 8.7 mg/dL (8.6-10.2) 8.9 mg/dL (8.6-10.2) Magnesium Level 1.6 mg/dL (1.7-2.5) L Differential Total Cells Counted 100 100 Neutrophils % (Manual) 75 % (45-75) 81 % (45-75) H Lymphocytes % (Manual) 13 % (20-45) L 11 % (20-45) L Monocytes % (Manual) 9 % (1-10) 5 % (1-10) Eosinophils % (Manual) 2 % (0-3) 2 % (0-3) Basophils % (Manual) 1 % (0-2) 1 % (0-2) Band Neutrophils 0 % (0-8) 0 % (0-8) Platelet Estimate Decreased L Adequate Platelet Morphology Normal Normal Hypochromasia 3+ 3+ Anisocytosis 1+ 1+ Spherocytes 1+ [place] ALVAREZ Dec 26, 2016 19:22
--- NOTE | 2016-12-26 19:31 | General Progress Note ---
Assessment/Plan Assessment/Plan (1) Chest wall pain following surgery (2) S/P Tricuspid valve replacement (3) Congestive heart failure (4) COPD (chronic obstructive pulmonary disease) (5) Lumbar DDD (6) Lumbar Spondylosis (7) Lumbar Radiculopathy Patient will be continued on Dilaudid reduced to 2mg IV Q4H PRN severe pain and Percocet. We will start Oxycontin 20mg PO 1 tab Q8H ATC hold for oversedation and Neurontin 100mg PO 1 cap Q8H. Pt was d/w Dr. Mota and he concurred. Subjective Date patient seen: Dec 26, 2016 Time patient seen: 06:30 - pm Allergies: Coded Allergies: DABIGATRAN ETEXILATE (Unverified Allergy, Unknown, 12/21/16) KETOROLAC (Verified Allergy, Unknown, 11/17/11) KETOROLAC TROMETHAMINE (Unverified Allergy, Unknown, 02/05/16) UNK MORPHINE (Verified Allergy, Unknown, 11/17/11) Subjective Constitutional: Reports: weakness HEENT: Reports: no symptoms Cardiovascular: Reports: chest pain Respiratory: Reports: shortness of breath Gastrointestinal/Abdominal: Reports: no symptoms Genitourinary: Reports: no symptoms Neurologic/Psychiatric: Reports: weakness Endocrine: Reports: no symptoms Hematologic/Lymphatic: Reports: no symptoms Subjective: Patient is c/o increased pain which had not been tolerated on the Dilaudid 2mg IV and wellness assistant increased to Dilaudid 2.5mg IV Q3H PRN. Objective Last 24 Hour Vital Signs Date Time Temp Pulse Resp B/P Pulse Ox O2 Delivery O2 Flow Rate FiO2 12/26/16 18:26 97.5 12/26/16 16:22 97.5 80 20 107/63 99 Nasal Cannula 3.0 12/26/16 15:14 99.0 12/26/16 12:41 99.0 81 20 116/65 97 Room Air 12/26/16 08:43 99.0 83 20 120/69 97 Room Air 12/26/16 07:57 97 Nasal Cannula 2.0 12/26/16 07:57 Nasal Cannula 2.0 28 12/26/16 07:57 80 16 Nasal Cannula 2.0 12/26/16 04:00 98.1 80 18 113/64 97 Room Air 12/26/16 00:00 99.0 67 18 131/57 97 Room Air 12/25/16 20:15 Nasal Cannula 2.0 28 12/25/16 20:15 97 Nasal Cannula 2.0 28 12/25/16 20:14 79 16 Nasal Cannula 2.0 28 12/25/16 20:03 98.6 80 20 103/59 95 Room Air 12/25/16 19:44 98.6 Intake and Output 12/25/16 12/26/16 19:00 07:00 Intake Total 640 ml 600 ml Output Total 910 ml 500 ml Balance -270 ml 100 ml Intake Oral 640 ml 600 ml Output Urine Total 910 ml 500 ml # Voids 3 3 Laboratory Tests 12/25/16 19:45: White Blood Count 6.7, Red Blood Count 2.58L, Hemoglobin 8.1L, Hematocrit 24.1L , Mean Corpuscular Volume 94, Mean Corpuscular Hemoglobin 31.6H, Mean Corpuscular Hemoglobin Concent 33.8, Red Cell Distribution Width 14.3, Platelet Count 133L, Mean Platelet Volume 8.1, Neutrophils (%) (Auto) 77.4H, Lymphocytes (%) (Auto) 12.0L, Monocytes (%) (Auto) 5.4, Eosinophils (%) (Auto) 4.0H, Basophils (%) (Auto) 1.2, Prothrombin Time 12.7H, Prothromb Time International Ratio 1.2H, Sodium Level 134L, Potassium Level 3.7, Chloride Level 94L, Carbon Dioxide Level 31H, Anion Gap 9, Blood Urea Nitrogen 11, Creatinine 1.2, Estimat Glomerular Filtration Rate > 60, Glucose Level 98, Calcium Level 8.7, Magnesium Level 1.6L 12/26/16 05:00: White Blood Count 6.4, Red Blood Count 2.52L, Hemoglobin 7.8L, Hematocrit 24.0L , Mean Corpuscular Volume 95, Mean Corpuscular Hemoglobin 31.1H, Mean Corpuscular Hemoglobin Concent 32.6, Red Cell Distribution Width 14.1, Platelet Count 142L, Mean Platelet Volume 7.1, Neutrophils (%) (Auto) , Lymphocytes (%) ( Auto) , Monocytes (%) (Auto) , Eosinophils (%) (Auto) , Basophils (%) (Auto) , Prothrombin Time 12.6H, Prothromb Time International Ratio 1.2H, Sodium Level 140, Potassium Level 3.9, Chloride Level 97L, Carbon Dioxide Level 33H, Anion Gap 10, Blood Urea Nitrogen 13, Creatinine 1.2, Estimat Glomerular Filtration Rate > 60, Glucose Level 103, Calcium Level 8.9, Differential Total Cells Counted 100, Neutrophils % (Manual) 75, Lymphocytes % (Manual) 13L, Monocytes % (Manual) 9, Eosinophils % (Manual) 2, Basophils % (Manual) 1, Band Neutrophils 0 , Platelet Estimate DecreasedL, Platelet Morphology Normal, Hypochromasia 3+, Anisocytosis 1+, Spherocytes 1+ 12/26/16 13:29: White Blood Count 7.0, Red Blood Count 2.60L, Hemoglobin 7.7L, Hematocrit 24.5L , Mean Corpuscular Volume 94, Mean Corpuscular Hemoglobin 29.7, Mean Corpuscular Hemoglobin Concent 31.5L, Red Cell Distribution Width 14.4, Platelet Count 151, Mean Platelet Volume 6.1L, Neutrophils (%) (Auto) , Lymphocytes (%) (Auto) , Monocytes (%) (Auto) , Eosinophils (%) (Auto) , Basophils (%) (Auto) , Differential Total Cells Counted 100, Neutrophils % ( Manual) 81H, Lymphocytes % (Manual) 11L, Monocytes % (Manual) 5, Eosinophils % ( Manual) 2, Basophils % (Manual) 1, Band Neutrophils 0, Platelet Estimate Adequate, Platelet Morphology Normal, Hypochromasia 3+, Anisocytosis 1+ Height (Feet): 6 Height (Inches): 1.00 Weight (Pounds): 199 Objective General Appearance: no apparent distress, alert EENT: PERRL/EOMI, normal ENT inspection Neck: supple, normal inspection Cardiovascular: pacemaker/AICD Respiratory/Chest: decreased breath sounds Abdomen: soft, no organomegaly Extremities: swelling Edema: 1+ Generalized Neurologic: alert, oriented x 3 Skin: warm/dry HILTON CABRALES PRowan Dec 26, 2016 19:31
[2016-12-26] MEDS ORDERED: oxyCONTIN 20mg tab ORAL SCH (22:00)
[2016-12-27 03:47] VITALS: BP 123/73
[2016-12-27] MEDS: Cephalexin 500mg cap ORAL SCH ×3 (06:07→22:00)
--- NOTE | 2016-12-27 07:56 | Diagnostic Imaging Report ---
APPROVED REPORT CPT Code: 40387 Present Symptoms Comments: Pain Technically difficult study due to pain (limited compression) and patient's inability to tolerate study BILATERAL: Imaging reveals a patent deep venous system bilaterally. There is no evidence of thrombus within the femoral, or popliteal segments. The greater saphenous veins are also within normal limits. Doppler indicates normal spontaneous flow within these segments. The calf veins were not imaged, due to bandages.
[2016-12-27 08:02] VITALS: BP 126/73
--- NOTE | 2016-12-27 08:34 | General Progress Note ---
Assessment/Plan Assessment/Plan (1) Chest wall pain following surgery (2) S/P Tricuspid valve replacement (3) Congestive heart failure (4) COPD (chronic obstructive pulmonary disease) (5) Lumbar DDD (6) Lumbar Spondylosis (7) Lumbar Radiculopathy Patient will be continued on Dilaudid and Percocet. Pt was d/w Dr. Mota and he concurred. Subjective Date patient seen: Dec 27, 2016 Time patient seen: 06:15 - am Allergies: Coded Allergies: DABIGATRAN ETEXILATE (Unverified Allergy, Unknown, 12/21/16) KETOROLAC (Verified Allergy, Unknown, 11/17/11) KETOROLAC TROMETHAMINE (Unverified Allergy, Unknown, 02/05/16) UNK MORPHINE (Verified Allergy, Unknown, 11/17/11) Subjective Constitutional: Reports: weakness HEENT: Reports: no symptoms Cardiovascular: Reports: chest pain Respiratory: Reports: shortness of breath Gastrointestinal/Abdominal: Reports: no symptoms Genitourinary: Reports: no symptoms Neurologic/Psychiatric: Reports: weakness Endocrine: Reports: no symptoms Hematologic/Lymphatic: Reports: no symptoms Subjective: Pt head been c/o severe pain and it was not tolerated on the Oxycontin and Neurontin additions, which he also states caused him to have nausea and vomiting. He was discontinued off them and Dilaudid was increased to 2.5mg Q3H PRN. Objective Last 24 Hour Vital Signs Date Time Temp Pulse Resp B/P Pulse Ox O2 Delivery O2 Flow Rate FiO2 12/27/16 08:02 97.7 80 20 126/73 98 Nasal Cannula 2.0 12/27/16 03:47 97.3 80 18 123/73 97 Nasal Cannula 3.0 12/26/16 23:36 98.1 80 18 107/64 100 Nasal Cannula 3.0 12/26/16 20:00 98.6 80 18 107/62 97 Nasal Cannula 3.0 12/26/16 19:21 85 18 Nasal Cannula 3.0 32 12/26/16 19:21 98 Nasal Cannula 2.0 28 12/26/16 19:21 Nasal Cannula 2.0 28 12/26/16 18:26 97.5 12/26/16 16:22 97.5 80 20 107/63 99 Nasal Cannula 3.0 12/26/16 15:14 99.0 12/26/16 12:41 99.0 81 20 116/65 97 Room Air 12/26/16 08:43 99.0 83 20 120/69 97 Room Air Intake and Output 12/26/16 12/27/16 19:00 07:00 Intake Total 600 ml 980 ml Output Total 600 ml 650 ml Balance 0 ml 330 ml Intake Oral 600 ml 480 ml Blood Product 500 ml Output Urine Total 600 ml 650 ml # Voids 3 Laboratory Tests 12/26/16 13:29: White Blood Count 7.0, Red Blood Count 2.60L, Hemoglobin 7.7L, Hematocrit 24.5L , Mean Corpuscular Volume 94, Mean Corpuscular Hemoglobin 29.7, Mean Corpuscular Hemoglobin Concent 31.5L, Red Cell Distribution Width 14.4, Platelet Count 151, Mean Platelet Volume 6.1L, Neutrophils (%) (Auto) , Lymphocytes (%) (Auto) , Monocytes (%) (Auto) , Eosinophils (%) (Auto) , Basophils (%) (Auto) , Differential Total Cells Counted 100, Neutrophils % ( Manual) 81H, Lymphocytes % (Manual) 11L, Monocytes % (Manual) 5, Eosinophils % ( Manual) 2, Basophils % (Manual) 1, Band Neutrophils 0, Platelet Estimate Adequate, Platelet Morphology Normal, Hypochromasia 3+, Anisocytosis 1+ Height (Feet): 6 Height (Inches): 1.00 Weight (Pounds): 203 Objective General Appearance: no apparent distress, alert EENT: PERRL/EOMI, normal ENT inspection Neck: supple, normal inspection Cardiovascular: pacemaker/AICD Respiratory/Chest: decreased breath sounds Abdomen: soft, no organomegaly Extremities: swelling Edema: 1+ Generalized Neurologic: alert, oriented x 3 Skin: warm/dry HILTON CABRALES PRowan Dec 27, 2016 08:34
[2016-12-27 09:16] LABS: BASOPHILS % (AUTO) 1.3 % (0.0-2.0); EOSINOPHILS % (AUTO) 3.1 % (0.0-3.0); LYMPHOCYTES % (AUTO) 8.5 % (20.0-45.0); MEAN CORPUSCULAR HEMOGLOBIN 29.6 PG (27.0-31.0); MEAN CORPUSCULAR HGB CONC 32.1 G/DL (32.0-36.0); MEAN CORPUSCULAR VOLUME 92 FL (80-99); MEAN PLATELET VOLUME 7.2 FL (6.5-10.1); MONOCYTES % (AUTO) 6.5 % (1.0-10.0); NEUTROPHILS % (AUTO) 80.5 % (45.0-75.0); PLATELET COUNT 150 K/UL (150-450); RED BLOOD COUNT 3.32 M/UL (4.70-6.10); RED CELL DISTRIBUTION WIDTH 14.7 % (11.6-14.8); WHITE BLOOD COUNT 8.5 K/UL (4.8-10.8)
[2016-12-27] MEDS: Dyna-Hex 2% Top Sol 8oz TOPIC SCH (09:19)
[2016-12-27] MEDS: Eucerin Cream 15gm TOPIC SCH (09:19)
[2016-12-27 09:27] LABS: INR 1.3 (0.9-1.1); PROTHROMBIN TIME 13.7 SEC (9.30-11.50)
[2016-12-27 09:33] LABS: ANION GAP 8 (5-15); CALCIUM 8.9 mg/dL (8.6-10.2); CARBON DIOXIDE 31 mEQ/L (20-30); CHLORIDE 95 mEQ/L (98-107); CREATININE 1.2 mg/dL (0.7-1.2); GLOMERULAR FILTRATION RATE > 60 mL/min (>60); HEMOLYSIS 2; POTASSIUM 3.9 mEQ/L (3.4-4.9); SODIUM 134 mEQ/L (135-145)
[2016-12-27] MEDS: LORazepam 0.5mg tab ORAL PRN ×2 (10:08→20:55)
[2016-12-27] MEDS: Furosemide 40mg tab ORAL SCH ×2 (10:09→20:56)
[2016-12-27] MEDS: Amiodarone 200mg tab ORAL SCH ×2 (10:09→20:55)
[2016-12-27] MEDS: Magnesium Oxide 400mg tab ORAL SCH ×3 (10:10→17:07)
[2016-12-27] MEDS: Aspirin EC 325mg tab ORAL SCH (10:10)
[2016-12-27] MEDS: Vitamin A&D Oint 2oz Tube TOPIC SCH ×2 (10:11→20:56)
[2016-12-27 11:56] VITALS: BP 124/65
--- NOTE | 2016-12-27 12:39 | Internal Med Progress Note ---
Subjective Date of Service: Dec 27, 2016 Physician Name Isaias Ortiz Attending Physician Claudio Michel MD Current Medications Medications (Trade) Dose Ordered Sig/Naa Route PRN Reason Start Time Stop Time Status Last Admin Dose Admin Acetaminophen (Tylenol) 650 mg Q4H PRN ORAL T>100.5 12/25/16 22:30 01/24/17 22:29 Albuterol/ Ipratropium (DuoNeb 0.5-3(2.5)mg/3ml) 3 ml Q4H PRN HHN Shortness of Breath 12/25/16 22:30 12/30/16 22:29 Amiodarone HCl (Cordarone) 200 mg EVERY 12 HOURS ORAL 12/25/16 21:00 01/24/17 20:59 12/27/16 10:09 Aspirin (Ecotrin) 325 mg DAILY ORAL 12/26/16 09:00 01/25/17 08:59 12/27/16 10:10 Cephalexin (Keflex) 500 mg EVERY 8 HOURS ORAL 12/25/16 22:00 12/27/16 23:59 12/27/16 06:07 Chlorhexidine Gluconate (Tara-Hex 2%) 1 applic DAILY TOPIC 12/26/16 09:00 01/25/17 08:59 12/27/16 09:19 Dextrose (Dextrose 50%) STAT PRN IV Hypoglycemia 12/26/16 06:30 01/25/17 06:29 Furosemide (Lasix) 40 mg EVERY 12 HOURS ORAL 12/25/16 21:00 01/24/17 20:59 12/27/16 10:09 Hydromorphone HCl (Dilaudid) 2.5 mg EVERY 3 HOURS PRN IVP pain 7-12/26/16 21:00 01/02/17 20:59 12/27/16 12:13 Lorazepam (Ativan) 0.5 mg Q8H PRN ORAL For Anxiety 12/25/16 21:15 01/01/17 21:14 12/27/16 10:08 Magnesium Oxide (Mag-Ox 400mg) 400 mg THREE TIMES A DAY ORAL 12/26/16 09:00 01/25/17 08:59 12/27/16 12:13 Multi-Ingredient Ointment (Eucerin) 1 applic DAILY TOPIC 12/26/16 09:00 01/25/17 08:59 12/27/16 09:19 Ondansetron HCl (Zofran) 4 mg Q6H PRN IVP Nausea & Vomiting 12/26/16 00:30 01/25/17 00:29 Oxycodone/ Acetaminophen (Percocet 5-325) 1 tab Q4H PRN ORAL Moderate Pain (Pain Scale 4-6) 12/25/16 23:15 01/01/17 23:14 Pantoprazole (Protonix) 40 mg DAILY ORAL 12/26/16 09:00 01/25/17 08:59 12/27/16 10:09 Polyethylene Glycol (Miralax) 17 gm DAILYPRN PRN ORAL Constipation 12/26/16 06:30 01/25/17 06:29 Temazepam (Restoril) 15 mg HSPRN PRN ORAL Insomnia 12/25/16 21:00 01/01/17 20:59 Vitamin A/Vitamin D (A & D Oint) 1 applic EVERY 12 HOURS TOPIC 12/25/16 21:00 01/24/17 20:59 12/27/16 10:11 Warfarin Sodium (Coumadin per pharmacy) 1 ea DAILY PRN MISC PER RX PROTOCOL 12/26/16 09:00 01/25/17 08:59 Warfarin Sodium (Coumadin) 7.5 mg COUMADIN ONCE ORAL 12/27/16 17:00 12/27/16 17:01 Allergies: Coded Allergies: DABIGATRAN ETEXILATE (Unverified Allergy, Unknown, 12/21/16) KETOROLAC (Verified Allergy, Unknown, 11/17/11) KETOROLAC TROMETHAMINE (Unverified Allergy, Unknown, 02/05/16) UNK MORPHINE (Verified Allergy, Unknown, 11/17/11) ROS Limited/Unobtainable: No Constitutional: Reports: no symptoms HEENT: Reports: no symptoms Cardiovascular: Reports: chest pain Respiratory: Reports: no symptoms Gastrointestinal/Abdominal: Reports: no symptoms Genitourinary: Reports: no symptoms Neurologic/Psychiatric: Reports: no symptoms Subjective 61 YO M admitted with chest pain. S/P tricuspid anuloplasty. Cover for Int [place] -Dr Michel. C/O pacemaker swelling/pain Objective Last Vital Signs Date Time Temp Pulse Resp B/P Pulse Ox O2 Delivery O2 Flow Rate FiO2 12/27/16 11:56 97.7 80 20 124/65 98 Room Air 12/27/16 08:02 2.0 12/27/16 07:52 32 Laboratory Tests Test 12/26/16 13:29 12/27/16 08:35 White Blood Count 7.0 K/UL (4.8-10.8) 8.5 K/UL (4.8-10.8) Red Blood Count 2.60 M/UL (4.70-6.10) L 3.32 M/UL (4.70-6.10) L Hemoglobin 7.7 G/DL (14.2-18.0) L 9.8 G/DL (14.2-18.0) L Hematocrit 24.5 % (42.0-52.0) L 30.7 % (42.0-52.0) L Mean Corpuscular Volume 94 FL (80-99) 92 FL (80-99) Mean Corpuscular Hemoglobin 29.7 PG (27.0-31.0) 29.6 PG (27.0-31.0) Mean Corpuscular Hemoglobin Concent 31.5 G/DL (32.0-36.0) L 32.1 G/DL (32.0-36.0) Red Cell Distribution Width 14.4 % (11.6-14.8) 14.7 % (11.6-14.8) Platelet Count 151 K/UL (150-450) 150 K/UL (150-450) Mean Platelet Volume 6.1 FL (6.5-10.1) L 7.2 FL (6.5-10.1) Neutrophils (%) (Auto) % (45.0-75.0) 80.5 % (45.0-75.0) H Lymphocytes (%) (Auto) % (20.0-45.0) 8.5 % (20.0-45.0) L Monocytes (%) (Auto) % (1.0-10.0) 6.5 % (1.0-10.0) Eosinophils (%) (Auto) % (0.0-3.0) 3.1 % (0.0-3.0) H Basophils (%) (Auto) % (0.0-2.0) 1.3 % (0.0-2.0) Differential Total Cells Counted 100 Neutrophils % (Manual) 81 % (45-75) H Lymphocytes % (Manual) 11 % (20-45) L Monocytes % (Manual) 5 % (1-10) Eosinophils % (Manual) 2 % (0-3) Basophils % (Manual) 1 % (0-2) Band Neutrophils 0 % (0-8) Platelet Estimate Adequate Platelet Morphology Normal Hypochromasia 3+ Anisocytosis 1+ Prothrombin Time 13.7 SEC (9.30-11.50) H Prothromb Time International Ratio 1.3 (0.9-1.1) H Sodium Level 134 mEQ/L (135-145) L Potassium Level 3.9 mEQ/L (3.4-4.9) Chloride Level 95 mEQ/L (98-107) L Carbon Dioxide Level 31 mEQ/L (20-30) H Anion Gap 8 (5-15) Blood Urea Nitrogen 14 mg/dL (7-23) Creatinine 1.2 mg/dL (0.7-1.2) Estimat Glomerular Filtration Rate > 60 mL/min (>60) Glucose Level 99 mg/dL (74-106) Calcium Level 8.9 mg/dL (8.6-10.2) Intake and Output 12/26/16 12/27/16 19:00 07:00 Intake Total 600 ml 980 ml Output Total 600 ml 650 ml Balance 0 ml 330 ml Intake Oral 600 ml 480 ml Blood Product 500 ml Output Urine Total 600 ml 650 ml # Voids 3 Objective General Appearance: WD/WN, no apparent distress, alert EENT: PERRL/EOMI, normal ENT inspection, TMs normal Neck: non-tender, normal alignment, supple Cardiovascular: normal peripheral pulses, normal rate, regular rhythm, no gallop/murmur, no JVD Respiratory/Chest: chest wall non-tender, lungs clear, normal breath sounds, no respiratory distress, no accessory muscle use Abdomen: normal bowel sounds, non tender, soft, no organomegaly, no mass Edema: trace edema 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 normal pigmentation Assessment/Plan Problem List: (1) Mural thrombus of left ventricular apex Assessment & Plan: Possible thrombus. See cardiology note. Continue coumadin ; D/C lovenox per cardiology (2) Tricuspid insufficiency Assessment & Plan: S/P annuloplasty 11/21/16 at [facility] (3) chest pain Assessment & Plan: See cardiology note. (4) CHF (congestive heart failure) Assessment & Plan: See cardiology note. Cont lasix (5) Factor V Leiden Assessment & Plan: Continue lovenox until coumadin therapeutic. (6) Cerebral vascular disease (7) Pacemaker (8) History of DVT (deep vein thrombosis) (9) Cardiomyopathy (10) Hematoma complicating a procedure Assessment & Plan: Pacemaker-see cardiology discussion concerning anticoagulation Status: not improved Assessment/Plan Await INR to be therapeutic, then D/C to [facility] ISAIAS ORTIZ Dec 27, 2016 12:39
[2016-12-27 15:46] VITALS: BP 116/73
[2016-12-27] MEDS ORDERED: Warfarin Sodium 7.5mg ORAL ONE (17:00)
[2016-12-27] MEDS ORDERED: Tubing Blood Filter IV ONE (17:07)
[2016-12-27] MEDS ORDERED: NS 275ml ONE (17:07)
--- NOTE | 2016-12-27 18:36 | Pulmonology Progress Note ---
Assessment/Plan Problems: (1) Chest wall pain following surgery (2) COPD (chronic obstructive pulmonary disease) (3) Cardiomyopathy Assessment/Plan pain better controlled with dilaudid Q3 adjust pain meds titrate cardiac meds all note reviewed med/surg floor dc planning soon Subjective ROS Limited/Unobtainable: No Constitutional: Reports: no symptoms HEENT: Repors: no symptoms Respiratory: Reports: no symptoms Allergies: Coded Allergies: DABIGATRAN ETEXILATE (Unverified Allergy, Unknown, 12/21/16) KETOROLAC (Verified Allergy, Unknown, 11/17/11) KETOROLAC TROMETHAMINE (Unverified Allergy, Unknown, 02/05/16) UNK MORPHINE (Verified Allergy, Unknown, 11/17/11) Objective Last 24 Hour Vital Signs Date Time Temp Pulse Resp B/P Pulse Ox O2 Delivery O2 Flow Rate FiO2 12/27/16 15:46 97.9 84 20 116/73 98 Nasal Cannula 2.0 12/27/16 15:41 97.7 12/27/16 11:56 97.7 80 20 124/65 98 Room Air 12/27/16 08:02 97.7 80 20 126/73 98 Nasal Cannula 2.0 12/27/16 07:52 Nasal Cannula 3.0 32 12/27/16 07:51 100 Nasal Cannula 3.0 32 12/27/16 07:50 80 18 Nasal Cannula 3.0 32 12/27/16 03:47 97.3 80 18 123/73 97 Nasal Cannula 3.0 12/26/16 23:36 98.1 80 18 107/64 100 Nasal Cannula 3.0 12/26/16 20:00 98.6 80 18 107/62 97 Nasal Cannula 3.0 12/26/16 19:21 85 18 Nasal Cannula 3.0 32 12/26/16 19:21 98 Nasal Cannula 2.0 28 12/26/16 19:21 Nasal Cannula 2.0 28 Intake and Output 12/26/16 12/27/16 19:00 07:00 Intake Total 600 ml 980 ml Output Total 600 ml 650 ml Balance 0 ml 330 ml Intake Oral 600 ml 480 ml Blood Product 500 ml Output Urine Total 600 ml 650 ml # Voids 3 General Appearance: WD/WN HEENT: normocephalic Respiratory/Chest: chest wall non-tender, lungs clear Cardiovascular: normal peripheral pulses Abdomen: normal bowel sounds, no organomegaly, no scars Genitourinary: normal external genitalia Extremities: no cyanosis Laboratory Tests 12/27/16 08:35: White Blood Count 8.5, Red Blood Count 3.32L, Hemoglobin 9.8L, Hematocrit 30.7L , Mean Corpuscular Volume 92, Mean Corpuscular Hemoglobin 29.6, Mean Corpuscular Hemoglobin Concent 32.1, Red Cell Distribution Width 14.7, Platelet Count 150, Mean Platelet Volume 7.2, Neutrophils (%) (Auto) 80.5H, Lymphocytes ( %) (Auto) 8.5L, Monocytes (%) (Auto) 6.5, Eosinophils (%) (Auto) 3.1H, Basophils (%) (Auto) 1.3, Prothrombin Time 13.7H, Prothromb Time International Ratio 1.3H, Sodium Level 134L, Potassium Level 3.9, Chloride Level 95L, Carbon Dioxide Level 31H, Anion Gap 8, Blood Urea Nitrogen 14, Creatinine 1.2, Estimat Glomerular Filtration Rate > 60, Glucose Level 99, Calcium Level 8.9 Current Medications Medications (Trade) Dose Ordered Sig/Ana Route PRN Reason Start Time Stop Time Status Last Admin Dose Admin Acetaminophen (Tylenol) 650 mg Q4H PRN ORAL T>100.5 12/25/16 22:30 01/24/17 22:29 Albuterol/ Ipratropium (DuoNeb 0.5-3(2.5)mg/3ml) 3 ml Q4H PRN HHN Shortness of Breath 12/25/16 22:30 12/30/16 22:29 Amiodarone HCl (Cordarone) 200 mg EVERY 12 HOURS ORAL 12/25/16 21:00 01/24/17 20:59 12/27/16 10:09 Aspirin (Ecotrin) 325 mg DAILY ORAL 12/26/16 09:00 01/25/17 08:59 12/27/16 10:10 Cephalexin (Keflex) 500 mg EVERY 8 HOURS ORAL 12/25/16 22:00 12/27/16 23:59 12/27/16 14:36 Chlorhexidine Gluconate (Tara-Hex 2%) 1 applic DAILY TOPIC 12/26/16 09:00 01/25/17 08:59 12/27/16 09:19 Dextrose (Dextrose 50%) STAT PRN IV Hypoglycemia 12/26/16 06:30 01/25/17 06:29 Furosemide (Lasix) 40 mg EVERY 12 HOURS ORAL 12/25/16 21:00 01/24/17 20:59 12/27/16 10:09 Hydromorphone HCl (Dilaudid) 2.5 mg EVERY 3 HOURS PRN IVP pain 7-10 12/26/16 21:00 01/02/17 20:59 12/27/16 15:11 Lorazepam (Ativan) 0.5 mg Q8H PRN ORAL For Anxiety 12/25/16 21:15 01/01/17 21:14 12/27/16 10:08 Magnesium Oxide (Mag-Ox 400mg) 400 mg THREE TIMES A DAY ORAL 12/26/16 09:00 01/25/17 08:59 12/27/16 17:07 Multi-Ingredient Ointment (Eucerin) 1 applic DAILY TOPIC 12/26/16 09:00 01/25/17 08:59 12/27/16 09:19 Ondansetron HCl (Zofran) 4 mg Q6H PRN IVP Nausea & Vomiting 12/26/16 00:30 01/25/17 00:29 Oxycodone/ Acetaminophen (Percocet 5-325) 1 tab Q4H PRN ORAL Moderate Pain (Pain Scale 4-6) 12/25/16 23:15 01/01/17 23:14 Pantoprazole (Protonix) 40 mg DAILY ORAL 12/26/16 09:00 01/25/17 08:59 12/27/16 10:09 Polyethylene Glycol (Miralax) 17 gm DAILYPRN PRN ORAL Constipation 12/26/16 06:30 01/25/17 06:29 Temazepam (Restoril) 15 mg HSPRN PRN ORAL Insomnia 12/25/16 21:00 01/01/17 20:59 Vitamin A/Vitamin D (A & D Oint) 1 applic EVERY 12 HOURS TOPIC 12/25/16 21:00 01/24/17 20:59 12/27/16 10:11 Warfarin Sodium (Coumadin per pharmacy) 1 ea DAILY PRN MISC PER RX PROTOCOL 12/26/16 09:00 01/25/17 08:59 BLAKE SHETTY Dec 27, 2016 18:36
[2016-12-27 20:53] VITALS: BP 120/66
[2016-12-28 00:32] VITALS: BP 144/92
[2016-12-28 04:41] VITALS: BP 121/69
[2016-12-28] MEDS: LORazepam 0.5mg tab ORAL PRN ×2 (05:59→18:11)
[2016-12-28 07:29] LABS: ANION GAP 11 (5-15); CALCIUM 9.2 mg/dL (8.6-10.2); CARBON DIOXIDE 30 mEQ/L (20-30); CHLORIDE 96 mEQ/L (98-107); CREATININE 1.1 mg/dL (0.7-1.2); GLOMERULAR FILTRATION RATE > 60 mL/min (>60); HEMOLYSIS 3; SODIUM 137 mEQ/L (135-145)
[2016-12-28 07:34] LABS: BASOPHILS % (AUTO) 0.7 % (0.0-2.0); EOSINOPHILS % (AUTO) 2.7 % (0.0-3.0); LYMPHOCYTES % (AUTO) 9.2 % (20.0-45.0); MEAN CORPUSCULAR HEMOGLOBIN 30.9 PG (27.0-31.0); MEAN CORPUSCULAR VOLUME 94 FL (80-99); MEAN PLATELET VOLUME 7.5 FL (6.5-10.1); MONOCYTES % (AUTO) 5.6 % (1.0-10.0); NEUTROPHILS % (AUTO) 81.9 % (45.0-75.0); PLATELET COUNT 157 K/UL (150-450); RED BLOOD COUNT 3.17 M/UL (4.70-6.10); RED CELL DISTRIBUTION WIDTH 15.1 % (11.6-14.8); WHITE BLOOD COUNT 9.1 K/UL (4.8-10.8)
[2016-12-28 07:40] LABS: INR 1.5 (0.9-1.1); PROTHROMBIN TIME 15.4 SEC (9.30-11.50)
[2016-12-28 07:52] VITALS: BP 129/71
[2016-12-28] MEDS: Eucerin Cream 15gm TOPIC SCH (08:09)
[2016-12-28] MEDS: Vitamin A&D Oint 2oz Tube TOPIC SCH ×2 (08:09→20:34)
[2016-12-28] MEDS: Furosemide 40mg tab ORAL SCH ×2 (08:09→20:34)
[2016-12-28] MEDS: Dyna-Hex 2% Top Sol 8oz TOPIC SCH (08:09)
[2016-12-28] MEDS: Magnesium Oxide 400mg tab ORAL SCH ×3 (08:09→17:24)
[2016-12-28] MEDS: Amiodarone 200mg tab ORAL SCH ×2 (08:09→20:34)
[2016-12-28] MEDS: Aspirin EC 325mg tab ORAL SCH (08:09)
--- NOTE | 2016-12-28 08:48 | General Progress Note ---
Assessment/Plan Assessment/Plan (1) Chest wall pain following surgery (2) S/P Tricuspid valve replacement (3) Congestive heart failure (4) COPD (chronic obstructive pulmonary disease) (5) Lumbar DDD (6) Lumbar Spondylosis (7) Lumbar Radiculopathy Patient will be continued on Dilaudid and Percocet. Pt was d/w Dr. Mota and he concurred. Subjective Date patient seen: Dec 28, 2016 Time patient seen: 07:30 - am Allergies: Coded Allergies: DABIGATRAN ETEXILATE (Unverified Allergy, Unknown, 12/21/16) KETOROLAC (Verified Allergy, Unknown, 11/17/11) KETOROLAC TROMETHAMINE (Unverified Allergy, Unknown, 02/05/16) UNK MORPHINE (Verified Allergy, Unknown, 11/17/11) Subjective Constitutional: Reports: weakness HEENT: Reports: no symptoms Cardiovascular: Reports: chest pain Respiratory: Reports: shortness of breath Gastrointestinal/Abdominal: Reports: no symptoms Genitourinary: Reports: no symptoms Neurologic/Psychiatric: Reports: weakness Endocrine: Reports: no symptoms Hematologic/Lymphatic: Reports: no symptoms Subjective: He says that the pain has been reducing and tolerated well on the Dilaudid. Patient reports that the Pain is reduced from an 8/10 to a 3/10 on the Dilaudid. Objective Last 24 Hour Vital Signs Date Time Temp Pulse Resp B/P Pulse Ox O2 Delivery O2 Flow Rate FiO2 12/28/16 07:52 98.2 80 19 129/71 98 Nasal Cannula 3.0 12/28/16 04:41 97.9 81 20 121/69 100 Room Air 12/28/16 00:32 97.7 99 19 144/92 96 Room Air 12/27/16 20:53 97.7 80 20 120/66 100 Room Air 12/27/16 19:48 82 18 Nasal Cannula 3.0 32 12/27/16 19:48 Nasal Cannula 3.0 32 12/27/16 19:48 96 Nasal Cannula 3.0 32 12/27/16 19:22 97.9 12/27/16 15:46 97.9 84 20 116/73 98 Nasal Cannula 2.0 12/27/16 11:56 97.7 80 20 124/65 98 Room Air Intake and Output 12/27/16 12/28/16 19:00 07:00 Intake Total 360 ml Output Total 400 ml Balance -40 ml Intake Oral 360 ml Output Urine Total 400 ml # Voids 5 # Bowel Movements 2 Laboratory Tests 12/28/16 05:30: White Blood Count 9.1, Red Blood Count 3.17L, Hemoglobin 9.8L, Hematocrit 29.7L , Mean Corpuscular Volume 94, Mean Corpuscular Hemoglobin 30.9, Mean Corpuscular Hemoglobin Concent 33.0, Red Cell Distribution Width 15.1H, Platelet Count 157, Mean Platelet Volume 7.5, Neutrophils (%) (Auto) 81.9H, Lymphocytes (%) (Auto) 9.2L, Monocytes (%) (Auto) 5.6, Eosinophils (%) (Auto) 2.7, Basophils (%) (Auto) 0.7, Prothrombin Time 15.4H, Prothromb Time International Ratio 1.5H, Sodium Level 137, Potassium Level 4.0, Chloride Level 96L, Carbon Dioxide Level 30, Anion Gap 11, Blood Urea Nitrogen 14, Creatinine 1.1, Estimat Glomerular Filtration Rate > 60, Glucose Level 105, Calcium Level 9.2 Height (Feet): 6 Height (Inches): 1.00 Weight (Pounds): 205 Objective General Appearance: no apparent distress, alert EENT: PERRL/EOMI, normal ENT inspection Neck: supple, normal inspection Cardiovascular: pacemaker/AICD Respiratory/Chest: decreased breath sounds Abdomen: soft, no organomegaly Extremities: swelling Edema: 1+ Generalized Neurologic: alert, oriented x 3 Skin: warm/dry HILTON CABRALES Dec 28, 2016 08:48
--- NOTE | 2016-12-28 15:10 | Internal Med Progress Note ---
Subjective Physician Name Claudio Michel Attending Physician Claudio Michel MD Current Medications Medications (Trade) Dose Ordered Sig/Ana Route PRN Reason Start Time Stop Time Status Last Admin Dose Admin Acetaminophen (Tylenol) 650 mg Q4H PRN ORAL T>100.5 12/25/16 22:30 01/24/17 22:29 Albuterol/ Ipratropium (DuoNeb 0.5-3(2.5)mg/3ml) 3 ml Q4H PRN HHN Shortness of Breath 12/25/16 22:30 12/30/16 22:29 Amiodarone HCl (Cordarone) 200 mg EVERY 12 HOURS ORAL 12/25/16 21:00 01/24/17 20:59 12/28/16 08:09 Aspirin (Ecotrin) 325 mg DAILY ORAL 12/26/16 09:00 01/25/17 08:59 12/28/16 08:09 Chlorhexidine Gluconate (Tara-Hex 2%) 1 applic DAILY TOPIC 12/26/16 09:00 01/25/17 08:59 12/28/16 08:09 Dextrose (Dextrose 50%) STAT PRN IV Hypoglycemia 12/26/16 06:30 01/25/17 06:29 Furosemide (Lasix) 40 mg EVERY 12 HOURS ORAL 12/25/16 21:00 01/24/17 20:59 12/28/16 08:09 Hydromorphone HCl (Dilaudid) 2.5 mg EVERY 3 HOURS PRN IVP pain 7-10 12/26/16 21:00 01/02/17 20:59 12/28/16 13:01 Lorazepam (Ativan) 0.5 mg Q8H PRN ORAL For Anxiety 12/25/16 21:15 01/01/17 21:14 12/28/16 05:59 Magnesium Oxide (Mag-Ox 400mg) 400 mg THREE TIMES A DAY ORAL 12/26/16 09:00 01/25/17 08:59 12/28/16 13:00 Multi-Ingredient Ointment (Eucerin) 1 applic DAILY TOPIC 12/26/16 09:00 01/25/17 08:59 12/28/16 08:09 Ondansetron HCl (Zofran) 4 mg Q6H PRN IVP Nausea & Vomiting 12/26/16 00:30 01/25/17 00:29 Oxycodone/ Acetaminophen (Percocet 5-325) 1 tab Q4H PRN ORAL Moderate Pain (Pain Scale 4-6) 12/25/16 23:15 01/01/17 23:14 Pantoprazole (Protonix) 40 mg DAILY ORAL 12/26/16 09:00 01/25/17 08:59 12/28/16 08:09 Polyethylene Glycol (Miralax) 17 gm DAILYPRN PRN ORAL Constipation 12/26/16 06:30 01/25/17 06:29 12/28/16 10:04 Temazepam (Restoril) 15 mg HSPRN PRN ORAL Insomnia 12/25/16 21:00 01/01/17 20:59 Vitamin A/Vitamin D (A & D Oint) 1 applic EVERY 12 HOURS TOPIC 12/25/16 21:00 01/24/17 20:59 12/28/16 08:09 Warfarin Sodium (Coumadin per pharmacy) 1 ea DAILY PRN MISC PER RX PROTOCOL 12/26/16 09:00 01/25/17 08:59 Warfarin Sodium (Coumadin) 4 mg COUMADIN ONCE PO 12/28/16 17:00 12/28/16 17:01 Warfarin Sodium (Coumadin) 5 mg COUMADIN ONCE ORAL 12/28/16 17:00 12/28/16 17:01 Allergies: Coded Allergies: DABIGATRAN ETEXILATE (Unverified Allergy, Unknown, 12/21/16) KETOROLAC (Verified Allergy, Unknown, 11/17/11) KETOROLAC TROMETHAMINE (Unverified Allergy, Unknown, 02/05/16) UNK MORPHINE (Verified Allergy, Unknown, 11/17/11) Subjective awake, alert, responsive, NAD, No CP or SOB, C/O chest wall tenderness around pacemaker, No BM X 2 days, constipated Objective Last Vital Signs Date Time Temp Pulse Resp B/P Pulse Ox O2 Delivery O2 Flow Rate FiO2 12/28/16 13:31 98.2 12/28/16 08:30 81 20 Nasal Cannula 3.0 32 12/28/16 08:30 98 12/28/16 07:52 129/71 Laboratory Tests Test 12/28/16 05:30 White Blood Count 9.1 K/UL (4.8-10.8) Red Blood Count 3.17 M/UL (4.70-6.10) L Hemoglobin 9.8 G/DL (14.2-18.0) L Hematocrit 29.7 % (42.0-52.0) L Mean Corpuscular Volume 94 FL (80-99) Mean Corpuscular Hemoglobin 30.9 PG (27.0-31.0) Mean Corpuscular Hemoglobin Concent 33.0 G/DL (32.0-36.0) Red Cell Distribution Width 15.1 % (11.6-14.8) H Platelet Count 157 K/UL (150-450) Mean Platelet Volume 7.5 FL (6.5-10.1) Neutrophils (%) (Auto) 81.9 % (45.0-75.0) H Lymphocytes (%) (Auto) 9.2 % (20.0-45.0) L Monocytes (%) (Auto) 5.6 % (1.0-10.0) Eosinophils (%) (Auto) 2.7 % (0.0-3.0) Basophils (%) (Auto) 0.7 % (0.0-2.0) Prothrombin Time 15.4 SEC (9.30-11.50) H Prothromb Time International Ratio 1.5 (0.9-1.1) H Sodium Level 137 mEQ/L (135-145) Potassium Level 4.0 mEQ/L (3.4-4.9) Chloride Level 96 mEQ/L (98-107) L Carbon Dioxide Level 30 mEQ/L (20-30) Anion Gap 11 (5-15) Blood Urea Nitrogen 14 mg/dL (7-23) Creatinine 1.1 mg/dL (0.7-1.2) Estimat Glomerular Filtration Rate > 60 mL/min (>60) Glucose Level 105 mg/dL (74-106) Calcium Level 9.2 mg/dL (8.6-10.2) Intake and Output 12/27/16 12/28/16 19:00 07:00 Intake Total 360 ml Output Total 400 ml Balance -40 ml Intake Oral 360 ml Output Urine Total 400 ml # Voids 5 # Bowel Movements 2 Objective General: No acute distress, awake and alert HEENT: NCAT, sclera anicteric, PERRL, EOMI. Neck: Supple, no significant jugular venous distention. Lungs: Good inspiratory effort, no accessory muscle use, clear to auscultation bilaterally, no Wheeze or Rales. Heart: Regular rate and rhythm, normal S1/S2, no murmurs, Left ICD tender / swollen.. Abdomen: soft, nontender, nondistended. Normoactive bowel sounds. / Rectal: Refused and deferred. Extremities: No Cyanosis , clubbing or edema. Bilateral LE's +2 edema Neuro: A&O x 3, Able to move all extremities Skin: warm, no rashes or lesions Psych: Normal mood and affect Assessment/Plan Assessment/Plan 1. Congestive heart failure. 2. Questionable apical left ventricular thrombus / LV thrombus 3. Factor V Leiden deficiency, off anticoagulation due to removal of atrial leads on the 12/15/2016. 4. Recent tricuspid annuloplasty repair with a 30 Chadwick-Castanon pericardial valve. 5. Tamponade status post pericardial window. 6. Permanent pacemaker implantable cardioversion defibrillator implantation with atrial leads, redo recently. 7. Pleural effusion status post thoracentesis possibly. 8. Ischemic cardiomyopathy. 9. History of cerebrovascular accident. 10. History of inferior vena cava filter placement. 11. Renal insufficiency history. 12. Anemia 13. Eliquis intolerance 14. Hematoma Vs. Abscess around ICD. Plan: monitor labs stool for OOB on Coumadin PT Mobility Full code F/U with cardiology recommendations CT chest today Refused to go home now wants to go to SNF Mg Citrate po Claudio Michel MD Dec 28, 2016 15:10
[2016-12-28] MEDS ORDERED: Magnesium Citrate Liq Btl ORAL ONE (16:30)
[2016-12-28] MEDS ORDERED: Warfarin Sodium 4mg PO ONE (17:00)
[2016-12-28] MEDS ORDERED: Warfarin Sodium 5mg ORAL ONE (17:00)
[2016-12-28 19:54] VITALS: BP 119/65
--- NOTE | 2016-12-28 20:22 | Cardiology Progress Note ---
Assessment/Plan Assessment/Plan 1. Congestive heart failure. 2. Questionable apical left ventricular thrombus. 3. Factor V Leiden deficiency, off anticoagulation due to removal of atrial leads on the 12/15/2016. 4. Recent tricuspid annuloplasty repair with a 30 Chadwick-Castanon pericardial valve. 5. Tamponade status post pericardial window. 6. Permanent pacemaker implantable cardioversion defibrillator implantation with atrial leads removal and redo 12/14 7. Pleural effusion status post thoracentesis possibly. 8. Ischemic cardiomyopathy. 9. History of cerebrovascular accident. 10. History of inferior vena cava filter placement. 11. Renal insufficiency history. 12. anemia with acute drop in h/h 13. ? LV thrombus 14. Eliquis intolerance 15. peripacer hematoma ? off anticoagulation with lmwh due to hematoma on the pacer jsut on couamdin inr 1.5 today bp is ok on lasix to daily hematoma not look bigger ct paln noted doubt infection not febrile will decrease ecotrin for now Subjective Cardiovascular: Reports: chest pain, Denies: lightheadedness Respiratory: Denies: shortness of breath Gastrointestinal/Abdominal: Denies: abdominal pain Subjective breathign is better Objective Last 24 Hour Vital Signs Date Time Temp Pulse Resp B/P Pulse Ox O2 Delivery O2 Flow Rate FiO2 12/28/16 19:54 96.5 81 20 119/65 99 Room Air 12/28/16 19:48 98.2 12/28/16 08:30 81 20 Nasal Cannula 3.0 32 12/28/16 08:30 Nasal Cannula 3.0 32 12/28/16 08:30 98 Nasal Cannula 3.0 32 12/28/16 07:52 98.2 80 19 129/71 98 Nasal Cannula 3.0 12/28/16 04:41 97.9 81 20 121/69 100 Room Air 12/28/16 00:32 97.7 99 19 144/92 96 Room Air 12/27/16 20:53 97.7 80 20 120/66 100 Room Air General Appearance: alert Neck: supple Cardiovascular: normal rate, regular rhythm, other - pacer site unchanged Respiratory/Chest: lungs clear, normal breath sounds Abdomen: normal bowel sounds, non tender, soft Extremities: no swelling Intake and Output 12/27/16 12/28/16 19:00 07:00 Intake Total 360 ml Output Total 400 ml Balance -40 ml Intake Oral 360 ml Output Urine Total 400 ml # Voids 5 # Bowel Movements 2 Laboratory Tests Test 12/28/16 05:30 White Blood Count 9.1 K/UL (4.8-10.8) Red Blood Count 3.17 M/UL (4.70-6.10) L Hemoglobin 9.8 G/DL (14.2-18.0) L Hematocrit 29.7 % (42.0-52.0) L Mean Corpuscular Volume 94 FL (80-99) Mean Corpuscular Hemoglobin 30.9 PG (27.0-31.0) Mean Corpuscular Hemoglobin Concent 33.0 G/DL (32.0-36.0) Red Cell Distribution Width 15.1 % (11.6-14.8) H Platelet Count 157 K/UL (150-450) Mean Platelet Volume 7.5 FL (6.5-10.1) Neutrophils (%) (Auto) 81.9 % (45.0-75.0) H Lymphocytes (%) (Auto) 9.2 % (20.0-45.0) L Monocytes (%) (Auto) 5.6 % (1.0-10.0) Eosinophils (%) (Auto) 2.7 % (0.0-3.0) Basophils (%) (Auto) 0.7 % (0.0-2.0) Prothrombin Time 15.4 SEC (9.30-11.50) H Prothromb Time International Ratio 1.5 (0.9-1.1) H Sodium Level 137 mEQ/L (135-145) Potassium Level 4.0 mEQ/L (3.4-4.9) Chloride Level 96 mEQ/L (98-107) L Carbon Dioxide Level 30 mEQ/L (20-30) Anion Gap 11 (5-15) Blood Urea Nitrogen 14 mg/dL (7-23) Creatinine 1.1 mg/dL (0.7-1.2) Estimat Glomerular Filtration Rate > 60 mL/min (>60) Glucose Level 105 mg/dL (74-106) Calcium Level 9.2 mg/dL (8.6-10.2) [place] ALVAREZ Dec 28, 2016 20:22
[2016-12-28] MEDS ORDERED: Relistor 12mg/0.6ml Vial SUBQ SCH (21:00)
--- NOTE | 2016-12-28 22:45 | Pulmonology Progress Note ---
Assessment/Plan Problems: (1) Chest wall pain following surgery (2) COPD (chronic obstructive pulmonary disease) (3) Cardiomyopathy Assessment/Plan pain better controlled with dilaudid Q3 adjust pain meds titrate cardiac meds all note reviewed med/surg floor dc planning soon Subjective Allergies: Coded Allergies: DABIGATRAN ETEXILATE (Unverified Allergy, Unknown, 12/21/16) KETOROLAC (Verified Allergy, Unknown, 11/17/11) KETOROLAC TROMETHAMINE (Unverified Allergy, Unknown, 02/05/16) UNK MORPHINE (Verified Allergy, Unknown, 11/17/11) Objective Last 24 Hour Vital Signs Date Time Temp Pulse Resp B/P Pulse Ox O2 Delivery O2 Flow Rate FiO2 12/28/16 20:26 96 Nasal Cannula 3.0 32 12/28/16 20:26 Nasal Cannula 3.0 32 12/28/16 20:25 80 18 Nasal Cannula 3.0 32 12/28/16 19:54 96.5 81 20 119/65 99 Room Air 12/28/16 19:48 98.2 12/28/16 08:30 81 20 Nasal Cannula 3.0 32 12/28/16 08:30 Nasal Cannula 3.0 32 12/28/16 08:30 98 Nasal Cannula 3.0 32 12/28/16 07:52 98.2 80 19 129/71 98 Nasal Cannula 3.0 12/28/16 04:41 97.9 81 20 121/69 100 Room Air 12/28/16 00:32 97.7 99 19 144/92 96 Room Air Intake and Output 12/27/16 12/28/16 19:00 07:00 Intake Total 360 ml Output Total 400 ml Balance -40 ml Intake Oral 360 ml Output Urine Total 400 ml # Voids 5 # Bowel Movements 2 Laboratory Tests 12/28/16 05:30: White Blood Count 9.1, Red Blood Count 3.17L, Hemoglobin 9.8L, Hematocrit 29.7L , Mean Corpuscular Volume 94, Mean Corpuscular Hemoglobin 30.9, Mean Corpuscular Hemoglobin Concent 33.0, Red Cell Distribution Width 15.1H, Platelet Count 157, Mean Platelet Volume 7.5, Neutrophils (%) (Auto) 81.9H, Lymphocytes (%) (Auto) 9.2L, Monocytes (%) (Auto) 5.6, Eosinophils (%) (Auto) 2.7, Basophils (%) (Auto) 0.7, Prothrombin Time 15.4H, Prothromb Time International Ratio 1.5H, Sodium Level 137, Potassium Level 4.0, Chloride Level 96L, Carbon Dioxide Level 30, Anion Gap 11, Blood Urea Nitrogen 14, Creatinine 1.1, Estimat Glomerular Filtration Rate > 60, Glucose Level 105, Calcium Level 9.2 Current Medications Medications (Trade) Dose Ordered Sig/Ana Route PRN Reason Start Time Stop Time Status Last Admin Dose Admin Acetaminophen (Tylenol) 650 mg Q4H PRN ORAL T>100.5 12/25/16 22:30 01/24/17 22:29 Albuterol/ Ipratropium (DuoNeb 0.5-3(2.5)mg/3ml) 3 ml Q4H PRN HHN Shortness of Breath 12/25/16 22:30 12/30/16 22:29 Amiodarone HCl (Cordarone) 200 mg EVERY 12 HOURS ORAL 12/25/16 21:00 01/24/17 20:59 12/28/16 20:34 Aspirin (Ecotrin) 81 mg DAILY ORAL 12/29/16 09:00 01/28/17 08:59 Chlorhexidine Gluconate (Tara-Hex 2%) 1 applic DAILY TOPIC 12/26/16 09:00 01/25/17 08:59 12/28/16 08:09 Dextrose (Dextrose 50%) STAT PRN IV Hypoglycemia 12/26/16 06:30 01/25/17 06:29 Furosemide (Lasix) 40 mg EVERY 12 HOURS ORAL 12/25/16 21:00 01/24/17 20:59 12/28/16 20:34 Hydromorphone HCl (Dilaudid) 2.5 mg EVERY 3 HOURS PRN IVP pain 712/26/16 21:00 01/02/17 20:59 12/28/16 19:07 Lorazepam (Ativan) 0.5 mg Q8H PRN ORAL For Anxiety 12/25/16 21:15 01/01/17 21:14 12/28/16 18:11 Magnesium Oxide (Mag-Ox 400mg) 400 mg THREE TIMES A DAY ORAL 12/26/16 09:00 01/25/17 08:59 12/28/16 17:24 Methylnaltrexone Eldred (Relistor) 12 mg QOD@2100 SUBQ 12/28/16 21:00 01/27/17 20:59 12/28/16 20:34 Multi-Ingredient Ointment (Eucerin) 1 applic DAILY TOPIC 12/26/16 09:00 01/25/17 08:59 12/28/16 08:09 Ondansetron HCl (Zofran) 4 mg Q6H PRN IVP Nausea & Vomiting 12/26/16 00:30 01/25/17 00:29 Oxycodone/ Acetaminophen (Percocet 5-325) 1 tab Q4H PRN ORAL Moderate Pain (Pain Scale 4-6) 12/25/16 23:15 01/01/17 23:14 Pantoprazole (Protonix) 40 mg DAILY ORAL 12/26/16 09:00 01/25/17 08:59 12/28/16 08:09 Polyethylene Glycol (Miralax) 17 gm DAILYPRN PRN ORAL Constipation 12/26/16 06:30 01/25/17 06:29 12/28/16 10:04 Temazepam (Restoril) 15 mg HSPRN PRN ORAL Insomnia 12/25/16 21:00 01/01/17 20:59 Vitamin A/Vitamin D (A & D Oint) 1 applic EVERY 12 HOURS TOPIC 12/25/16 21:00 01/24/17 20:59 12/28/16 20:34 Warfarin Sodium (Coumadin per pharmacy) 1 ea DAILY PRN MISC PER RX PROTOCOL 12/26/16 09:00 01/25/17 08:59 BLAKE SHETTY Dec 28, 2016 22:45
[2016-12-29 00:09] VITALS: BP 137/73
[2016-12-29 04:18] VITALS: BP 135/69
[2016-12-29] MEDS: LORazepam 0.5mg tab ORAL PRN ×2 (05:46→17:28)
[2016-12-29 07:28] LABS: PHOSPHORUS 3.6 mg/dL (2.5-4.8)
--- NOTE | 2016-12-29 08:02 | Pulmonology Progress Note ---
Assessment/Plan Assessment/Plan ASSESSMENT Congestive heart failure. Possible apical left ventricular thrombus. Factor V Leiden deficiency, off anticoagulation due to removal of atrial leads on the 12/15/2016. Recent tricuspid annuloplasty repair Chest wall pain/postop pain Tamponade , status post pericardial window. AICD , redone recently. Multiloculated moderate R pleural effusion Ischemic cardiomyopathy. moderate pulmonary HTN valvular heart disease: moderate AR, moderate TR, mdoerate MR History of cerebrovascular accident. History of inferior vena cava filter placement. Acute anemia Renal insufficiency history. Eliquis intolerance hypo Mg -resolved PLAN OF CARE MS floor O2 HHN prn pulse oximetry today on RA and arrange O2 for home use if qualified fup CXR Increasing bilateral pleural effusions, particularly on the right. Pleural fluid on the right may be loculated, given the nondependent distribution, although this would be unusual given the rapid development CT chest with evidence of Multiloculated, moderate size right pleural effusion. Left anterior chest wall pacemaker noted. Soft tissue swelling or hematoma surrounding the battery pack noted. IVC filter serial troponin negative, ECG no acute changes, therefore patient was ruled out for acute [place] chest pain is a chest wall pain,reproducible on palpation due to recent open heart surgery cardio follows ECHO this admission with EF 40-45% and RVSP of 52 c/w moderate pulmonary HTN, moderate AR, MR, TR and possible left apical thrombus diuretic monitor renal parameters, I/O, e/lytes Lasix per cardio ( decreased from initial) patient started on a/coagulation with Lovenox and Coumadin to bridge to therapeutic INR , after INR reached therapeutic level, Lovenox dc, currently on Coumadin HH at baseline, anemia workup with low iron and low TIBC intolerant to Eliquis continue ASA, Amiodarone, abx GI prophylaxis pain management, bowel regimen dc plan as per PMD: home with HH vs SNF fup as outpt with cardio and surgeon from [facility] case discussed and evaluated by supervising physician . Subjective Allergies: Coded Allergies: DABIGATRAN ETEXILATE (Unverified Allergy, Unknown, 12/21/16) KETOROLAC (Verified Allergy, Unknown, 11/17/11) KETOROLAC TROMETHAMINE (Unverified Allergy, Unknown, 02/05/16) UNK MORPHINE (Verified Allergy, Unknown, 11/17/11) Subjective reports chest wall pain and edema at the surgical site s/p recent open heart surgery on O2 via NC pulse oximetry stable on Coumadin Objective Last 24 Hour Vital Signs Date Time Temp Pulse Resp B/P Pulse Ox O2 Delivery O2 Flow Rate FiO2 12/29/16 07:18 97.9 12/29/16 04:18 97.9 80 18 135/69 98 Room Air 12/29/16 00:09 96.8 81 20 137/73 98 Room Air 12/28/16 20:26 96 Nasal Cannula 3.0 32 12/28/16 20:26 Nasal Cannula 3.0 32 12/28/16 20:25 80 18 Nasal Cannula 3.0 32 12/28/16 19:54 96.5 81 20 119/65 99 Room Air 12/28/16 08:30 81 20 Nasal Cannula 3.0 32 12/28/16 08:30 Nasal Cannula 3.0 32 12/28/16 08:30 98 Nasal Cannula 3.0 32 Intake and Output 12/28/16 12/29/16 19:00 07:00 Intake Total 480 ml 320 ml Balance 480 ml 320 ml Intake Oral 480 ml 320 ml # Voids 10 # Bowel Movements 1 Objective General Appearance: WD/WN, no acute distress HEENT: normocephalic, atraumatic, anicteric, mucous membranes moist, PERRL Respiratory/Chest: chest wall non-tender, lungs clear, no respiratory distress , old sternal scar healed well , Left upper chest with steri strips, tenderness on palpation around surgical site and moderate edema , no erythema, no drainage Cardiovascular: normal rate, no JVD, edema - +1 BLE Abdomen: normal bowel sounds, soft, non tender, non distended Extremities: other - trace to edema BLE Neurologic/Psychiatric: no motor/sensory deficits, alert, oriented x 3, responsive Lymphatic: no neck adenopathy Musculoskeletal: normal muscle bulk Laboratory Tests 12/29/16 04:00: Phosphorus Level 3.6, Magnesium Level 2.0 Current Medications Medications (Trade) Dose Ordered Sig/Ana Route PRN Reason Start Time Stop Time Status Last Admin Dose Admin Acetaminophen (Tylenol) 650 mg Q4H PRN ORAL T>100.5 12/25/16 22:30 01/24/17 22:29 Albuterol/ Ipratropium (DuoNeb 0.5-3(2.5)mg/3ml) 3 ml Q4H PRN HHN Shortness of Breath 12/25/16 22:30 12/30/16 22:29 Amiodarone HCl (Cordarone) 200 mg EVERY 12 HOURS ORAL 12/25/16 21:00 01/24/17 20:59 12/28/16 20:34 Aspirin (Ecotrin) 81 mg DAILY ORAL 12/29/16 09:00 01/28/17 08:59 Chlorhexidine Gluconate (Tara-Hex 2%) 1 applic DAILY TOPIC 12/26/16 09:00 01/25/17 08:59 12/28/16 08:09 Dextrose (Dextrose 50%) STAT PRN IV Hypoglycemia 12/26/16 06:30 01/25/17 06:29 Furosemide (Lasix) 40 mg EVERY 12 HOURS ORAL 12/25/16 21:00 01/24/17 20:59 12/28/16 20:34 Hydromorphone HCl (Dilaudid) 2.5 mg EVERY 3 HOURS PRN IVP pain 712/26/16 21:00 01/02/17 20:59 12/29/16 06:49 Lorazepam (Ativan) 0.5 mg Q8H PRN ORAL For Anxiety 12/25/16 21:15 01/01/17 21:14 12/29/16 05:46 Magnesium Oxide (Mag-Ox 400mg) 400 mg THREE TIMES A DAY ORAL 12/26/16 09:00 01/25/17 08:59 12/28/16 17:24 Methylnaltrexone Dolph (Relistor) 12 mg QOD@2100 SUBQ 12/28/16 21:00 01/27/17 20:59 12/28/16 20:34 Multi-Ingredient Ointment (Eucerin) 1 applic DAILY TOPIC 12/26/16 09:00 01/25/17 08:59 12/28/16 08:09 Ondansetron HCl (Zofran) 4 mg Q6H PRN IVP Nausea & Vomiting 12/26/16 00:30 01/25/17 00:29 Oxycodone/ Acetaminophen (Percocet 5-325) 1 tab Q4H PRN ORAL Moderate Pain (Pain Scale 4-6) 12/25/16 23:15 01/01/17 23:14 Pantoprazole (Protonix) 40 mg DAILY ORAL 12/26/16 09:00 01/25/17 08:59 12/28/16 08:09 Polyethylene Glycol (Miralax) 17 gm DAILYPRN PRN ORAL Constipation 12/26/16 06:30 01/25/17 06:29 12/28/16 10:04 Temazepam (Restoril) 15 mg HSPRN PRN ORAL Insomnia 12/25/16 21:00 01/01/17 20:59 Vitamin A/Vitamin D (A & D Oint) 1 applic EVERY 12 HOURS TOPIC 12/25/16 21:00 01/24/17 20:59 12/28/16 20:34 Warfarin Sodium (Coumadin per pharmacy) 1 ea DAILY PRN MISC PER RX PROTOCOL 12/26/16 09:00 01/25/17 08:59 Greg ([facility])Katerine NP Dec 29, 2016 08:02
[2016-12-29 08:21] VITALS: BP 118/68
[2016-12-29] MEDS: Magnesium Oxide 400mg tab ORAL SCH ×3 (08:54→17:28)
[2016-12-29] MEDS: Amiodarone 200mg tab ORAL SCH (08:54)
[2016-12-29] MEDS: Furosemide 40mg tab ORAL SCH (08:55)
[2016-12-29] MEDS ORDERED: Aspirin EC 81mg tab ORAL SCH (09:00)
[2016-12-29] MEDS: Eucerin Cream 15gm TOPIC SCH (09:04)
[2016-12-29] MEDS: Vitamin A&D Oint 2oz Tube TOPIC SCH (09:04)
[2016-12-29] MEDS: Dyna-Hex 2% Top Sol 8oz TOPIC SCH (09:08)
[2016-12-29 09:36] LABS: INR 2.2 (0.9-1.1); PROTHROMBIN TIME 23.5 SEC (9.30-11.50)
--- NOTE | 2016-12-29 10:03 | Diagnostic Imaging Report ---
Indication: Dyspnea. Loculated pleural effusions Technique: Continuous helical transaxial imaging of the chest was obtained from the thoracic inlet to the upper abdomen after intravenous nonionic contrast administration. Coronal 2-D reformats were also obtained. Total Dose length Product (DLP): [address] Dose Index Volume (CTDIvol): 0.2, 8.1, 64.9, 25.5 mGy Comparison: none Findings: There are multiple loculated pleural effusions present within the right hemithorax. The single largest component is lateral measuring about 6 x 11 cm. in transverse and AP dimensions and approximately 18 cm in the craniocaudal dimension. Another component in the right lung apex measures 5 x 8 x 9 CM. Components of the loculated pleural effusions may be communicating but is unknown. CT will generally underestimate the degree of septation and loculation which is better appreciated by ultrasound. More typical, free flowing and gravity dependent pleural effusion noted on the left moderate in size. There is associated compressive atelectasis at the left lung base. There is some associated atelectasis at the right lung at the interface of the lung and the loculated effusions. There is evidence of a small pericardial effusion. Pacemaker is present. Aorta shows mural calcification. In terms of the pacemaker the there is a soft tissue rind surrounding the battery pack. This may be a hematoma or edema. Please correlate clinically. There is generalized anasarca with edema the chest wall mostly on the left side. Please correlate clinically. IVC filter is partially seen within the visualized upper abdomen. There is a small amount of ascites present. The spleen is prominent. Impression: Multiloculated, moderate size right pleural effusion. Moderate gravity dependent probably simple left pleural effusion. Associated atelectasis bilaterally. Small pericardial effusion Atherosclerotic disease Left anterior chest wall pacemaker noted. Soft tissue swelling or hematoma surrounding the battery pack noted. Generalized chest wall edema especially on the left side. Probable splenomegaly Mild ascites IVC filter The CT scanner at [facility] is accredited by the [employer] and the scans are performed using dose optimization techniques as appropriate to a performed exam including Automatic Exposure control.
[2016-12-29 11:57] VITALS: BP 127/71
[2016-12-29] MEDS ORDERED: COUMADIN5 MG ORAL (12:48)
--- NOTE | 2016-12-29 12:49 | Internal Med Progress Note ---
Subjective Physician Name Claudio Michel Attending Physician Claudio Michel MD Current Medications Medications (Trade) Dose Ordered Sig/Ana Route PRN Reason Start Time Stop Time Status Last Admin Dose Admin Acetaminophen (Tylenol) 650 mg Q4H PRN ORAL T>100.5 12/25/16 22:30 01/24/17 22:29 Albuterol/ Ipratropium (DuoNeb 0.5-3(2.5)mg/3ml) 3 ml Q4H PRN HHN Shortness of Breath 12/25/16 22:30 12/30/16 22:29 Amiodarone HCl (Cordarone) 200 mg EVERY 12 HOURS ORAL 12/25/16 21:00 01/24/17 20:59 12/29/16 08:54 Aspirin (Ecotrin) 81 mg DAILY ORAL 12/29/16 09:00 01/28/17 08:59 12/29/16 08:54 Chlorhexidine Gluconate (Tara-Hex 2%) 1 applic DAILY TOPIC 12/26/16 09:00 01/25/17 08:59 12/29/16 09:08 Dextrose (Dextrose 50%) STAT PRN IV Hypoglycemia 12/26/16 06:30 01/25/17 06:29 Furosemide (Lasix) 40 mg EVERY 12 HOURS ORAL 12/25/16 21:00 01/24/17 20:59 12/29/16 08:55 Hydromorphone HCl (Dilaudid) 2.5 mg EVERY 3 HOURS PRN IVP pain 7-10 12/26/16 21:00 01/02/17 20:59 12/29/16 10:15 Lorazepam (Ativan) 0.5 mg Q8H PRN ORAL For Anxiety 12/25/16 21:15 01/01/17 21:14 12/29/16 05:46 Magnesium Oxide (Mag-Ox 400mg) 400 mg THREE TIMES A DAY ORAL 12/26/16 09:00 01/25/17 08:59 12/29/16 08:54 Methylnaltrexone [place] (Relistor) 12 mg QOD@2100 SUBQ 12/28/16 21:00 01/27/17 20:59 12/28/16 20:34 Multi-Ingredient Ointment (Eucerin) 1 applic DAILY TOPIC 12/26/16 09:00 01/25/17 08:59 12/29/16 09:04 Ondansetron HCl (Zofran) 4 mg Q6H PRN IVP Nausea & Vomiting 12/26/16 00:30 01/25/17 00:29 Oxycodone/ Acetaminophen (Percocet 5-325) 1 tab Q4H PRN ORAL Moderate Pain (Pain Scale 4-6) 12/25/16 23:15 01/01/17 23:14 Pantoprazole (Protonix) 40 mg DAILY ORAL 12/26/16 09:00 01/25/17 08:59 12/29/16 08:54 Polyethylene Glycol (Miralax) 17 gm DAILYPRN PRN ORAL Constipation 12/26/16 06:30 01/25/17 06:29 12/28/16 10:04 Temazepam (Restoril) 15 mg HSPRN PRN ORAL Insomnia 12/25/16 21:00 01/01/17 20:59 Vitamin A/Vitamin D (A & D Oint) 1 applic EVERY 12 HOURS TOPIC 12/25/16 21:00 01/24/17 20:59 12/29/16 09:04 Warfarin Sodium (Coumadin per pharmacy) 1 ea DAILY PRN MISC PER RX PROTOCOL 12/26/16 09:00 01/25/17 08:59 Allergies: Coded Allergies: DABIGATRAN ETEXILATE (Unverified Allergy, Unknown, 12/21/16) KETOROLAC (Verified Allergy, Unknown, 11/17/11) KETOROLAC TROMETHAMINE (Unverified Allergy, Unknown, 02/05/16) UNK MORPHINE (Verified Allergy, Unknown, 11/17/11) Subjective awake, alert, responsive, NAD, No CP or SOB, C/O chest wall tenderness around pacemaker, feeling okay Objective Last Vital Signs Date Time Temp Pulse Resp B/P Pulse Ox O2 Delivery O2 Flow Rate FiO2 12/29/16 11:57 98.1 81 20 127/71 98 Nasal Cannula 2.0 12/28/16 20:26 32 Laboratory Tests Test 12/29/16 04:00 12/29/16 08:00 Phosphorus Level 3.6 mg/dL (2.5-4.8) Magnesium Level 2.0 mg/dL (1.7-2.5) Prothrombin Time 23.5 SEC (9.30-11.50) H Prothromb Time International Ratio 2.2 (0.9-1.1) H Intake and Output 12/28/16 12/29/16 19:00 07:00 Intake Total 480 ml 320 ml Balance 480 ml 320 ml Intake Oral 480 ml 320 ml # Voids 10 # Bowel Movements 1 Objective General: No acute distress, awake and alert HEENT: NCAT, sclera anicteric, PERRL, EOMI. Neck: Supple, no significant jugular venous distention. Lungs: Good inspiratory effort, no accessory muscle use, clear to auscultation bilaterally, no Wheeze or Rales. Heart: Regular rate and rhythm, normal S1/S2, no murmurs, Left ICD tender / swollen.. Abdomen: soft, nontender, nondistended. Normoactive bowel sounds. / Rectal: Refused and deferred. Extremities: No Cyanosis , clubbing or edema. Bilateral LE's +2 edema Neuro: A&O x 3, Able to move all extremities Skin: warm, no rashes or lesions Psych: Normal mood and affect Assessment/Plan Assessment/Plan 1. Congestive heart failure. 2. Questionable apical left ventricular thrombus / LV thrombus 3. Factor V Leiden deficiency, off anticoagulation due to removal of atrial leads on the 12/15/2016. 4. Recent tricuspid annuloplasty repair with a 30 Chadwick-Castanon pericardial valve. 5. Tamponade status post pericardial window. 6. Permanent pacemaker implantable cardioversion defibrillator implantation with atrial leads, redo recently. 7. Pleural effusion status post thoracentesis possibly. 8. Ischemic cardiomyopathy. 9. History of cerebrovascular accident. 10. History of inferior vena cava filter placement. 11. Renal insufficiency history. 12. Anemia 13. Eliquis intolerance 14. Hematoma Vs. Abscess around ICD. Plan: monitor labs on Coumadin 5mg po QHS PT Mobility Full code F/U with cardiology recommendations CT chest noted DC home with HH or SNF Claudio Michel MD Dec 29, 2016 12:49
--- NOTE | 2016-12-29 15:16 | General Progress Note ---
Assessment/Plan Assessment/Plan (1) Chest wall pain following surgery (2) S/P Tricuspid valve replacement (3) Congestive heart failure (4) COPD (chronic obstructive pulmonary disease) (5) Lumbar DDD (6) Lumbar Spondylosis (7) Lumbar Radiculopathy Patient will be continued on Dilaudid and Percocet. Pt was d/w Dr. Mota and he concurred. Subjective Date patient seen: Dec 29, 2016 Time patient seen: 02:15 - PM Allergies: Coded Allergies: DABIGATRAN ETEXILATE (Unverified Allergy, Unknown, 12/21/16) KETOROLAC (Verified Allergy, Unknown, 11/17/11) KETOROLAC TROMETHAMINE (Unverified Allergy, Unknown, 02/05/16) UNK MORPHINE (Verified Allergy, Unknown, 11/17/11) Subjective Constitutional: Reports: weakness HEENT: Reports: no symptoms Cardiovascular: Reports: chest pain Respiratory: Reports: shortness of breath Gastrointestinal/Abdominal: Reports: no symptoms Genitourinary: Reports: no symptoms Neurologic/Psychiatric: Reports: weakness Endocrine: Reports: no symptoms Hematologic/Lymphatic: Reports: no symptoms Subjective: Patient is comfortable and is in bed tolerating the pain on the Dilaudid with no adverse reaction. Had BM. Objective Last 24 Hour Vital Signs Date Time Temp Pulse Resp B/P Pulse Ox O2 Delivery O2 Flow Rate FiO2 12/29/16 11:57 98.1 81 20 127/71 98 Nasal Cannula 2.0 12/29/16 08:21 97.8 80 20 118/68 99 Nasal Cannula 2.0 12/29/16 07:37 Nasal Cannula 2.0 12/29/16 07:35 100 Nasal Cannula 2.0 12/29/16 07:34 84 20 Nasal Cannula 2.0 12/29/16 07:18 97.9 12/29/16 04:18 97.9 80 18 135/69 98 Room Air 12/29/16 00:09 96.8 81 20 137/73 98 Room Air 12/28/16 20:26 96 Nasal Cannula 3.0 32 12/28/16 20:26 Nasal Cannula 3.0 32 12/28/16 20:25 80 18 Nasal Cannula 3.0 32 12/28/16 19:54 96.5 81 20 119/65 99 Room Air Intake and Output 12/28/16 12/29/16 19:00 07:00 Intake Total 480 ml 320 ml Balance 480 ml 320 ml Intake Oral 480 ml 320 ml # Voids 10 # Bowel Movements 1 Laboratory Tests 12/29/16 04:00: Phosphorus Level 3.6, Magnesium Level 2.0 12/29/16 08:00: Prothrombin Time 23.5H, Prothromb Time International Ratio 2.2H Height (Feet): 6 Height (Inches): 1.00 Weight (Pounds): 201 Objective General Appearance: no apparent distress, alert EENT: PERRL/EOMI, normal ENT inspection Neck: supple, normal inspection Cardiovascular: pacemaker/AICD Respiratory/Chest: decreased breath sounds Abdomen: soft, no organomegaly Extremities: swelling Edema: 1+ Generalized Neurologic: alert, oriented x 3 Skin: warm/dry HILTON CABRALES Dec 29, 2016 15:16
[2016-12-29 16:13] VITALS: BP 129/70
[2016-12-29] MEDS ORDERED: Warfarin Sodium 7.5mg ORAL ONE (17:00)
--- NOTE | 2016-12-29 18:30 | Cardiology Progress Note ---
Assessment/Plan Assessment/Plan 1. Congestive heart failure. 2. Questionable apical left ventricular thrombus. 3. Factor V Leiden deficiency, off anticoagulation due to removal of atrial leads on the 12/15/2016. 4. Recent tricuspid annuloplasty repair with a 30 Chadwick-Castanon pericardial valve. 5. Tamponade status post pericardial window. 6. Permanent pacemaker implantable cardioversion defibrillator implantation with atrial leads removal and redo 12/14 7. Pleural effusion status post thoracentesis possibly. 8. Ischemic cardiomyopathy. 9. History of cerebrovascular accident. 10. History of inferior vena cava filter placement. 11. Renal insufficiency history. 12. anemia with acute drop in h/h 13. ? LV thrombus 14. Eliquis intolerance 15. peripacer hematoma ? off anticoagulation with lmwh due to hematoma on the pacer jsut on couamdin inr 1.5 today bp is ok on lasix to daily hematoma not look bigger still on 12/29/2016 ct noted doubt infection not febrile will decrease ecotrin for now Subjective Respiratory: Reports: shortness of breath - better Gastrointestinal/Abdominal: Denies: abdominal pain Genitourinary: Denies: burning Subjective breathign is better Objective Last 24 Hour Vital Signs Date Time Temp Pulse Resp B/P Pulse Ox O2 Delivery O2 Flow Rate FiO2 12/29/16 16:13 98.3 80 20 129/70 99 Nasal Cannula 2.0 12/29/16 11:57 98.1 81 20 127/71 98 Nasal Cannula 2.0 12/29/16 08:21 97.8 80 20 118/68 99 Nasal Cannula 2.0 12/29/16 07:37 Nasal Cannula 2.0 12/29/16 07:35 100 Nasal Cannula 2.0 12/29/16 07:34 84 20 Nasal Cannula 2.0 12/29/16 07:18 97.9 12/29/16 04:18 97.9 80 18 135/69 98 Room Air 12/29/16 00:09 96.8 81 20 137/73 98 Room Air 12/28/16 20:26 96 Nasal Cannula 3.0 32 12/28/16 20:26 Nasal Cannula 3.0 32 12/28/16 20:25 80 18 Nasal Cannula 3.0 32 12/28/16 19:54 96.5 81 20 119/65 99 Room Air General Appearance: no apparent distress Neck: no JVD Cardiovascular: normal rate, regular rhythm Respiratory/Chest: lungs clear, normal breath sounds Abdomen: normal bowel sounds, non tender, soft Extremities: trace edema Intake and Output 12/28/16 12/29/16 19:00 07:00 Intake Total 480 ml 320 ml Balance 480 ml 320 ml Intake Oral 480 ml 320 ml # Voids 10 # Bowel Movements 1 Laboratory Tests Test 12/29/16 04:00 12/29/16 08:00 Phosphorus Level 3.6 mg/dL (2.5-4.8) Magnesium Level 2.0 mg/dL (1.7-2.5) Prothrombin Time 23.5 SEC (9.30-11.50) H Prothromb Time International Ratio 2.2 (0.9-1.1) H [place] ALVAREZ Dec 29, 2016 18:30
[2016-12-29 20:00] VITALS: BP 120/79
--- NOTE | 2017-01-01 09:42 | Discharge Summary ---
Discharge Summary Hospital Course Date of Admission Dec 21, 2016 at 03:13 Date of Discharge Dec 29, 2016 at 20:30 Admitting Diagnosis CHEST PAIN, CHF HPI Nii Goode is a 61 year old male who was admitted on Dec 21, 2016 at 03: 13 for Chest Pain,Congestive Heart Failure Hospital Course dc summary #[id number] Discharge Medications New Medications: Warfarin Sod* (Coumadin*) 5 Mg Tablet 5 MG ORAL DAILY for 30 Days, TAB Continued Medications: Acetaminophen* (Tylenol Extra Strength*) 500 Mg Tablet 500 MG ORAL Q6H PRN for Mild Pain/Temp > 100.5, TAB 0 Refills Albuterol Sulfate* (Albuterol Sulfate Hhn*) 2.5 Mg/3 Ml Vial.neb 3 ML INH Q4H PRN for Shortness of Breath, EA Amiodarone Hcl* (Cordarone*) 200 Mg Tablet 200 MG ORAL EVERY 12 HOURS, TAB Aspirin* (Aspir-Kerry*) 325 Mg Tablet.dr 325 MG ORAL DAILY, TAB Docusate Sodium* (Docusate Sodium*) 100 Mg Capsule 100 MG ORAL TWICE A DAY, CAP Furosemide* (Lasix*) 40 Mg Tablet 40 MG ORAL EVERY 12 HOURS, TAB Ipratropium [place] 0.5MG/2.5ML (Ipratropium [place] 0.5MG/2.5ML) 0.2 Mg/1 Ml Solution 0.5 MG HHN Q4HR PRN for Shortness of Breath, #28 EA Lorazepam* (Ativan*) 0.5 Mg Tablet 0.5 MG ORAL THREE TIMES A DAY, TAB Magnesium Hydroxide* (Milk Of Magnesia*) 400 Mg/5 Ml Oral.susp 30 ML ORAL BID PRN for Constipation, ML Na Phos,M-B/Na Phos,Di-Ba* (Fleet Enema*) 133 Ml Enema 133 ML RECTAL DAILY PRN for Constipation, ML 0 Refills Oxycodone Hcl Er* (Oxycontin*) 20 Mg Tab.er.12h 20 MG ORAL EVERY 12 HOURS, TAB OXYCODONE HCl* (Roxicodone*) 15 Mg Tablet 15 MG ORAL Q4HR PRN for For Pain, TAB Pantoprazole* (Protonix*) 40 Mg Tablet.dr 40 MG ORAL DAILY, TAB Potassium Chloride (Potassium Chloride) 10 Meq Tablet.er 20 MEQ ORAL DAILY, #30 TAB 0 Refills Discontinued Medications: Cephalexin* (Keflex*) 500 Mg Capsule 500 MG ORAL EVERY 8 HOURS, CAP Discharge Condition Upon Discharge: stable Discharge Disposition Patient was discharged to Home with home health services Discharge Diagnoses: Greg ([facility]),Katerine ECHEVERRIA Jan 01, 2017 09:42
--- NOTE | 2017-01-02 00:02 | Discharge Summary 2 SIG ---
DATE OF ADMISSION: 12/21/2016 DATE OF DISCHARGE: 12/29/2016 REASON FOR ADMISSION: The patient is a 61-year-old male with history of coronary artery disease, cardiomyopathy, chronic obstructive pulmonary disease, hypertension, cocaine abuse, opioid dependency, DVT, recently underwent tricuspid valve replacement and ICD placement [facility] The patient started to have chest pain at the facility and was transferred to [facility] for further evaluation. Troponin was negative. Chest x-ray revealed developing of congestive heart failure. The patient was afebrile. No leukocytosis. Anemic hemoglobin 8.7 and hematocrit 27.4. Troponin was negative. ProBNP was 3221. Electrolytes were stable. The patient was admitted for further management. ADMITTING DIAGNOSES: 1. Chest wall pain following surgery. 2. Cardiomyopathy. 3. Congestive heart failure. 4. Chronic obstructive pulmonary disease. 5. Anemia. 6. History of cocaine abuse. 7. Opioid dependency. HOSPITAL STAY: The patient was admitted to telemetry floor. Cardiology consult, pulmonology consult and pain specialist consult were requested. Supplemental oxygen and pulmonary toilet provided as needed. The patient was reusing nasal cannula and desaturated on room air. The patient needed an arrangement for home oxygen, which was arranged prior to patient discharge. CT of the chest revealed evidence of multiloculated moderate sized right pleural effusion as well as the left anterior chest wall pacemaker, which was noted with a soft tissue swelling or hematoma surrounded by IVC filter. The patient noted to have swelling around the surgical site. There was a possible apical left ventricular thrombus. The patient was started on anticoagulation, however, due to the possible shekhar-pacer hematoma Lovenox was discontinued. The patient was continued only on Coumadin INR therapeutic on the day of discharge. Cardiology closely followed. Serial troponins were negative. EKG revealed no acute changes. The patient was ruled out for acute [place]. The patient with extensive cardiac surgery including tamponade, status post pericardial window, automatic implanted cardioverter defibrillator, ischemic cardiomyopathy, valvular heart disease, and congestive heart failure. According to field laborer and curer acid drum, chest wall pain reproducible on palpation due to the recent open-heart surgery. Cardiology closely followed. Echocardiogram this admission revealed ejection fraction of 40% to 45%, right ventricular systolic pressure of 52 consistent with moderate pulmonary hypertension, moderate aortic regurgitation, mitral regurgitation, tricuspid regurgitation, and possible left apical thrombus. The patient was started on diuretic. Renal parameters, electrolytes, intake and output were closely monitored. Dose decreased by field laborer of [place] after the patient improved. Initially, anticoagulation as mentioned above with Lovenox and Coumadin to bridge the therapeutic INR, however, due to the possible shekhar-pacer hematoma evident on the CT of the chest Lovenox was stopped. The patient was discharged on Coumadin INR still subtherapeutic. Anemia workup revealed low iron and low TIBC. The patient required blood transfusion. Hemoglobin and hematocrit were stable at the baseline prior to discharge. The patient is intolerant to Eliquis and the patient was on Coumadin therefore. Aspirin and amiodarone were continued. The patient was on empiric antibiotics. GI prophylaxis provided. Pain management addressed. Bowel regimen instituted. The patient was stable for discharge home with home health services. Follow up with the primary medical doctor and field laborer. DISCHARGE DIAGNOSES: 1. Chest wall pain following surgery. 2. Congestive heart failure. 3. Possible apical left ventricular thrombus. 4. Acute anemia status post blood transfusion. 5. Automatic implanted cardioverter defibrillator, (redone recently). 6. Recent tricuspid annuloplasty repair. 7. Chest wall pain/postoperative pain. 8. Possible shekhar-pacer hematoma. 9. Factor V Leiden deficiency. 10. Ischemic cardiomyopathy. 11. Moderate pulmonary hypertension. 12. Valvular heart disease; moderate aortic regurgitation, moderate tricuspid regurgitation, and moderate mitral regurgitation. 13. History of inferior vena cava filter placement. 14. History of cerebrovascular accident. 15. Hypomagnesemia. Of note, electrolytes were replaced as needed and stable prior to discharge. 16. Tamponade status post recent pericardial window. 17. Multiloculated. 18. Moderate right pleural effusion likely secondary to recent surgery. DISCHARGE MEDICATIONS: See medication reconciliation list. DISCHARGE INSTRUCTIONS: The patient was discharged home with home health services. Closely follow up with PMD and Cardiology. Claudio Michel M.D. I have been assigned to dictate discharge summary on this account and I was not involved in the patient's management. Katerine Garza N.P. (vanchtein) DR: NADIA JOB#: [id number] CC:
== END 2016-12-29 20:30 | disposition home or self-care (01) | DRG 920 ==
LOC: EDBD 02:11 → EMR 02:40 → 2E 03:13 → EDBEDREQ 03:17 → 4W 12-25 20:16
PROC: 02HV33Z Insertion of Infusion Device into Superior Vena Cava, Percutaneous Approach (ICD-10-PCS; principal; 2016-12-25)
PROC: 30233N1 Transfusion of Nonautologous Red Blood Cells into Peripheral Vein, Percutaneous Approach (ICD-10-PCS; 2016-12-26)
DX: L76.32 Postprocedural hematoma of skin and subcutaneous tissue following other procedure (principal); D68.2 Hereditary deficiency of other clotting factors; I31.4 Cardiac tamponade; I27.2 Other secondary pulmonary hypertension; I50.9 Heart failure, unspecified; F11.20 Opioid dependence, uncomplicated; I51.3 Intracardiac thrombosis, not elsewhere classified; Y83.8 Other surgical procedures as the cause of abnormal reaction of the patient, or of later complication, without mention of misadventure at the time of the procedure; E83.42 Hypomagnesemia; G89.12 Acute post-thoracotomy pain; J44.9 Chronic obstructive pulmonary disease, unspecified; Z95.2 Presence of prosthetic heart valve; Z79.01 Long term (current) use of anticoagulants; Z95.810 Presence of automatic (implantable) cardiac defibrillator; Z86.73 Personal history of transient ischemic attack (TIA), and cerebral infarction without residual deficits; I25.10 Atherosclerotic heart disease of native coronary artery without angina pectoris; Z88.6 Allergy status to analgesic agent; Z88.8 Allergy status to other drugs, medicaments and biological substances; F14.21 Cocaine dependence, in remission; Z86.718 Personal history of other venous thrombosis and embolism; I25.5 Ischemic cardiomyopathy; M51.16 Intervertebral disc disorders with radiculopathy, lumbar region; M47.896 Other spondylosis, lumbar region; I08.3 Combined rheumatic disorders of mitral, aortic and tricuspid valves; D50.9 Iron deficiency anemia, unspecified
CPT/HCPCS: 36415; 36569; 71010; 71260; 76937; 80048; 80053; 80069; 81003; 82248; 82270; 82378; 82550; 82553; 82607; 82746; 83540; 83550; 83615; 83735; 83880; 84100; 84484; 85007; 85025; 85044; 85060; 85610; 85651; 85730; 86850; 86900; 86901; 86920; 87081; 93005; 93306; 93970; 94640; 94664; 94760; J2405; J7620